=== PATIENT | female | born 1940 | race Caucasian/White ===

== ENCOUNTER 2019-12-06 15:23 | Outpatient (CLI) | payer MEDICARE, SELFPAY | END 2019-12-06 15:24 | disposition home or self-care (01) | LOC: CHSLAB 15:26 | PROVIDERS: PCP Family Medicine; Visit Provider Specialist | DX: L72.0 Epidermal cyst (principal) | CPT/HCPCS: 88305 ==

== ENCOUNTER 2020-07-19 08:55 | Outpatient (CLI) | payer MEDICARE, SELFPAY ==
[2020-07-19 09:24] LABS: Basophils Absolute Auto 0.1 K/mm3 (0.0-0.1); Basophils Percent Auto 1.2 % (0.2-1.2); Eosinophils Absolute Auto 0.2 K/mm3 (0-0.3); Hematocrit 45.9 % (37.0-47.0); Hemoglobin 15.5 g/dL (12.0-15.0); Immature Granulocyte Absolute 0.01 K/mm3 (0.00-0.031); Immature Granulocyte Percent A 0.2 % (0-0.5); Lymphocytes Absolute Auto 1.64 K/mm3 (0.9-3.2); Lymphocytes Percent Auto 38.5 % (18.3-44.2); Mean Corpuscular HGB Conc 33.8 g/dl (32-36); Mean Corpuscular Hemoglobin 30.8 pg (26-34); Mean Corpuscular Volume 91.1 fl (80-100); Mean Platelet Volume 10.4 fl (7.4-10.4); Monocytes Absolute Auto 0.3 K/mm3 (0.1-0.6); Monocytes Percent Auto 6.1 % (2.6-8.5); Neutrophils Absolute Auto 2.1 K/mm3 (1.3-6.7); Platelet Count Result 196 k/mm3 (150-375); Red Blood Count 5.04 M/mm3 (4.2-5.4); Red Cell Distribution Width 13.5 % (11.5-14.5); White Blood Count 4.3 K/mm3 (4.5-10.0)
[2020-07-19 09:35] LABS: Alanine Aminotransferase 23 U/L (4-35); Albumin Level 4.6 g/dL (3.5-5.1); Alkaline Phosphatase 107 U/L (38-126); Anion Gap 7 mmol/L (8-16); Aspartate Amino Transferase 42 U/L (14-36); Bilirubin,Total 0.9 mg/dL (0.2-1.3); Blood Urea Nitrogen 15 mg/dL (7-17); Carbon Dioxide 35 mmol/L (22-30); Chloride 103 mmol/L (98-107); Cholesterol 202 mg/dL (0-200); Estimated Glomerular Filt Rate 60; Glucose 107 mg/dL (65-105); HDL Direct 74 mg/dL; Potassium 4.1 mmol/L (3.4-5.0); Sodium 145 mmol/L (137-145); Triglycerides 80 mg/dL (<150)
[2020-07-19 09:46] LABS: LDL Cholesterol Direct 98 mg/dL
[2020-07-19 10:02] LABS: Add Urine Microscopic? NO; Appearance Urine Clear (Clear); Bilirubin Urine Negative (Negative); Blood Urine Negative (Negative); Color Urine Colorless (Yellow); Glucose Urine UA Negative (Negative); Ketones Urine Negative (Negative); Leukocyte Esterase Ur Negative LEU/UL (NEGATIVE); Nitrate Urine Negative (Negative); Protein Urine Negative (Negative); Specific Grav Ur 1.005 (1.001-1.035); Urobilinogen Urine Negative mg/dL (<2.0)
== END 2020-07-19 08:56 | disposition home or self-care (01) ==
PROVIDERS: PCP Family Medicine; Visit Provider Family Medicine
DX: E78.2 Mixed hyperlipidemia (principal); R53.83 Other fatigue; I10 Essential (primary) hypertension
CPT/HCPCS: 36415; 80053; 80061; 81003; 84443; 85025; 85027

== ENCOUNTER 2021-01-22 07:07 | Outpatient (CLI) | payer MEDICARE, SELFPAY ==
[2021-01-22 08:11] LABS: Alanine Aminotransferase 26 U/L (4-35); Albumin Level 4.5 g/dL (3.5-5.1); Alkaline Phosphatase 106 U/L (38-126); Anion Gap 9 mmol/L (8-16); Aspartate Amino Transferase 45 U/L (14-36); Bilirubin,Total 0.9 mg/dL (0.2-1.3); Blood Urea Nitrogen 19 mg/dL (7-17); Calcium 9.7 mg/dL (8.4-10.2); Carbon Dioxide 28 mmol/L (22-30); Chloride 106 mmol/L (98-107); Estimated Glomerular Filt Rate > 60; Glucose 103 mg/dL (65-105); Potassium 3.8 mmol/L (3.4-5.0); Sodium 143 mmol/L (137-145)
== END 2021-01-22 07:08 | disposition home or self-care (01) ==
LOC: ANHLAB 07:10
PROVIDERS: PCP Family Medicine; Visit Provider Family Medicine
DX: I10 Essential (primary) hypertension (principal)
CPT/HCPCS: 36415; 80053

== ENCOUNTER 2021-06-26 09:27 | Outpatient (CLI) | payer MEDICARE, SELFPAY ==
[2021-06-26 10:01] LABS: Hematocrit 44.6 % (37.0-47.0); Hemoglobin 14.7 g/dL (12.0-15.0); Mean Corpuscular Hemoglobin 31.1 pg (26-34); Mean Corpuscular Volume 94.5 fl (80-100); Mean Platelet Volume 10.3 fl (7.4-10.4); Platelet Count Result 175 k/mm3 (150-375); Red Blood Count 4.72 M/mm3 (4.2-5.4); Red Cell Distribution Width 13.5 % (11.5-14.5)
[2021-06-26 10:02] LABS: Alanine Aminotransferase 31 U/L (4-35); Albumin Level 4.6 g/dL (3.5-5.1); Alkaline Phosphatase 92 U/L (38-126); Anion Gap 6 mmol/L (8-16); Aspartate Amino Transferase 48 U/L (14-36); Bilirubin,Total 0.8 mg/dL (0.2-1.3); Blood Urea Nitrogen 22 mg/dL (7-17); Carbon Dioxide 30 mmol/L (22-30); Chloride 104 mmol/L (98-107); Cholesterol 200 mg/dL (0-200); Estimated Glomerular Filt Rate > 60; Glucose 111 mg/dL (65-110); HDL Direct 71 mg/dL; Sodium 140 mmol/L (137-145); Triglycerides 70 mg/dL (<150)
[2021-06-26 10:04] LABS: Add Urine Microscopic? YES; Appearance Urine Cloudy (Clear); Bacteria Urine 2+ /hpf; Bilirubin Urine Negative (Negative); Blood Urine Negative (Negative); Color Urine Yellow (Yellow); Glucose Urine UA Negative (Negative); Ketones Urine Negative (Negative); Leukocyte Esterase Ur Negative LEU/UL (NEGATIVE); Mucus Urine Rare /lpf; Nitrate Urine Negative (Negative); Protein Urine Negative (Negative); RBC Urine 0-2 /hpf (0-2); Specific Grav Ur 1.009 (1.001-1.035); Squamous Epithelial Cell Urine Occasional /hpf (Few); Urobilinogen Urine Negative mg/dL (<2.0)
[2021-06-26 10:13] LABS: LDL Cholesterol Direct 93 mg/dL
== END 2021-06-26 09:28 | disposition home or self-care (01) ==
LOC: ANHLAB 09:29
PROVIDERS: PCP Family Medicine; Visit Provider Family Medicine
DX: E78.5 Hyperlipidemia, unspecified (principal); I10 Essential (primary) hypertension; R53.83 Other fatigue
CPT/HCPCS: 36415; 80053; 80061; 81001; 84443; 85027

== ENCOUNTER 2021-06-28 12:35 | Outpatient (CLI) | payer MEDICARE, SELFPAY ==
[2021-06-28 13:15] LABS: Add Urine Microscopic? NO; Appearance Urine Clear (Clear); Bilirubin Urine Negative (Negative); Blood Urine Negative (Negative); Color Urine Straw (Yellow); Glucose Urine UA Negative (Negative); Ketones Urine Negative (Negative); Leukocyte Esterase Ur Negative LEU/UL (NEGATIVE); Nitrate Urine Negative (Negative); Protein Urine Negative (Negative); Specific Grav Ur 1.011 (1.001-1.035); Urobilinogen Urine Negative mg/dL (<2.0)
== END 2021-06-28 12:36 | disposition home or self-care (01) ==
PROVIDERS: PCP Family Medicine; Visit Provider Physician Assistant
DX: R30.0 Dysuria (principal)
CPT/HCPCS: 81003; 87086

== ENCOUNTER 2022-02-11 09:53 | Outpatient (CLI) | payer MEDICARE, SELFPAY ==
[2022-02-11 10:27] LABS: Alanine Aminotransferase 27 U/L (6-35); Albumin Level 4.5 g/dL (3.5-5.1); Alkaline Phosphatase 106 U/L (38-126); Anion Gap 6 mmol/L (8-16); Aspartate Amino Transferase 37 U/L (14-36); Bilirubin,Total 0.6 mg/dL (0.2-1.3); Blood Urea Nitrogen 21 mg/dL (7-17); Calcium 9.4 mg/dL (8.4-10.2); Carbon Dioxide 30 mmol/L (22-30); Chloride 106 mmol/L (98-107); Estimated Glomerular Filt Rate > 60; Glucose 112 mg/dL (65-110); Potassium 3.9 mmol/L (3.4-5.0); Sodium 142 mmol/L (137-145)
[2022-02-11 12:44] LABS: Hemoglobin A1C 5.3 % (<5.7)
== END 2022-02-11 09:54 | disposition home or self-care (01) ==
LOC: ANHLAB 09:56
PROVIDERS: PCP Family Medicine; Visit Provider Family Medicine
DX: R73.01 Impaired fasting glucose (principal); I10 Essential (primary) hypertension
CPT/HCPCS: 36415; 80053; 83036

== ENCOUNTER 2022-08-19 09:28 | Outpatient (CLI) | payer MEDICARE, SELFPAY ==
[2022-08-19 10:05] LABS: Hematocrit 45.6 % (37.0-47.0); Hemoglobin 15.1 g/dL (12.0-15.0); Mean Corpuscular HGB Conc 33.1 g/dl (32-36); Mean Corpuscular Hemoglobin 31.3 pg (26-34); Mean Corpuscular Volume 94.4 fl (80-100); Mean Platelet Volume 9.8 fl (7.4-10.4); Platelet Count Result 176 k/mm3 (150-375); Red Blood Count 4.83 M/mm3 (4.2-5.4); Red Cell Distribution Width 13.4 % (11.5-14.5); White Blood Count 3.9 K/mm3 (4.5-10.0)
[2022-08-19 10:16] LABS: Alanine Aminotransferase 34 U/L (6-35); Albumin Level 4.6 g/dL (3.5-5.1); Alkaline Phosphatase 102 U/L (38-126); Anion Gap 6 mmol/L (8-16); Aspartate Amino Transferase 43 U/L (14-36); Bilirubin,Total 0.8 mg/dL (0.2-1.3); Blood Urea Nitrogen 20 mg/dL (7-17); Calcium 9.4 mg/dL (8.4-10.2); Carbon Dioxide 31 mmol/L (22-30); Chloride 101 mmol/L (98-107); Cholesterol 214 mg/dL (0-200); Estimated Glomerular Filt Rate > 60; Glucose 103 mg/dL (65-110); HDL Direct 67 mg/dL; Potassium 3.6 mmol/L (3.4-5.0); Sodium 138 mmol/L (137-145); Triglycerides 61 mg/dL (<150)
[2022-08-19 10:18] LABS: Add Urine Microscopic? NO; Appearance Urine Clear (Clear); Bilirubin Urine Negative (Negative); Blood Urine Negative (Negative); Color Urine Light Yellow (Yellow); Glucose Urine UA Negative (Negative); Ketones Urine Negative (Negative); Leukocyte Esterase Ur Negative LEU/UL (NEGATIVE); Nitrate Urine Negative (Negative); Protein Urine Negative (Negative); Urobilinogen Urine 0.2 mg/dL (<2.0)
[2022-08-19 10:28] LABS: LDL Cholesterol Direct 91 mg/dL
[2022-08-19 10:38] LABS: Hemoglobin A1C 5.7 % (<5.7)
[2022-08-19 12:51] LABS: Vitamin D 25 Hydroxy 56.8 ng/mL
== END 2022-08-19 09:29 | disposition home or self-care (01) ==
PROVIDERS: PCP Family Medicine; Visit Provider Family Medicine
DX: E55.9 Vitamin D deficiency, unspecified (principal); E78.5 Hyperlipidemia, unspecified; I10 Essential (primary) hypertension; R53.83 Other fatigue; R73.01 Impaired fasting glucose
CPT/HCPCS: 36415; 80053; 80061; 81003; 82306; 83036; 84443; 85027

== ENCOUNTER 2023-03-09 09:44 | Outpatient (CLI) | payer MEDICARE, SELFPAY ==
[2023-03-09 11:22] LABS: Hemoglobin A1C 5.4 % (<5.7)
[2023-03-09 11:23] LABS: Alanine Aminotransferase 36 U/L (6-35); Albumin Level 4.4 g/dL (3.5-5.1); Alkaline Phosphatase 96 U/L (38-126); Anion Gap 0 mmol/L (8-16); Aspartate Amino Transferase 47 U/L (14-36); Bilirubin,Total 0.9 mg/dL (0.2-1.3); Blood Urea Nitrogen 23 mg/dL (7-17); Calcium 9.5 mg/dL (8.4-10.2); Carbon Dioxide 35 mmol/L (22-30); Chloride 102 mmol/L (98-107); Estimated Glomerular Filt Rate > 60; Glucose 97 mg/dL (65-110); Potassium 4.2 mmol/L (3.4-5.0); Sodium 137 mmol/L (137-145)
== END 2023-03-09 09:45 | disposition home or self-care (01) ==
PROVIDERS: PCP Family Medicine; Visit Provider Family Medicine
DX: R73.01 Impaired fasting glucose (principal); I10 Essential (primary) hypertension
CPT/HCPCS: 36415; 80053; 83036

== ENCOUNTER 2023-04-26 12:14 | Observation (INO) | payer MEDICARE, SELFPAY ==
[2023-04-26] VITALS (18 sets, daily range): BP systolic 141–187; BP diastolic 80–99; PULSE 62–93; RESP 12–29; TEMP 36.4–36.9; O2SAT 99–100; BMI 18.0
--- NOTE | ~2023-04-26 | XR_ITS ---
XR shoulder LT min 2V DATE: 04/26/2023 14:16 INDICATION: Fall today. Left shoulder pain TECHNIQUE: 4 views. COMPARISON: None FINDINGS: There is a comminuted fracture of the proximal humerus, including surgical neck and greater tuberosity fractures, with no significant displacement. Normal alignment at the acromioclavicular and glenohumeral joints. Osteopenia. IMPRESSION: Comminuted fracture of surgical neck and greater tuberosity Reviewed, dictated and finalized at location A.
--- NOTE | ~2023-04-26 | CT_ITS ---
EXAMINATION: CT brain wo con DATE: 04/26/2023 14:01 INDICATION: Fall. Struck left side of head. Syncope. Loss of consciousness. Neck pain. TECHNIQUE: Computed tomography (CT) of the head was performed without intravenous contrast. The mA wa s adjusted according to patient size. Iterative reconstruction technique was employed. Exam dose: 60 5.33 mGy-cm total exam DLP. COMPARISON: 05/12/2018 CT brain FINDINGS: High left parietal cephalohematoma is noted. No skull fracture is detected. No coup or contrecoup intracranial injury is detected. There is intracranial cerebral atherosclerosis including vertebral arteries, basilar artery and bilat eral carotid siphon internal carotid arteries. There is nonspecific diminished attenuation of the cer ebral white matter, likely due to chronic small vessel ischemic changes. No intracranial mass lesion or hemorrhage or cerebrovascular accident is detected. No midline shift o r mass effect or subdural or epidural hematoma is detected. The mastoid air cells and included paranasal sinuses are normally developed and aerated. IMPRESSION: High left parietal cephalohematoma; no skull fracture or acute intracranial finding Cerebral atherosclerosis and chronic small vessel ischemic changes of the cerebral white matter Reviewed, dictated and finalized at Location A. Reviewed, dictated and finalized at location A. IMPRESSION: High left parietal cephalohematoma; no skull fracture or acute int racranial finding Cerebral atherosclerosis and chronic small vessel ischemic changes of the cereb ral white matter
--- NOTE | ~2023-04-26 | XR_ITS ---
XR chest 1V DATE: 04/26/2023 14:16 INDICATION: Syncope TECHNIQUE: AP view COMPARISON: 05/12/2018 2 view chest FINDINGS: There is bilateral hyperinflation. No pulmonary infiltrate or consolidation, pulmonary vas cular congestion or pleural effusion or pneumothorax. Cardiomegaly. There is aortic tortuosity. There is fracture of the surgical neck and greater tuberosity of the proximal humerus. Osteopenia. IMPRESSION: Left humeral surgical neck and greater tuberosity fractures Bilateral hyperinflation; no active cardiopulmonary disease Reviewed, dictated and finalized at location A.
--- NOTE | ~2023-04-26 | US_ITS ---
EXAMINATION: US carotid duplex BI DATE: 04/27/2023 11:17 INDICATION: Syncope TECHNIQUE: Grayscale, color Doppler, and pulsed Doppler images of the cervical carotid arteries were obtained. The degree of vessel stenosis is placed in one of the following categories: normal, <50%, 5 0-69%, >=70% but less than near-occlusion, near-occlusion, or total occlusion. Note that percent sten osis relative to normal distal artery lumen diameter is indirectly measured from velocity measurement s as described by Clemente, et al. Radiology 2003; 229:340-346. COMPARISON: None. FINDINGS: RIGHT: The right common carotid artery (CCA) peak systolic velocity (PSV) is 95 cm/s. The right internal car otid artery (ICA) PSV is 72 cm/s. The right ICA end-diastolic velocity (EDV) is 18 cm/s. The right IC A/CCA PSV ratio is 0.8. Grayscale and color Doppler images yield an estimate of <50% diameter reducti on from plaque in the ICA. The external carotid artery (ECA) PSV is 90 cm/s. There is antegrade flow in the right vertebral artery. LEFT: The left CCA PSV is 99 cm/s. The left ICA PSV is 62 cm/s. The left ICA EDV is 20 cm/s. The left ICA/C CA PSV ratio is 0.6. Grayscale and color Doppler images yield an estimate of <50% diameter reduction from plaque in the ICA. The ECA PSV is 71 cm/s. There is antegrade flow in the left vertebral artery. IMPRESSION: 1. <50% stenosis in the right internal carotid artery. 2. <50% stenosis in the left internal carotid artery. Reviewed, dictated and finalized at location A.
--- NOTE | ~2023-04-26 | CT_ITS ---
EXAMINATION: CT cervical spine wo con DATE: 04/26/2023 14:02 INDICATION: Fall. Neck pain. TECHNIQUE: Computed tomography (CT) of the cervical spine was performed without intravenous contrast. Automated exposure control and iterative reconstruction technique were employed. Exam dose: 93.86 m Gy-cm total exam DLP. COMPARISON: None FINDINGS: C1 and C2 are normally aligned and the odontoid process is intact. There is severe degenerative disc disease at C2-3. There is anterior and posterior fusion at C3-C5. There is very severe degenerative disc disease at C5-6 and C6-7. There is 5 mm anterolisthesis with associated severe degenerative change at the apophyseal joints at C7-T1. IMPRESSION: No fracture is evident 4.3 mm anterolisthesis at C7-T1 with associated prominent degenerative change at the apophyseal joint s at this level Anterior and posterior fusion at C3-C5 Severe degenerative disc disease at C2-3 and particularly C5-6 and C6-7 Reviewed, dictated and finalized at Location A. Reviewed, dictated and finalized at location A. IMPRESSION: No fracture is evident 4.3 mm anterolisthesis at C7-T1 with associated prominent degenerative change a t the apophyseal joints at this level Anterior and posterior fusion at C3-C5 Severe degenerative disc disease at C2-3 and particularly C5-6 and C6-7
--- NOTE | ~2023-04-26 | XR_ITS ---
XR hip LT 2V w AP pelvis DATE: 04/26/2023 14:16 INDICATION: Fall today. Left hip pain. TECHNIQUE: AP pelvis. AP and lateral views of left hip. COMPARISON: 05/12/2018 pelvis FINDINGS: Levoscoliosis and multilevel degenerative disc disease of the lumbar spine. No pelvic fracture or bone destruction is detected. The sacroiliac joints and pubic symphysis are in tact. No fracture or dislocation, avascular necrosis or bone destruction of the left hip. IMPRESSION: No evidence of pelvic or left hip fracture Reviewed, dictated and finalized at location A.
--- NOTE | 2023-04-26 12:25 | ECG_ITS ---
Measurements Intervals [place] Rate: 68 P: 238 MO: 127 QRS: -58 QRSD: 104 T: 56 QT: 415 QTc: 442 Interpretive Statements ECTOPIC ATRIAL RHYTHM LEFT ANTERIOR FASCICULAR BLOCK [QRS AXIS <= -45, QR IN I, RS IN II] Nonspecific ST abnormality Abnormal ECG NO PREVIOUS ECG AVAILABLE FOR COMPARISON Electronically Signed On 04-27-2023 11:55:56 CDT by Roberto Gamino M.D.
[2023-04-26 12:46] LABS: Basophils Absolute Auto 0.1 K/mm3 (0.0-0.1); Basophils Percent Auto 0.9 % (0.2-1.2); Eosinophils Percent Auto 0.5 % (0-4.4); Hematocrit 47.2 % (37.0-47.0); Hemoglobin 15.6 g/dL (12.0-15.0); Immature Granulocyte Absolute 0.07 K/mm3 (0.00-0.031); Immature Granulocyte Percent A 1.3 % (0-0.5); Lymphocytes Absolute Auto 0.99 K/mm3 (0.9-3.2); Lymphocytes Percent Auto 17.8 % (18.3-44.2); Mean Corpuscular HGB Conc 33.1 g/dl (32-36); Mean Corpuscular Volume 93.8 fl (80-100); Mean Platelet Volume 10.4 fl (7.4-10.4); Monocytes Absolute Auto 0.3 K/mm3 (0.1-0.6); Monocytes Percent Auto 4.5 % (2.6-8.5); Neutrophils Absolute Auto 4.2 K/mm3 (1.3-6.7); Platelet Count Result 163 k/mm3 (150-375); Red Blood Count 5.03 M/mm3 (4.2-5.4); Red Cell Distribution Width 13.8 % (11.5-14.5); White Blood Count 5.6 K/mm3 (4.5-10.0)
[2023-04-26 12:57] LABS: Alanine Aminotransferase 29 U/L (6-35); Albumin Level 4.4 g/dL (3.5-5.1); Alkaline Phosphatase 88 U/L (38-126); Anion Gap 2 mmol/L (8-16); Aspartate Amino Transferase 42 U/L (14-36); Bilirubin,Total 0.7 mg/dL (0.2-1.3); Blood Urea Nitrogen 25 mg/dL (7-17); Calcium 9.6 mg/dL (8.4-10.2); Carbon Dioxide 30 mmol/L (22-30); Chloride 105 mmol/L (98-107); Estimated CRCL calculation 46 ml/min; Estimated Glomerular Filt Rate > 60; Glucose 114 mg/dL (65-110); Potassium 3.9 mmol/L (3.4-5.0); Sodium 137 mmol/L (137-145)
--- NOTE | 2023-04-26 13:11 | ED.SYNCOPE ---
HPI - Syncope General Chief Complaint: Syncope Stated Complaint: SYNCOPY History of Present Illness HPI narrative: Patient is an 82-year-old female with a history of hypertension presenting after syncopal episode. Patient states that she was doing some chores around the house when she suddenly passed out and fell on her left side. States that she does not remember feeling lightheaded prior to the event. No nausea, chest pain, shortness of breath. States that she was able to get up and she was having left shoulder and hip pain. States that she feels like she has a UTI due to urinary frequency. She denies headache, numbness or weakness, abdominal pain, vomiting, leg swelling. Reports a few episodes of diarrhea. Related Data Home Medications Medication Instructions Recorded Confirmed fluticasone propionate 50 1 spray intranasal DAILY PRN 08/10/19 04/26/23 mcg/actuation nasal Allergy Symptoms spray,suspension (Allergy Relief (fluticasone)) losartan 50 mg tablet 50 mg PO DAILY 08/10/19 04/26/23 nebivolol 20 mg tablet (Bystolic) 20 mg PO DAILY 08/10/19 04/26/23 cranberry 500 mg capsule 400 mg PO BID 03/07/20 04/26/23 docusate sodium 100 mg capsule 100 mg PO BID 03/07/20 04/26/23 (Stool Softener) multivitamin 1 tablet PO DAILY 03/07/20 04/26/23 psyllium husk 3.4 gram/5.4 gram 1 tbsp PO DAILY 03/07/20 04/26/23 oral powder (Metamucil) triamcinolone acetonide 0.1 % 1 applic topical DAILY PRN Allergy 07/30/20 04/26/23 topical cream Symptoms buspirone 10 mg tablet 10 mg PO DAILY 04/26/23 04/26/23 calcium citrate malate-vitamin D3 200 tablet PO DAILY 04/26/23 04/26/23 500 mg-200 unit tablet carboxymethylcellulose 0.5 1 drp EACH EYE QID PRN Dry Eyes 04/26/23 04/26/23 %-glycerin 0.9 % eye drops (Refresh Relieva) prednisolone acetate 1 % eye 1 drp RIGHT EYE TID 04/26/23 04/26/23 drops,suspension Allergies Allergy/AdvReac Type Severity Reaction Status Date / Time codeine Allergy Unknown Unknown Verified 03/16/23 10:17 levocetirizine Allergy Unknown Unknown Verified 03/16/23 10:17 levofloxacin Allergy Unknown Unknown Verified 03/16/23 10:17 miconazole Allergy Unknown Unknown Verified 03/16/23 10:17 nitrofurantoin Allergy Unknown Unknown Verified 03/16/23 10:17 Penicillins Allergy Unknown Unknown Verified 03/16/23 10:17 skin cleanser combination Allergy Unknown Unknown Verified 03/16/23 10:17 no.17 Sulfa (Sulfonamide Allergy Unknown Unknown Verified 03/16/23 10:17 Antibiotics) Review of Systems Review of Systems: All systems reviewed & are unremarkable except as noted in HPI and below PMFSH Past Medical History Medical History Anxiety Arthritis Cataracts, bilateral HTN (hypertension) Hypercholesterolemia Impaired fasting glucose Osteoporosis UTI (urinary tract infection) Surgical History Surgical History H/O: hysterectomy History of appendectomy Hx of cholecystectomy Hx of tonsillectomy Social History Social History Smoking status: Never smoker Second hand tobacco smoke exposure: No Alcohol intake: never Substance use: never Substance use type: does not use Lack of Transportation: No Lack of Food: Never True Current Housing: I Have Housing Concerned About Future Housing: No Difficulty Paying Gas/Electric Bills: No Difficulty Paying for Meds: No Currently Unemployed: No Education: Decline to Answer Difficulty w/ Childcare or Family Care: No Living arrangements: with family Occupation/Education: retired Gender identity (if verbalized by the patient): Female Spiritual care concerns: No Exam Narrative: GENERAL: Well-appearing, well-nourished, and in no acute distress. HEAD: Normocephalic, superficial abrasion left forehead and left cheek EYES: PERRLA and EOMI. ENT: Nares cl
[2023-04-26 13:30] LABS: INR 0.9; Prothrombin Time 12.9 Seconds (11.1-14.7)
[2023-04-26 13:31] LABS: Partial Thromboplastin Time 25.3 SECONDS (22.3-36.8)
[2023-04-26 13:33] LABS: Lipase 85 U/L (23-300); Magnesium 2.4 mg/dL (1.6-2.3)
[2023-04-26] MEDS: SODIUM CHLORIDE 0.9% IV 1,000 ML 999 ML IV CONT (13:40)
[2023-04-26 13:44] LABS: Troponin I < 0.012 ng/mL (0.000-0.034)
[2023-04-26 13:45] LABS: Appearance Urine Cloudy (Clear); Bacteria Urine None Seen /hpf; Bilirubin Urine Negative (Negative); Blood Urine Negative (Negative); Color Urine Yellow (Yellow); Glucose Urine UA Negative (Negative); Ketones Urine Trace mg/dL (Negative); Leukocyte Esterase Ur Negative LEU/UL (Negative); Nitrate Urine Negative (Negative); Non Pathogenic Casts 0-2; Protein Urine Negative (Negative); RBC Urine 0-2 /hpf (0-2); Specific Grav Ur 1.013 (1.001-1.035); Squamous Epithelial Cell Urine None seen /hpf (Few); Urobilinogen Urine 0.2 mg/dL (<2.0); WBC Urine 0-5 /hpf; pH Urine 8.5 (5.0-9.0)
[2023-04-26 13:50] LABS: Add Urine Microscopic? YES
[2023-04-26 13:52] LABS: Lactic Acid Reflex 2.1 mmol/L (0.7-2.0)
--- NOTE | 2023-04-26 15:52 | PM.IMHP ---
H&P: HPI History of Present Illness Date/Time: 04/26/23 15:52 Chief Complaint: This is an 82-year-old female patient who is typically completely independent and still drives who presents to the emergency department after a syncopal episode that was unprovoked. Narrative: Patient states that she had been in her bedroom getting her 's medications together when the next thing she knows she woke up lying on the floor with left arm pain and left hip pain. Patient reports that she has some tenderness to the left side of head as well. Patient states that before the incident she felt completely fine and she did not feel any symptoms before she apparently passed out. She denies any chest pain or shortness of breath. Patient denies any nausea or vomiting constipation diarrhea abdominal pain. Patient reports that her left arm hurts and her left hip did hurt but is already feeling better. Patient is aware that she has a fracture to her left shoulder and that the plan is to place this in a sling and have Orthopedics see her tomorrow. Orthopedics has been consulted by the emergency department. Review of Systems Review of Systems: All systems reviewed & are unremarkable except as noted in HPI and below PMFSH Past Medical History Medical History Anxiety Arthritis Cataracts, bilateral HTN (hypertension) Hypercholesterolemia Impaired fasting glucose Osteoporosis UTI (urinary tract infection) Surgical History Surgical History H/O: hysterectomy History of appendectomy Hx of cholecystectomy Hx of tonsillectomy Social History Social History Smoking status: Never smoker Second hand tobacco smoke exposure: No Alcohol intake: never Substance use: never Substance use type: does not use Living arrangements: with family Occupation/Education: retired Gender identity (if verbalized by the patient): Female Meds Home Medications and Allergies Home Medications Medication Instructions Recorded Confirmed Type fluticasone propionate 50 1 spray intranasal DAILY PRN 08/10/19 04/26/23 History mcg/actuation nasal Allergy Symptoms spray,suspension (Allergy Relief (fluticasone)) losartan 50 mg tablet 50 mg PO DAILY 08/10/19 04/26/23 History nebivolol 20 mg tablet (Bystolic) 20 mg PO DAILY 08/10/19 04/26/23 History cranberry 500 mg capsule 400 mg PO BID 03/07/20 04/26/23 History docusate sodium 100 mg capsule 100 mg PO BID 03/07/20 04/26/23 History (Stool Softener) multivitamin 1 tablet PO DAILY 03/07/20 04/26/23 History psyllium husk 3.4 gram/5.4 gram 1 tbsp PO DAILY 03/07/20 04/26/23 History oral powder (Metamucil) triamcinolone acetonide 0.1 % 1 applic topical DAILY PRN Allergy 07/30/20 04/26/23 History topical cream Symptoms alprazolam 0.25 mg tablet 0.25 mg PO DAILY #30 tabs 04/21/23 04/26/23 Rx estradiol 0.01% (0.1 mg/gram) 1 g vaginal 3XW #42.5 grams 04/22/23 04/26/23 Rx vaginal cream (Estrace) buspirone 10 mg tablet 10 mg PO DAILY 04/26/23 04/26/23 History calcium citrate malate-vitamin D3 200 tablet PO DAILY 04/26/23 04/26/23 History 500 mg-200 unit tablet carboxymethylcellulose 0.5 1 drp EACH EYE QID PRN Dry Eyes 04/26/23 04/26/23 History %-glycerin 0.9 % eye drops (Refresh Relieva) prednisolone acetate 1 % eye 1 drp RIGHT EYE TID 04/26/23 04/26/23 History drops,suspension Allergies Allergy/AdvReac Type Severity Reaction Status Date / Time codeine Allergy Unknown Unknown Verified 03/16/23 10:17 levocetirizine Allergy Unknown Unknown Verified 03/16/23 10:17 levofloxacin Allergy Unknown Unknown Verified 03/16/23 10:17 miconazole Allergy Unknown Unknown Verified 03/16/23 10:17 nitrofurantoin Allergy Unknown Unknown Verified 03/16/23 10:17 Penicillins Allergy Unknown Unknown Verified 03/16/23 10:17 skin cl
[2023-04-26 16:24] LABS: Troponin I < 0.012 ng/mL (0.000-0.034)
[2023-04-26 16:38] LABS: Reflex Lactic Acid Yes or No Add Lactic
--- NOTE | 2023-04-26 17:05 | ADMGEN ---
This patient, Sushma Berger, was admitted to 3 Med Surg Room 311-01 @ 1650. Patient/family oriented to hospital policies and general routines including ID bracelet, bed and alarms, visiting hours, pain management, procedures, bathroom and other care routines, personal items, smoking policy, room service/diet, and visiting hours. Information on how to activate the Rapid Response Team has been discussed. Patient/Family are encouraged to report perceived risks to care and to ask questions if they do not understand what they are told or what they should do.
[2023-04-26 17:47] LABS: Lactic Acid 1.3 mmol/L (0.7-2.0)
[2023-04-26] MEDS: MORPHINE SULFATE (*CRX) 2 MG/ML INJ IV PUSH ×2 (18:57→23:07)
[2023-04-26 19:55] LABS: Troponin I < 0.012 ng/mL (0.000-0.034)
[2023-04-26] MEDS: prednisoLONE ACETATE 1% OPHTH 5 ML 1 DROP RIGHT EYE (20:45)
[2023-04-27] VITALS (10 sets, daily range): BP systolic 103–140; BP diastolic 46–90; PULSE 54–86; RESP 16–20; TEMP 36.3–37.2; O2SAT 98; BMI 18.0
[2023-04-27] MEDS: MORPHINE SULFATE (*CRX) 2 MG/ML INJ IV PUSH ×3 (04:30→13:32)
[2023-04-27 06:38] LABS: Hematocrit 38.9 % (37.0-47.0); Hemoglobin 12.6 g/dL (12.0-15.0); Immature Platelet Fraction Pct 9.2 % (0.9-11.2); Mean Corpuscular HGB Conc 32.4 g/dl (32-36); Mean Corpuscular Hemoglobin 31.3 pg (26-34); Mean Corpuscular Volume 96.8 fl (80-100); Mean Platelet Volume 11.4 fl (7.4-10.4); Platelet Count Result 106 k/mm3 (150-375); Red Blood Count 4.02 M/mm3 (4.2-5.4); Red Cell Distribution Width 13.8 % (11.5-14.5); White Blood Count 5.9 K/mm3 (4.5-10.0)
[2023-04-27 06:45] LABS: Anion Gap 0 mmol/L (8-16); Blood Urea Nitrogen 16 mg/dL (7-17); Calcium 8.3 mg/dL (8.4-10.2); Carbon Dioxide 27 mmol/L (22-30); Chloride 106 mmol/L (98-107); Estimated CRCL calculation 46 ml/min; Estimated Glomerular Filt Rate > 60; Glucose 92 mg/dL (65-110); Potassium 3.9 mmol/L (3.4-5.0); Sodium 133 mmol/L (137-145)
--- NOTE | 2023-04-27 08:30 | PCOTNOTE ---
Pt. awaiting ortho consult for humeral fx., prior to being evaluated by therapy services. Following.
--- NOTE | 2023-04-27 09:18 | ECG_ITS ---
Measurements Intervals [place] Rate: 66 P: 15 PA: 170 QRS: -39 QRSD: 114 T: 16 QT: 425 QTc: 446 Interpretive Statements SINUS RHYTHM MARKED LEFT AXIS DEVIATION [QRS AXIS < -30] INCOMPLETE RIGHT BUNDLE BRANCH BLOCK [90+ ms QRS DURATION, TERMINAL R IN V1/V2, 40+ ms S IN I/aVL/V4/V5/V6] ABNORMAL ECG COMPARED TO ECG 04/26/2023 12:18:01 SINUS RHYTHM NOW PRESENT LEFT-AXIS DEVIATION NOW PRESENT INCOMPLETE RIGHT BUNDLE-BRANCH BLOCK NOW PRESENT Electronically Signed On 04-27-2023 12:04:15 CDT by Roberto Gamino M.D.
[2023-04-27] MEDS: prednisoLONE ACETATE 1% OPHTH 5 ML 1 DROP RIGHT EYE ×3 (09:27→17:36)
[2023-04-27] MEDS: ARTIFICIAL TEARS OPHTH SOLN 15 ML BOTTLE 1 DROP EACH EYE (09:27)
[2023-04-27] MEDS: NEBIVOLOL HCL 5 MG TABLET 20 MG PO (09:29)
[2023-04-27] MEDS: LOSARTAN POTASSIUM 50 MG TABLET PO (09:31)
[2023-04-27] MEDS: MULTIVITAMINS THERAPEUTIC TAB (*BKC) 1 TABLET PO (09:31)
[2023-04-27] MEDS: ALPRAZolam (*CRX) 0.25 MG TABLET PO (09:31)
[2023-04-27] MEDS: DOCUSATE SODIUM 100 MG CAPSULE PO ×2 (09:31→17:36)
[2023-04-27] MEDS: busPIRone HCL 10 MG TABLET PO (09:31)
--- NOTE | 2023-04-27 09:39 | PCPTNOTE ---
Ortho consult pending at this time. Awaiting recommendation/weight bearing status prior to mobilizing pt. Will follow.
--- NOTE | 2023-04-27 10:30 | PM.IMPN ---
Progress Note: A&P Assessment and Plan (1) Fracture, humerus closed: Qualifiers: Encounter type: initial encounter Fracture alignment: nondisplaced Humerus Location: greater tuberosity Laterality: left Qualified Code(s): S42.255A - Nondisplaced fracture of greater tuberosity of left humerus, initial encounter for closed fracture Code(s): S42.309A - Unspecified fracture of shaft of humerus, unspecified arm, initial encounter for closed fracture Status: Acute Assessment and Plan: Shoulder xray Not significantly displaced fracture left humerus at the surgical and greater trochanter. Continue sling Orthopedics consulted thank you for your help Pain medications as indicated Await further recommendations as indicated (2) Syncope and collapse: Code(s): R55 - Syncope and collapse Status: Acute Assessment and Plan: Presented to the ED after having a syncopal episode and fall at home Orthostatic BP Layin/81, Sitting 174/95, Standing 162/92 CT of the brain high left parietal cephalohematoma, no skull fracture or acute intracranial findings Carotid Doppler ordered EKG repeated ordered Fall precautions PT/OT (3) Essential hypertension: Code(s): I10 - Essential (primary) hypertension Status: Acute Assessment and Plan: Current BP is 140/78 Continue home losartan, nebivolol Trend BP Adjust therapy as indicated Time Spent With Patient Time: 48 minutes Time with patient: Greater than 35 minutes Subjective Date/time seen: 04/27/23 1030 Interval history: 04/27/23 103 Patient is doing well. Her only complaint is the pain in her left arm. She stated that she was unable to move her arm up. She also stated that she is not having any chest pain, shortness of breath, nausea, vomiting, diarrhea, constipation. 04/26/23? 15:52 Patient states that she had been in her bedroom getting her 's medications together when the next thing she knows she woke up lying on the floor with left arm pain and left hip pain.? Patient reports that she has some tenderness to the left side of head as well.? Patient states that before the incident she felt completely fine and she did not feel any symptoms before she apparently passed out.? She denies any chest pain or shortness of breath.? Patient denies any nausea or vomiting constipation diarrhea abdominal pain.? Patient reports that her left arm hurts and her left hip did hurt but is already feeling better.? Patient is aware that she has a fracture to her left shoulder and that the plan is to place this in a sling and have Orthopedics see her tomorrow.? Orthopedics has been consulted by the emergency department. Review of Systems Review of Systems: All systems reviewed & are unremarkable except as noted in HPI and below Exam Narrative: General: well-nourished, well-appearing 82-year-old female, sitting up in bed, comfortable, NARD Neuro: awake, alert and oriented x4, speech clear, no focal neuro deficits noted HEENMT: normocephalic, atraumatic, EOMI, sclerae anicteric, moist oral mucosa Respiratory: Clear to auscultation bilaterally without crackles, rhonchi or wheezes, nonlabored breathing Cardio: regular rate, regular rhythm with S1-S2 Abdomen: nondistended, normoactive bowel sounds, soft, nontender to palpation Extremities: no edema, erythema, or tenderness to palpation, DP pulses 2+ bilaterally, left arm in sling with limited range of motion Skin: no rashes or lesions, warm and dry Psych: appropriate mood and affect, judgment and insight intact Objective Data Vital Signs Vital Signs: Vital Signs - 24 hr 04/26/23 12:11 04/26/23 12:22 04/26/23 12:22 Temperature 98.0 F Pulse Rate 85 78 Respiratory Rate 19 Blood Pressure 160/96 H Pulse Oximetry 100 100 Oxygen Delivery Room Air Room Air 04/26/23 13:34 04/26/23 13:34 04/26/23 13:34 Temperat
--- NOTE | 2023-04-27 15:06 | PM.CNOR ---
Assessment and Plan Assessment and plan (1) Fracture of proximal end of left humerus: Qualifiers: Encounter type: initial encounter Fracture alignment: displaced Fracture type: closed <ESTER Thomas - Last Filed: 04/28/23 11:02> Code(s): S42.202A - Unspecified fracture of upper end of left humerus, initial encounter for closed fracture <ESTER Thomas - Last Filed: 04/28/23 11:02> Status: Acute <ESTER Thomas - Last Filed: 04/28/23 11:02> Assessment and Plan: Minimally displaced left comminuted 3 part proximal humerus fracture involving the greater tuberosity and the surgical neck. She is right hand dominant. This can be managed non-operatively. We discussed the risk of stiffness, weakness, and decreased range of motion once the shoulder is healed. She and her family show good understanding. Continue sling. May work simple range of motion for her wrist and elbow. Passive range of motion only as tolerable for the shoulder. She may start PT/OT as able. She would like home health physical therapy at discharge. That is reasonable. Will follow up in office in 2 weeks with xrays. <ESTER Thomas - Last Filed: 04/28/23 11:02> Assessment and Plan: Patient seen and examined. Discussed above care plan. Radiographic images reviewed personally. Agree with conservative care plan. <Gilmer Ramos MD - Last Filed: 04/27/23 17:12> History of Present Illness HPI Consult date: 04/28/23 <ESTER Thomas - Last Filed: 04/28/23 11:02> 04/27/23 <Gilmer Ramos MD - Last Filed: 04/27/23 17:12> Chief complaint: syncope <ESTER Thomas - Last Filed: 04/28/23 11:02> Narrative: Patient fell 04/26/23 in her bedroom. She had a syncopal episode. She had family right next to her when she fell. She states she did hit her head. She had pain on her left lower leg which had resolved, her left shoulder, and has skin tears on her right arm. She is right hand dominant. She notes she is still having 10/10 pain and the morphine is not controlling her pain. No numbness or tingling. <ESTER Thomas - Last Filed: 04/28/23 11:02> Review of Systems Review of Systems: All systems reviewed & are unremarkable except as noted in HPI and below <ESTER Thomas - Last Filed: 04/28/23 11:02> [facility] Past Medical History Medical History: Medical History Anxiety Arthritis Cataracts, bilateral HTN (hypertension) Hypercholesterolemia Impaired fasting glucose Osteoporosis UTI (urinary tract infection) <ESTER Thomas - Last Filed: 04/28/23 11:02> Surgical History Surgical History: Surgical History H/O: hysterectomy History of appendectomy Hx of cholecystectomy Hx of tonsillectomy <ESTER Thomas - Last Filed: 04/28/23 11:02> Social History Social History: Social History Smoking status: Never smoker Second hand tobacco smoke exposure: No Alcohol intake: never Substance use: never Substance use type: does not use Lack of Transportation: No Lack of Food: Never True Current Housing: I Have Housing Concerned About Future Housing: No Difficulty Paying Gas/Electric Bills: No Difficulty Paying for Meds: No Currently Unemployed: No Education: Decline to Answer Difficulty w/ Childcare or Family Care: No Living arrangements: with family Occupation/Education: retired Gender identity (if verbalized by the patient): Female Spiritual care concerns: No <ESTER Thomas - Last Filed: 04/28/23 11:02> Meds Home Medications and Allergies Home medications: Home Medications Medication Instructions Recorded Confirmed Type fluticasone propionate 50 1 spray
[2023-04-27] MEDS: oxyCODONE HCL (*CRX) 5 MG TAB IR PO (17:35)
--- NOTE | 2023-04-27 18:10 | PC.NURSE ---
Pt continues to report 10/10 pain. Pt was started on Oxycodone and is being monitored carefully for any reaction to medication. Pt refused dilaudid after speaking with daughter and . Pt was apprehensive about taking oxycodone but agreed after discussing with family. Pt requested to take with dinner. Medication given, pt tolerating well and showing no signs of adverse reactions. Will continue to monitor pt.
[2023-04-27] MEDS: ACETAMINOPHEN 325 MG TABLET 650 MG PO (21:27)
[2023-04-28] VITALS (10 sets, daily range): BP systolic 84–152; BP diastolic 52–66; PULSE 53–83; RESP 17–18; TEMP 36.6–36.8; O2SAT 95–100
[2023-04-28] MEDS: ACETAMINOPHEN 325 MG TABLET 650 MG PO (03:29)
[2023-04-28 06:32] LABS: Hematocrit 42.6 % (37.0-47.0); Hemoglobin 13.7 g/dL (12.0-15.0); Mean Corpuscular HGB Conc 32.2 g/dl (32-36); Mean Corpuscular Hemoglobin 31.1 pg (26-34); Mean Corpuscular Volume 96.6 fl (80-100); Mean Platelet Volume 11.1 fl (7.4-10.4); Platelet Count Result 144 k/mm3 (150-375); Red Blood Count 4.41 M/mm3 (4.2-5.4); Red Cell Distribution Width 13.9 % (11.5-14.5); White Blood Count 7.1 K/mm3 (4.5-10.0)
[2023-04-28 06:45] LABS: Anion Gap 7 mmol/L (8-16); Blood Urea Nitrogen 27 mg/dL (7-17); Calcium 8.9 mg/dL (8.4-10.2); Carbon Dioxide 28 mmol/L (22-30); Chloride 105 mmol/L (98-107); Estimated CRCL calculation 40 ml/min; Estimated Glomerular Filt Rate > 60; Glucose 96 mg/dL (65-110); Potassium 3.8 mmol/L (3.4-5.0); Sodium 140 mmol/L (137-145)
--- NOTE | 2023-04-28 09:15 | PM.DS ---
DS: Admitting Diagnosis Discharge Date 04/28/23914 Admitting Diagnosis fall, fracture of the proximal end of the left humerus DS: Discharge Diagnosis Discharge Diagnosis (1) Fracture, humerus closed: Code(s): S42.309A - Unspecified fracture of shaft of humerus, unspecified arm, initial encounter for closed fracture Status: Acute Assessment and Plan: Shoulder xray Not significantly displaced fracture left humerus at the surgical and greater trochanter. Continue sling Orthopedics consulted thank you for your help Pain medications as indicated Await further recommendations as indicated (2) Syncope and collapse: Code(s): R55 - Syncope and collapse Status: Acute Assessment and Plan: Presented to the ED after having a syncopal episode and fall at home Orthostatic BP Layin/81, Sitting 174/95, Standing 162/92 CT of the brain high left parietal cephalohematoma, no skull fracture or acute intracranial findings Carotid Doppler ordered EKG repeated ordered Fall precautions PT/OT (3) Essential hypertension: Code(s): I10 - Essential (primary) hypertension Status: Acute Assessment and Plan: Current BP is 140/78 Continue home losartan, nebivolol Trend BP Adjust therapy as indicated DS: Summary Hospital Course Hospital Course: patient is an 82 female with past medical history of anxiety, hypertension, arthritis, osteoporosis who presented to the ED with complaints of fall. Patient stated she was walking down the to help her when she fell to the ground. She denies any lightheadedness or dizziness. Head CT was negative for any acute findings. Doppler showed less than 50% stenosis bilaterally. EKG was stable. x-ray of the left shoulder showed commuted fracture of the proximal humerus mildly displaced. Orthopedics has been consulted. It was noted that the patient did not needs surgery at this time. Pain was managed with oxycodone. She denies any chest pain, shortness of breath, nausea, vomiting, diarrhea, constipation, weakness, or fatigue. She did work with PT/OT and did great. She is stable for discharge at this time. She will need to follow up with Orthopedics in 2 weeks. Spoke to her daughter about her current treatment plan. They are concerned about her cataract surgery which is scheduled for . Spoke to her about calling the surgeon to see what they recommend. Also talked to her about her pain medications. It was noted that the patient stated that she is really loopy with pain medicine. Will try tramadol. Daughter is really concerned about her pain. Patient does seem to be very mobile and able to do multitude of things on her own. At this time patient will be able to discharge today. Daughter is going to get the home ready for the patient's return. Home health has been set up. Patient is stable per labs and vital signs for discharge at this time Status at Discharge Functional status at discharge: independent ambulation Overall status at discharge: patient is progressing back to baseline Time Spent with Patient Time attestation: Total time spent providing and/or coordinating discharge services: 49 minutes Time spent: Greater than 30 minutes Specific discharge activities: Diagnostic testing, chart review, developing a treatment plan, education, care coordination documentation, physical exam, result review Exam Narrative: General: well-nourished, well-appearing 82-year-old female, sitting up in bed, comfortable, NARD Neuro: awake, alert and oriented x4, speech clear, no focal neuro deficits noted HEENMT: normocephalic, atraumatic, EOMI, sclerae anicteric, moist oral mucosa Respiratory: Clear to auscultation bilaterally without crackles, rhonchi or wheezes, nonlabored breathing Cardio: regular rate, regular rhythm with S1-S2 Abdomen: nondistended, normoactive bowel sounds, soft, nontender to pa
[2023-04-28] MEDS: busPIRone HCL 10 MG TABLET PO (09:26)
[2023-04-28] MEDS: traMADol HCL (*CRX) 50 MG TABLET PO (09:30)
[2023-04-28] MEDS: MULTIVITAMINS THERAPEUTIC TAB (*BKC) 1 TABLET PO (09:31)
[2023-04-28] MEDS: DOCUSATE SODIUM 100 MG CAPSULE PO ×2 (09:31→16:12)
[2023-04-28] MEDS: NEBIVOLOL HCL 5 MG TABLET 20 MG PO (09:31)
[2023-04-28] MEDS: LOSARTAN POTASSIUM 50 MG TABLET PO (09:33)
[2023-04-28] MEDS: PSYLLIUM POWDER PACKET PO (09:33)
--- NOTE | 2023-04-28 11:02 | PM.PNORT ---
Progress Note: A&P Assessment and Plan (1) Fracture of proximal end of left humerus: Qualifiers: Encounter type: subsequent encounter Fracture type: closed Fracture alignment: displaced Code(s): S42.202A - Unspecified fracture of upper end of left humerus, initial encounter for closed fracture Status: Acute Plan Minimally displaced left comminuted 3 part proximal humerus fracture involving the greater tuberosity and the surgical neck.? Pain controlled with Tylenol at rest. She did not tolerate Oxycodone. Progressing well. No changes. She is right hand dominant.? This can be managed non-operatively. We discussed the risk of stiffness, weakness, and decreased range of motion once the shoulder is healed. She and her family show good understanding. Continue sling. May work simple range of motion for her wrist and elbow. Passive range of motion only as tolerable for the shoulder. She may start PT/OT as able. She would like home health physical therapy at discharge. That is reasonable. Will follow up in office in 2 weeks with xrays.? Subjective Subjective Date/Time Seen: 04/28/23 11:02 Interval history: Patient resting comfortable in bed. Notes she did not tolerate the oxycodone. She had some dizziness and was off balance when walking. Pain is well controlled with Tylenol while at rest. She has significant pain with motion. Review of Systems Review of Systems: All systems reviewed & are unremarkable except as noted in HPI and below Exam Narrative: Thin elderly 82 y/o female. Alert and oriented. No obvious deformities. Wearing sling. Moderate ecchymosis and swelling at the left shoulder and down into the elbow. Skin tears covered with dressing on the right forearm. Distal light touch sensation intact. Pulses palpable. Able to move left fingers, wrist, and elbow. Objective Data Vital Signs Vital Signs: Vital Signs - 24 hr 04/27/23 14:00 04/27/23 16:00 04/27/23 12:03 Temperature 97.3 F L Pulse Rate 86 82 71 Respiratory Rate 20 Blood Pressure 109/46 L Pulse Oximetry 98 Oxygen Delivery 04/27/23 22:00 04/27/23 19:45 04/28/23 00:00 Temperature 99.0 F Pulse Rate 65 70 58 L Respiratory Rate 16 Blood Pressure 103/90 Pulse Oximetry 98 Oxygen Delivery 04/28/23 04:00 04/28/23 05:57 04/28/23 08:25 Temperature 98.2 F Pulse Rate 53 L 61 Respiratory Rate 18 Blood Pressure 120/63 Pulse Oximetry 100 Oxygen Delivery Room Air 04/28/23 09:31 Temperature Pulse Rate 67 Respiratory Rate Blood Pressure Pulse Oximetry Oxygen Delivery Intake/Output Intake/Output: Intake & Output 04/25/23 04/26/23 04/27/23 04/28/23 23:59 23:59 23:59 23:59 Intake Total 1240 750 200 Balance 1240 750 200 Meds/Results Medications: Active Medications Generic Name Dose Route Start Last Admin Trade Name Freq PRN Reason Stop Dose Admin Acetaminophen 650 mg 04/26/23 18:03 04/28/23 09:26 Acetaminophen 325 Mg Tablet PO 650 mg Q4H PRN Administration Mild Pain (1-3) or Fever Alprazolam 0.25 mg 04/27/23 09:00 04/27/23 09:31 Alprazolam (*Crx) 0.25 Mg Tablet PO 0.25 mg DAILY SPENCER Administration Artificial Tears 1 drop 04/26/23 19:15 04/27/23 09:27 Artificial Tears Ophth Soln 15 Ml Bottle EACH EYE 1 drop QID PRN Administration Dry Eyes Buspirone HCl 10 mg 04/27/23 09:00 04/28/23 09:26 Buspirone Hcl 10 Mg Tablet PO 10 mg DAILY SPENCER Administration Calcium Citrate 1 tablet 04/27/23 09:00 04/28/23 09:26 Calcium Citrate 315 Mg/Vitamin D 250 Units Tab PO 1 tablet DAILY SPENCER Administration Docusate Sodium 100 mg 04/27/23 09:00 04/28/23 09:31 Docusate Sodium 100 Mg Capsule PO 100 mg BID SPENCER Administration Fluticasone Propionate 1 spray 04/26/23 18:56 Fluticasone Propionate 0.05% Na Spr 16 Gm Btl (*Bkc) NASAL DAILY PRN Allergy Symptoms Losartan Potassium 50 mg 04/27/23 09:00 08
[2023-04-28] MEDS: prednisoLONE ACETATE 1% OPHTH 5 ML 1 DROP RIGHT EYE ×2 (11:52→16:10)
[2023-04-28] MEDS: ALPRAZolam (*CRX) 0.25 MG TABLET PO (11:52)
[2023-04-28] MEDS: SODIUM CHLORIDE 0.9% IV 1,000 ML 999 ML IV CONT (15:29)
== END 2023-04-28 17:50 | disposition home health service (06) ==
LOC: ANHED 12:56 → ANH3MEDSUR 04-27 15:07
PROVIDERS: Nurse Practitioner; Admitting Provider Student in an Organized Health Care Education/Training Program; Emergency Provider Emergency Medicine; PCP Family Medicine; Visit Provider Internal Medicine
DX: S42.212A Unspecified displaced fracture of surgical neck of left humerus, initial encounter for closed fracture (principal); S00.03XA Contusion of scalp, initial encounter; W18.30XA Fall on same level, unspecified, initial encounter; R55 Syncope and collapse; M25.552 Pain in left hip; M50.31 Other cervical disc degeneration, high cervical region; M50.322 Other cervical disc degeneration at C5-C6 level; M50.323 Other cervical disc degeneration at C6-C7 level; M43.12 Spondylolisthesis, cervical region; I10 Essential (primary) hypertension; I67.2 Cerebral atherosclerosis; R90.82 White matter disease, unspecified; F41.9 Anxiety disorder, unspecified; R35.0 Frequency of micturition; R94.31 Abnormal electrocardiogram [ECG] [EKG]; E78.5 Hyperlipidemia, unspecified; R19.7 Diarrhea, unspecified; H26.9 Unspecified cataract; M81.0 Age-related osteoporosis without current pathological fracture; Z79.52 Long term (current) use of systemic steroids; Z79.899 Other long term (current) drug therapy
CPT/HCPCS: 36415; 70450; 71045; 72125; 73030; 73502; 80048; 80053; 81001; 83605; 83690; 83735; 84484; 85025; 85027; 85055; 85610; 85730; 93005; 93880; 96361; 96374; 96376; 97161; 97166; 97530; 97535; 99285; A4565; A9270; G0378; J2270; J7030

== ENCOUNTER 2023-07-16 13:00 | Outpatient (RCR) | payer MEDICARE, SELFPAY ==
--- NOTE | 2023-06-16 10:32 | OTOPEVAL1 ---
Assessment and note entered by Donovan Cruz, WENDY/Minda, CHT Evaluation Information Assessment Status Evaluation Diagnosis Left proximal humerus fracture Onset 04/26/23 Subjective Information Patient is right handed. She is reporting low amounts of pain, no longer taking pain medication. Home health got her started on pendulum exercises, scapular retraction, and passive shoulder flexion and abduction with assistance from her daughter. She reports being limited with getting comfortable in bed (still sleeping in a recliner), lifting a soup can, washing her hair, and going up/down steps as she needs her left UE on the railing. Reported Pain Level Pain Score 0: Self Report Assessment OT Clinical Summary Patient referred to OT x7 weeks s/p left proximal humeral fracture sustained from a fall, treated conservatively in a sling. She presents today with a decline in ADL independence due to residual stiffness and weakness that limits 2-handed tasks and any sort of lifting with the left UE. Skilled OT indicated to maximize functional ROM and strength of the left UE to facilitate optimal ADL independence. Plan of Care Interventions Therapeutic Exercise,Manual Therapy,Neuro Re- education,Therapeutic Activities,Hot Pack/Cold Pack OT Services Indicated Yes Treatment Frequency and 1-2x/week for 4 weeks Duration These treatments will address the objective and functional deficits as defined above. The patient will be advanced safely and appropriately in order for the patient to progress towards his/her prior level of function. Additional exercises will be introduced and as well as a comprehensive home exercise program upon discharge, if needed, ?to ensure carryover of functional gains achieved in the clinic. This treatment plan has been reviewed and agreement upon by the patient.
--- NOTE | 2023-06-16 10:33 | OPREHPOC ---
Outpatient Therapy Plan of Care This is a Multidisciplinary Plan of Care that may contain components documented by all disciplines (PT, OT, and ST.) OT Problem 1 OT Problem #1 Knowledge Deficit OT Goal 1 Goal 1. Patient to be independent with instructed materials. Target Visit 8 OT Problem 2 OT Problem #2 Impaired Range of Motion OT Goal 1 Goal 1. To improve functional ROM for ADL tasks, patient to increase active ROM of the left shoulder: - flexion to 130 - abduction to 130 - ER to be able to touch C7 OT Problem 3 OT Problem #3 Impaired Strength OT Goal 1 Goal Hold strengthening until 10 weeks post injury (week of 07/05/23): 1. To improve functional shoulder strength for ADLs, patient to be able to complete shoulder strengthening with at least yellow t-band in the following directions: flexion, abduction, and ER, x20 reps.
--- NOTE | 2023-07-16 13:59 | OTOPDC ---
Assessment and note entered by WENDY Antonio/Minda, T Discharge Summary 07/16/23 Diagnosis Left proximal humerus fracture Onset 04/26/23 Subjective Information Patient is 11 weeks post left proximal humerus fracture. She has been working diligently on her HEP. Patient is making excellent progress. She is now sleeping in bed, lifting items that are 1-3 lbs, and washing her hair. Reported Pain Level Pain Score 0: Self Report Assessment OT Clinical Summary Patient has been participating in outpatient OT x4 weeks with the focus on increasing functional ROM and strength of the left shoulder. She has made excellent progress with therapy. Shoulder flexion improved to 130, extension to 60, and abduction to 105. ER/IR is symmetrical to the right side. She is currently independent with strengthening HEP and is incorporating the left arm into more ADL tasks. Discharging today with patient independent with HEP. Plan of Care OT Services Indicated No
== END 2023-07-16 15:01 | disposition home or self-care (01) ==
LOC: ANHOT 13:00
PROVIDERS: PCP Family Medicine; Visit Provider Orthopaedic Surgery
DX: S42.202D Unspecified fracture of upper end of left humerus, subsequent encounter for fracture with routine healing (principal)
CPT/HCPCS: 97110; 97140; 97165

== ENCOUNTER 2023-08-29 09:54 | Emergency (ER) | payer MEDICARE, SELFPAY ==
[2023-08-29 10:15] VITALS: BP 170/94; PULSE 93; RESP 18; TEMP 36.1; O2SAT 98
--- NOTE | 2023-08-29 10:49 | ED.FALL ---
HPI - Fall General Chief Complaint: Fall Stated Complaint: Fall/Dizziness Time Seen by Provider: 08/29/23 10:40 Source: patient, family (daughter), RN notes reviewed and old records reviewed Mode of arrival: ambulatory Limitations: no limitations History of Present Illness HPI Narrative: Patient presents today with daughter after a fall around 830 this morning. Patient got dizzy while sitting on the toilet this morning and fell, hitting her head. Denies loss of consciousness. States she is intermittently dizzy x2 weeks, especially with standing. Denies current headache, nausea vomiting, vision changes, neck pain. She also reports a abrasion to the right elbow. Related Data Home Medications Medication Instructions Recorded Confirmed fluticasone propionate 50 1 spray intranasal DAILY PRN 08/10/19 08/29/23 mcg/actuation nasal Allergy Symptoms spray,suspension (Allergy Relief (fluticasone)) losartan 50 mg tablet 50 mg PO DAILY 08/10/19 08/29/23 nebivolol 20 mg tablet (Bystolic) 20 mg PO DAILY 08/10/19 08/29/23 cranberry 500 mg capsule 400 mg PO BID 03/07/20 08/29/23 docusate sodium 100 mg capsule 100 mg PO BID 03/07/20 08/29/23 (Stool Softener) multivitamin 1 tablet PO DAILY 03/07/20 08/29/23 psyllium husk 3.4 gram/5.4 gram 1 tbsp PO DAILY 03/07/20 08/29/23 oral powder (Metamucil) calcium citrate malate-vitamin D3 200 tablet PO DAILY 04/26/23 08/29/23 500 mg-200 unit tablet carboxymethylcellulose 0.5 1 drp EACH EYE QID PRN Dry Eyes 04/26/23 08/29/23 %-glycerin 0.9 % eye drops (Refresh Relieva) Allergies Allergy/AdvReac Type Severity Reaction Status Date / Time codeine AdvReac Intermediate Dizziness Verified 08/29/23 10:35 epinephrine AdvReac Intermediate Dizziness Verified 08/29/23 10:35 levocetirizine AdvReac Intermediate Dizziness Verified 08/29/23 10:35 levofloxacin AdvReac Intermediate Dizziness Verified 08/29/23 10:35 lidocaine AdvReac Intermediate Dizziness Verified 08/29/23 10:35 miconazole AdvReac Intermediate Dizziness Verified 08/29/23 10:35 nitrofurantoin AdvReac Intermediate Dizziness Verified 08/29/23 10:35 Penicillins AdvReac Intermediate Dizziness Verified 08/29/23 10:35 skin cleanser combination AdvReac Intermediate Dizziness Verified 08/29/23 10:35 no.17 Sulfa (Sulfonamide AdvReac Intermediate Dizziness Verified 08/29/23 10:35 Antibiotics) halex AdvReac Intermediate Dizziness Uncoded 08/29/23 10:35 nalex AdvReac Intermediate Dizziness Uncoded 08/29/23 10:35 Xyzal AdvReac Intermediate Dizziness Uncoded 08/29/23 10:35 Review of Systems Review of Systems: CONSTITUTIONAL: Denies body aches, fever, chills, or sweats. EYES: Denies visual changes, redness, or discharge. ENT: Denies rhinorrhea, congestion, sore throat, or otalgia. CARDIOVASCULAR: Denies chest pain, palpitations, or edema. RESPIRATORY: Denies cough or dyspnea. GASTROINTESTINAL: Denies abdominal pain, nausea, vomiting, or diarrhea. SKIN: + right elbow abrasion MUSCULOSKELETAL: Denies back pain, joint pain, or myalgia. NEUROLOGIC: Denies headache, numbness, tingling, or weakness.+ head injury, dizziness PSYCH: Denies depression or anxiety. [facility] Past Medical History Medical History Anxiety Arthritis Cataracts, bilateral Fracture of proximal end of left humerus (~04/26/23) HTN (hypertension) Hypercholesterolemia Impaired fasting glucose Osteoporosis UTI (urinary tract infection) Surgical History Surgical History H/O: hysterectomy History of appendectomy Hx of cholecystectomy Hx of tonsillectomy Social History Social History Smoking status: Never smoker Second hand tobacco smoke exposure: No Alcohol intake: never Substance use: never Substance use type: does not use Lack of Transportation: No Lack of Food: Ne
== END 2023-08-29 11:06 | disposition short-term general hospital (02) ==
PROVIDERS: Emergency Provider Nurse Practitioner; PCP Family Medicine
DX: R42 Dizziness and giddiness (principal); W19.XXXA Unspecified fall, initial encounter; M19.90 Unspecified osteoarthritis, unspecified site; I10 Essential (primary) hypertension; E78.00 Pure hypercholesterolemia, unspecified; M81.0 Age-related osteoporosis without current pathological fracture; H26.9 Unspecified cataract; F41.9 Anxiety disorder, unspecified
CPT/HCPCS: 99212; G0463

== ENCOUNTER 2023-08-29 11:21 | Observation (INO) | payer MEDICARE, SELFPAY ==
[2023-08-29] VITALS (8 sets, daily range): BP systolic 123–189; BP diastolic 77–115; PULSE 63–87; RESP 16–20; TEMP 36.1–36.9; O2SAT 98–100; BMI 19.0
--- NOTE | ~2023-08-29 | CT_ITS ---
EXAMINATION: CT brain wo con DATE: 08/29/2023 15:17 INDICATION: fall . TECHNIQUE: Computed tomography (CT) of the head was performed without intravenous contrast. The mA wa s adjusted according to patient size. Iterative reconstruction technique was employed. The dose-lengt h product was 529.67 mGy-cm. COMPARISON: 04/26/2023. FINDINGS: No acute intracranial hemorrhage or extra-axial fluid collection. No hydrocephalus, mass, or herniation. No acute ischemic infarct. Unremarkable dural venous sinus attenuation. No acute osseous abnormality. Right parietal scalp contusion/hematoma. The aerated spaces are clear. Mild atrophy and chronic white matter change. Atherosclerotic intracranial calcification. Bilateral l ens replacements. IMPRESSION: No acute intracranial process. Reviewed, dictated and finalized at location K. OSURGERY PHYSICIAN
--- NOTE | ~2023-08-29 | XR_ITS ---
EXAM: XR elbow RT 2V DATE: 08/29/2023 15:23 HISTORY: fall WITH RIGHT ELBOW PAIN . COMPARISON: None available. FINDINGS: Normal mineralization. No definite fracture or dislocation, however there is mild prominen ce of the anterior fat pad which may indicate presence of a small joint effusion. No lytic or blastic lesion. Joint spaces are maintained. No erosion or periosteal change. Soft tissues within normal cai its. IMPRESSION: Possible small joint effusion which can accompany occult radial head fractures in a patie nt of this age. Reviewed, dictated and finalized at location K. ERCIAL REAL ESTATE ATTORNEY IMPRESSION: Possible small joint effusion which can accompany occult radial hea d fractures in a patient of this age.
--- NOTE | ~2023-08-29 | MR_ITS ---
EXAMINATION: MR brain/brain stem wo con DATE: 08/30/2023 11:07 INDICATION: Vertigo. TECHNIQUE: Magnetic resonance imaging (MRI) of the brain and brainstem was performed without intraven ous contrast. COMPARISON: Head CT 08/29/2023 FINDINGS: There are scattered areas of nonspecific increased T2-weighted signal intensity in the cere bral and cerebellar white matter, [place], and deep merritt nuclei. There is no intracranial hemorrhage, ac chris infarction, or abnormal intracranial mass lesion. The ventricles are normal in size. The paranasa l sinuses are clear. There are likely changes of ocular lens replacement surgeries. The mastoid air c ells are normal. IMPRESSION: 1. Extensive nonspecific cerebral and cerebellar white matter disease and disease of the [place] and jaye p merritt nuclei, which likely represents chronic small vessel ischemic disease. Reviewed, dictated and finalized at location A. SALVAGER IMPRESSION: 1. Extensive nonspecific cerebral and cerebellar white matter disease and disea se of the [place] and deep merritt nuclei, which likely represents chronic small vess el ischemic disease.
--- NOTE | ~2023-08-29 | XR_ITS ---
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 RESULT: Lines, tubes, and devices: None. Lungs and pleura: Senescent/emphysematous change. Granulomatous calcification. Cardiomediastinal silhouette: Stable. Other: No acute osseous or upper abdominal finding. IMPRESSION: No acute cardiopulmonary process. Reviewed, dictated and finalized at location K. RAL PLANNING COUNSELOR
--- NOTE | ~2023-08-29 | CT_ITS ---
EXAMINATION: CT cervical spine wo con DATE: 08/29/2023 15:17 INDICATION: fall TECHNIQUE: Computed tomography (CT) of the cervical spine was performed without intravenous contrast. Automated exposure control and iterative reconstruction technique were employed. The dose-length pro duct was 90.65 mGy-cm. COMPARISON: None. FINDINGS: Vertebral Body Alignment: Intact. Stable grade 2 anterolisthesis at C7-T1. Craniocervical and atlantoaxial alignment: Moderate degenerative change. Alignment intact. Osseous structures/fracture: No evidence of a lytic or blastic process in the visualized spine. No e vidence of acute fracture. Multilevel facet and vertebral body fusion. Cervical soft tissues: The paraspinal soft tissues planes are maintained. Degenerative changes: Multilevel severe degenerative disc disease and facet arthropathy. Severe right neural foraminal narrowing at C5-6. No severe central canal narrowing. IMPRESSION: No acute fracture or traumatic malalignment in the cervical spine. Reviewed, dictated and finalized at location K. DE SALES AGENT
--- NOTE | ~2023-08-29 | CT_ITS ---
EXAMINATION: CTA brain carotid DATE: 08/29/2023 17:38 INDICATION: vertigo TECHNIQUE: Computed tomographic angiography (CTA) of the head and neck was performed with 100 mL Omni paque-350 intravenous contrast. Automated exposure control and iterative reconstruction technique wer e employed. The dose-length product was 977.84 mGy-cm. Maximum intensity projection and volume rende red 3D-reconstructions were created by the technologist on a separate workstation. COMPARISON: CT brain, same date. FINDINGS: CTA HEAD: No large vessel occlusion, aneurysm, high flow vascular malformation, nidus or extravasation. Slightl y hypoplastic right P1 segment. Hyperenhancing dural based right frontal mass measuring 11 mm, mild s calloping of the adjacent inner table, likely meningioma. Symmetric parenchymal enhancement. Patent c erebral veins. CTA NECK: Aortic arch and proximal great vessels: Normal arch anatomy. Right common carotid, carotid bifurcation, and internal carotid artery: Minimal calcification at the bifurcation.There is 0% stenosis of the proximal right internal carotid artery relative to normal dis sharmaine artery lumen diameter (NASCET criteria). Left common carotid, carotid bifurcation, and internal carotid artery: Minimal calcification at the b ifurcation.There is 0% stenosis of the proximal left internal carotid artery relative to normal dista l artery lumen diameter (NASCET criteria). Vertebral arteries: No significant plaque or stenosis. Other findings: Enlarged mediastinal lymph nodes. Right upper lobe scar. Right upper lobe granuloma. Subcentimeter thyroid hypodensities that require no additional evaluation at this time. Degenerative changes in the cervical spine. IMPRESSION: No large vessel occlusion. No severe carotid or vertebral artery stenosis. Mediastinal lymphadenopathy. Incidental note of an 11 mm right frontal meningioma. Reviewed, dictated and finalized at location K. IC SPACE ATTENDANT
[2023-08-29 14:02] LABS: Appearance Urine Turbid (Clear); Bacteria Urine 1+ /hpf; Bilirubin Urine Negative (Negative); Blood Urine Negative (Negative); Color Urine Yellow (Yellow); Glucose Urine UA Negative (Negative); Ketones Urine 1+ mg/dL (Negative); Leukocyte Esterase Ur Negative LEU/UL (Negative); Nitrate Urine Negative (Negative); Non Pathogenic Casts 0-2; Protein Urine 1+ mg/dL (Negative); Specific Grav Ur 1.017 (1.001-1.035); Squamous Epithelial Cell Urine Occasional /hpf (Few); Urobilinogen Urine 0.2 mg/dL (<2.0); pH Urine 7.5 (5.0-9.0)
[2023-08-29 14:04] LABS: Add Urine Microscopic? YES
--- NOTE | 2023-08-29 14:42 | ECG_ITS ---
Measurements Intervals [place] Rate: 76 P: 65 MN: 186 QRS: -47 QRSD: 104 T: 58 QT: 425 QTc: 479 Interpretive Statements SINUS RHYTHM WITH OCCASIONAL SUPRAVENTRICULAR PREMATURE COMPLEXES POSSIBLE LEFT ATRIAL ENLARGEMENT [-0.1mV P WAVE IN V1/V2] INCOMPLETE RIGHT BUNDLE BRANCH BLOCK [90+ ms QRS DURATION, TERMINAL R IN V1/V2, 40+ ms S IN I/aVL/V4/V5/V6] LEFT ANTERIOR FASCICULAR BLOCK [QRS AXIS <= -45, QR IN I, RS IN II] COMPARED TO ECG 04/27/2023 10:03:05 NO SIGNFICANT CHANGES Electronically Signed On 08-30-2023 14:45:33 DRAW IN HAND by Cici Bal M.D.
--- NOTE | 2023-08-29 14:43 | ED.FALL ---
HPI - Fall General Chief Complaint: Fall <Chelsea Sarmiento PA-C - Last Filed: 08/29/23 19:57> Stated Complaint: dizziness, fell today, head injury <Chelsea Sarmiento PA-C - Last Filed: 08/29/23 19:57> Time Seen by Provider: 08/29/23 14:05 <Chelsea Sarmiento PA-C - Last Filed: 08/29/23 19:57> History of Present Illness HPI Narrative: 82-year-old female presents with her daughter at bedside for evaluation after a fall that occurred today. Patient states she has had intermittent dizziness for the past 2 weeks. Approximately 1 week ago, she felt dizzy spell occurred while she was on the toilet and fell. She does not know if she hit her head but denies loss of consciousness. She was not re-evaluated at that time. She states today, she felt fine was walking down the hallway, then began to feel dizzy and fell to the ground. She did hit her head and reports with a bump to the right parietal region. She did not lose consciousness. She went to urgent care and was sent to the ED for further evaluation. Patient describes the dizziness as the room spinning. She says it occurs spontaneously and at times goes away within a few minutes. She is unable to identify any aggravating or alleviating factors including quick movements of her head or going from a sitting to standing position. She denies vision changes, chest pain or shortness of breath, syncope, palpitations, headache, back pain, abdominal pain, nausea, vomiting or diarrhea, fever, Focal numbness or weakness. She does report sinus congestion and had neck pain after the fall which has since resolved. She denies extremity injury. She does endorse that she has had dysuria and urinary frequency for the past week and is concerned she has a UTI. to reports with a abrasion over her right elbow with mild pain but has full range of motion. Her tetanus is up-to-date. Bleeding controlled. Patient states she is not currently dizzy. <Chelsea Sarmiento PA-C - Last Filed: 08/29/23 19:57> Related Data Home Medications: Home Medications Medication Instructions Recorded Confirmed fluticasone propionate 50 1 spray intranasal DAILY PRN 08/10/19 08/29/23 mcg/actuation nasal Allergy Symptoms spray,suspension (Allergy Relief (fluticasone)) losartan 50 mg tablet 50 mg PO DAILY 08/10/19 08/29/23 nebivolol 20 mg tablet (Bystolic) 20 mg PO DAILY 08/10/19 08/29/23 cranberry 500 mg capsule 400 mg PO BID 03/07/20 08/29/23 docusate sodium 100 mg capsule 100 mg PO BID 03/07/20 08/29/23 (Stool Softener) multivitamin 1 tablet PO DAILY 03/07/20 08/29/23 psyllium husk 3.4 gram/5.4 gram 1 tbsp PO DAILY 03/07/20 08/29/23 oral powder (Metamucil) calcium citrate malate-vitamin D3 200 tablet PO DAILY 04/26/23 08/29/23 500 mg-200 unit tablet carboxymethylcellulose 0.5 1 drp EACH EYE QID PRN Dry Eyes 04/26/23 08/29/23 %-glycerin 0.9 % eye drops (Refresh Relieva) <Chelsea Sarmiento PA-C - Last Filed: 08/29/23 19:57> Allergies/Adverse Reactions: Allergies Allergy/AdvReac Type Severity Reaction Status Date / Time codeine AdvReac Intermediate Dizziness Verified 08/29/23 20:58 epinephrine AdvReac Intermediate Dizziness Verified 08/29/23 20:58 levocetirizine AdvReac Intermediate Dizziness Verified 08/29/23 20:58 levofloxacin AdvReac Intermediate Dizziness Verified 08/29/23 20:58 lidocaine AdvReac Intermediate Dizziness Verified 08/29/23 20:58 miconazole AdvReac Intermediate Dizziness Verified 08/29/23 20:58 nitrofurantoin AdvReac Intermediate Dizziness Verified 08/29/23 20:58 Penicillins AdvReac Intermediate Dizziness Verified 08/29/23 20:58 skin cleanser combination AdvReac Intermediate Dizziness Verified 08/29/23 20:58 no.17 Sulfa (Sulfonamide AdvReac Intermediate Dizziness Verified 08/29/23 20:58 Antibiotics) halex AdvReac Intermediate Dizziness Uncoded 08/29/23 10:35 nalex AdvReac Intermediate Dizziness Uncoded 08/29/23 10:35 <ESTER Osorio
[2023-08-29 15:40] LABS: Basophils Percent Auto 0.4 % (0.2-1.2); Eosinophils Percent Auto 0.3 % (0-4.4); Hematocrit 49.1 % (37.0-47.0); Hemoglobin 15.9 g/dL (12.0-15.0); Immature Granulocyte Absolute 0.02 K/mm3 (0.00-0.031); Immature Granulocyte Percent A 0.3 % (0-0.5); Lymphocytes Absolute Auto 0.71 K/mm3 (0.9-3.2); Lymphocytes Percent Auto 9.8 % (18.3-44.2); Mean Corpuscular HGB Conc 32.4 g/dl (32-36); Mean Corpuscular Hemoglobin 30.5 pg (26-34); Mean Corpuscular Volume 94.1 fl (80-100); Mean Platelet Volume 10.3 fl (7.4-10.4); Monocytes Absolute Auto 0.4 K/mm3 (0.1-0.6); Neutrophils Absolute Auto 6.1 K/mm3 (1.3-6.7); Neutrophils Percent Auto 84.2 % (45.5-73.1); Platelet Count Result 186 k/mm3 (150-375); Red Blood Count 5.22 M/mm3 (4.2-5.4); Red Cell Distribution Width 13.2 % (11.5-14.5); White Blood Count 7.3 K/mm3 (4.5-10.0)
[2023-08-29 15:48] LABS: Alanine Aminotransferase 19 U/L (6-35); Albumin Level 4.5 g/dL (3.5-5.1); Alkaline Phosphatase 111 U/L (38-126); Anion Gap 6 mmol/L (8-16); Aspartate Amino Transferase 32 U/L (14-36); Bilirubin,Total 0.6 mg/dL (0.2-1.3); Blood Urea Nitrogen 22 mg/dL (7-17); Calcium 9.6 mg/dL (8.4-10.2); Carbon Dioxide 29 mmol/L (22-30); Chloride 105 mmol/L (98-107); Estimated CRCL calculation 40 ml/min; Estimated Glomerular Filt Rate > 60; Glucose 116 mg/dL (65-110); Sodium 140 mmol/L (137-145)
[2023-08-29 15:57] LABS: NT Pro B Type Natriuretic Pept 766 pg/mL (19.9-100)
[2023-08-29] MEDS: MECLIZINE HCL 25 MG TABLET PO (16:05)
[2023-08-29] MEDS: SODIUM CHLORIDE 0.9% IV 1,000 ML 999 ML IV CONT (16:05)
[2023-08-29 16:14] LABS: Influenza A QL RT-PCR Negative (Negative); Influenza B QL RT-PCR Negative (Negative); RSV RNA, RT-PCR Negative (Negative); SARS-CoV-2 RNA PCR Negative (Negative)
[2023-08-29] MEDS: ACETAMINOPHEN 500 MG TABLET 1000 MG PO (17:48)
[2023-08-29 17:57] LABS: Troponin I < 0.012 ng/mL (0.000-0.034)
[2023-08-29] MEDS: ASPIRIN 81 MG CHEWABLE TABLET 324 MG PO (18:31)
--- NOTE | 2023-08-29 19:23 | PC.NURSE ---
Assumed care of pt from KRISTINE Mccarty at this time.
--- NOTE | 2023-08-29 20:35 | ADMGEN ---
This patient, Sushma Berger, was admitted to Medical Room 340-01. Patient/family oriented to hospital policies and general routines including ID bracelet, bed and alarms, visiting hours, pain management, procedures, bathroom and other care routines, personal items, smoking policy, room service/diet, and visiting hours. Information on how to activate the Rapid Response Team has been discussed. Patient/Family are encouraged to report perceived risks to care and to ask questions if they do not understand what they are told or what they should do.
--- NOTE | 2023-08-29 22:08 | PM.IMHP ---
H&P: HPI History of Present Illness Date/Time: 08/29/23 21:00 Chief Complaint: Fall, dizzy. Narrative: This is an 82-year-old female with hypertension and anxiety who presented to the emergency department via private vehicle from home for evaluation with complains of intermittent dizziness and falls. The patient provides the following history. Over the last 2 weeks she has had intermittent episodes of dizziness which occur without pattern. She further qualifies the dizziness as a spinning sensation, as though the room is moving. It can occur at any time, while lying down, seated, or while ambulating. These episodes are brief and resolve without intervention within a few minutes time. She has had 2 falls which she attributes to these episodes. Last week she felt dizzy while on the toilet and fell forward without injury or loss of consciousness. Today she was simply walking down the [place] when the dizziness set in, she lost her balance, and fell down onto the floor striking the right side of her head and right elbow. There was no loss of consciousness. She did sustain an abrasion over the right elbow. She has been attributing the dizziness to possible sinus congestion and she tried to take some Sudafed without benefit. She denies visual changes, tinnitus, aural fullness, decreased hearing, facial droop, difficulty speaking and swallowing, focal weakness, paresthesias, chest pain, palpitations, and sensations of racing heart. In the ED: She was afebrile on arrival. Blood pressures have been persistently in the 170s to 180s systolic. Looking back through her EMR, her blood pressure tends to run quite high however she reports it is only ever that high when she is at the doctor's office and states it is usually in the 130s to 140s systolic when she checks it at home. She is in a normal sinus rhythm and her EKG shows occasional ectopy, incomplete right bundle-branch block, and left anterior fascicular block without acute ST segment changes. CTA of the head and neck showed no large vessel occlusion, no severe carotid or vertebral artery stenosis, and an incidental 11 mm right frontal meningioma. She is being admitted in this setting for further evaluation. Review of Systems Review of Systems: Twelve systems were reviewed. She endorses urinary frequency, urgency, and some hesitancy. Denies dysuria. No fever, chills, or sweats. No cold or flu symptoms. Denies lower extremity edema. No calf pain or tenderness. Except as documented, all other systems were reviewed and are negative. [facility] Past Medical History Medical History (Updated 08/29/23 @ 23:02 by Sandy Bhat PA-C) Anxiety Arthritis Fracture of proximal end of left humerus (04/26/23) Hypercholesterolemia Hypertension Impaired fasting glucose Osteoporosis Surgical History Surgical History (Updated 08/29/23 @ 22:48 by Sandy Bhat PA-C) History of appendectomy History of bilateral cataract extraction History of cholecystectomy History of hysterectomy History of tonsillectomy Family History Family History Father Leukemia Mother CHF (congestive heart failure) Social History Social History Social History: Surrogate medical decision maker: Liu (spouse) or Tracy (daughter) Celine. Code status: Full code. Smoking status: Never smoker Second hand tobacco smoke exposure: No Alcohol intake: never Substance use: never Substance use type: does not use Do You Feel Safe in your Home?: Yes Lack of Transportation: No Lack of Food: Never True Current Housing: I Have Housing Concerned About Future Housing: No Difficulty Paying Gas/Electric Bills: No Difficulty Paying for Meds: No Currently Unemployed: No Education: Bachelor's Degree Difficulty w/ Childcare or Family Care: No Living arrangements: with family Additional living arrang
[2023-08-30] VITALS (12 sets, daily range): BP systolic 120–172; BP diastolic 76–92; PULSE 51–92; RESP 18–20; TEMP 36.1–36.9; O2SAT 97–99
[2023-08-30 05:54] LABS: Hematocrit 45.6 % (37.0-47.0); Hemoglobin 14.7 g/dL (12.0-15.0); Mean Corpuscular HGB Conc 32.2 g/dl (32-36); Mean Corpuscular Hemoglobin 30.8 pg (26-34); Mean Corpuscular Volume 95.4 fl (80-100); Mean Platelet Volume 10.7 fl (7.4-10.4); Platelet Count Result 178 k/mm3 (150-375); Red Blood Count 4.78 M/mm3 (4.2-5.4); Red Cell Distribution Width 13.2 % (11.5-14.5); White Blood Count 5.5 K/mm3 (4.5-10.0)
[2023-08-30 06:18] LABS: Anion Gap 7 mmol/L (8-16); Blood Urea Nitrogen 19 mg/dL (7-17); Carbon Dioxide 26 mmol/L (22-30); Chloride 108 mmol/L (98-107); Cholesterol 191 mg/dL (0-200); Estimated CRCL calculation 44 ml/min; Estimated Glomerular Filt Rate > 60; Glucose 86 mg/dL (65-110); HDL Direct 62 mg/dL; Magnesium 2.4 mg/dL (1.6-2.3); Potassium 3.5 mmol/L (3.4-5.0); Sodium 141 mmol/L (137-145); Triglycerides 69 mg/dL (<150)
[2023-08-30 06:28] LABS: LDL Cholesterol Direct 89 mg/dL
[2023-08-30] MEDS: LOSARTAN POTASSIUM 50 MG TABLET PO (08:29)
[2023-08-30] MEDS: NEBIVOLOL HCL 5 MG TABLET 20 MG PO (08:29)
[2023-08-30] MEDS: DOCUSATE SODIUM 100 MG CAPSULE PO ×2 (08:29→17:07)
[2023-08-30] MEDS: busPIRone HCL 10 MG TABLET PO (08:29)
[2023-08-30] MEDS: MULTIVITAMINS THERAPEUTIC TAB (*BKC) 1 TABLET PO (08:29)
--- NOTE | 2023-08-30 08:48 | PM.IMPN ---
Progress Note: A&P Assessment and Plan (1) Vertigo: Code(s): R42 - Dizziness and giddiness Status: Acute Assessment and Plan: 08/29/23: Patient reports intermittent episodes of vertigo the last 2 weeks as detailed in HPI. Consider related to bilateral cerumen impaction, BPPV (unlikely given frequency), CVA versus other. Meclizine 25 mg given in the ED was without benefit. Brain MRI ordered to rule out CVA. 08/30/23: Denies at this time MRI showing age-related changes only no acute intracranial process PT and OT ordered Will get echo to rule out any cardiac process Orthostatic blood pressures normal Head and neck CTA was negative for occlusion or stenosis Urine culture is pending however UA was in significant Patient denies any blurred vision or double vision, headache. EOMs intact, coordination intact. Patient denies any seizure like activity. (2) Fall: Qualifiers: Encounter type: initial encounter Qualified Code(s): W19.XXXA - Unspecified fall, initial encounter Code(s): W19.XXXA - Unspecified fall, initial encounter Status: Inactive Assessment and Plan: 08/29/23: Patient has had 2 falls in the last 2 weeks related to the above. PT/OT has been consulted. Initiate fall precautions; patient ambulate with assistance only. 08/30/23: Continue PT and OT Continue fall precaution (3) Meningioma: Code(s): D32.9 - Benign neoplasm of meninges, unspecified Status: Acute Assessment and Plan: 08/29/23: Incidental 11 mm right frontal meningioma noted on brain CT. 08/30/23: Of note, likely benign (4) Hypertension: Code(s): I10 - Essential (primary) hypertension Status: Acute Assessment and Plan: 08/29/23: Blood pressures have been running consistently in the 170s to 190s systolic. Patient states she has white coat hypertension and blood pressures at home are in the 130s to 140s. Continue losartan 50 mg daily and nebivolol 20 mg daily. May need adjustments in medications depending on how she trends. 08/30/23: Blood pressures ranging 125/76 to 172/92 Home medications restarted Will adjust medication as necessary (5) Bilateral impacted cerumen: Code(s): H61.23 - Impacted cerumen, bilateral Status: Acute Assessment and Plan: 08/29/23: Debrox solution orders for both ears to loosen lack so they may be cleaned out in a couple of days. 08/30/23: Continue with Debrox solution for now Consider ENT evaluation if too impacted (6) Abnormal urinalysis: Code(s): R82.90 - Unspecified abnormal findings in urine Status: Acute Assessment and Plan: 08/29/23: Patient endorses urgency, hesitancy, and frequency. Bladder feels a bit enlarged; check pre and postvoid residual. Hold antibiotics for now pending urine culture as she is afebrile with normal WBC count. 08/30/23: UA showing 1+ protein, 1+ ketones, 1+ bacteria, urine RBC's 3-5, urine WBC's 6-10. Urine cultures pending Continue to hold antibiotics for now (7) Anxiety: Code(s): F41.9 - Anxiety disorder, unspecified Status: Acute Assessment and Plan: 08/29/23: Continue alprazolam and buspirone. 08/30/23: Continue with current treatment plan Time Spent With Patient Time with patient: 25 - 35 minutes Subjective Date/time seen: 08/30/23 08:48 Interval history: This is an 82 year old female who presented to the hospital on 08/29/23 with complaints of intermittent dizziness and falls. She reports sinus congestion and tried Sudafed without helping. Work up in the hospital included a head CT which was negative for any acute intracranial process CT of cervical spine was negative for any acute fracture. CXR was negative for any acute cardiopulmonary process. Right elbow x-ray showing small joint effusion. Head and neck CTA was negative for large vessel occlusion or stenosis, incidental finding o
[2023-08-30] MEDS: CARBAMIDE PEROXIDE 6.5% OT SOLN 15 ML BTL 5 DROP EACH EAR ×2 (14:03→18:51)
[2023-08-31] VITALS (12 sets, daily range): BP systolic 150–179; BP diastolic 85–98; PULSE 50–99; RESP 18–20; TEMP 36.3–36.8; O2SAT 97–99
--- NOTE | 2023-08-31 | ECHO_ITS ---
Patient Info Name: Sushma Berger Age: 82 years : 1940 Gender: Female Ht: 64 in Wt: 106 lbs BSA: 1.47 m2 HR: 50 bpm BP: 155 / 89 mmHg Heart Rhythm: Sinus Rhythm Technical Quality: Good Exam Date: 08/31/2023 10:28 AM Exam Location: Echo Lab Patient Status: Outpatient Admit Date: 08/29/2023 Staff Ordering Physician: Randa Mccrary APRN Marker Hand: Tifafnie Kilpatrick RDCS Attending Provider: Linda Alaniz DO Referring Physician: Demetra BERRY; Exam Type: CA echo doppler color flow Study Info Indications - dizziness Complete two-dimensional, color flow and Doppler transthoracic echocardiogram is performed. Summary 1. Complete two-dimensional, color flow and Doppler transthoracic echocardiogram is performed. 2. Left ventricular chamber dimension is normal. 3. Left ventricular systolic function is normal, estimated at >70%. 4. There is moderately increased left ventricular wall thickness. 5. The left ventricular diastolic function is grade I diastolic dysfunction. 6. Right ventricular systolic function is normal. 7. There is mild aortic valve regurgitation. 8. There is mild tricuspid valve regurgitation. 9. There is mild pulmonic regurgitation. Left Ventricle Left ventricular chamber dimension is normal. Left ventricular systolic function is normal, estimated at >70%. There is moderately increased left ventricular wall thickness. Left ventricular septal wall motion is abnormal with septal motion related to bundle branch block. The left ventricular diastolic function is grade I diastolic dysfunction. Right Ventricle Right ventricular chamber dimension is normal. Right ventricular systolic function is normal. Left Atria Left atrial chamber dimension is normal. Right Atria Right atrial chamber dimension is normal. Atrial Septum Intact interatrial septum visualized by color flow imaging. Aortic Valve The aortic valve is probable trileaflet. There is no aortic valve stenosis. There is mild aortic valve regurgitation. There is moderate aortic valve calcification. Pulmonic Valve The pulmonic valve is not well visualized. There is mild pulmonic regurgitation. Mitral Valve The mitral valve has thickened leaflets. There is trace mitral valve regurgitation. The mitral valve annulus is mildly calcified. Tricuspid Valve There is mild tricuspid valve regurgitation. Pericardium/Pleural There is no pericardial effusion. Inferior Vena Cava Normal inferior vena cava with >50% collapse upon inspiration consistent with normal right atrial pressure, 3 mmHg. Aorta The aortic root size at the sinus of Valsalva is normal. Left Ventricular Outflow Tract Name Value Normal LVOT 2D LVOT Diameter 1.8 cm LVOT Doppler LVOT Peak Gradient 5 mmHg LVOT Mean Gradient 2 mmHg LVOT VTI 23 cm LVOT VTI/AV VTI Ratio 0.9 LVOT Stroke Volume 60 ml LVOT CO 2.9 l/min LVOT CI 2.0 l/min/m2 Pulmonic Valve Na
[2023-08-31] MEDS: NEBIVOLOL HCL 5 MG TABLET 20 MG PO (08:21)
[2023-08-31] MEDS: busPIRone HCL 10 MG TABLET PO (08:21)
[2023-08-31] MEDS: ALPRAZolam (*CRX) 0.25 MG TABLET PO (08:21)
[2023-08-31] MEDS: LOSARTAN POTASSIUM 50 MG TABLET PO (08:21)
[2023-08-31] MEDS: DOCUSATE SODIUM 100 MG CAPSULE PO (08:22)
[2023-08-31] MEDS: MULTIVITAMINS THERAPEUTIC TAB (*BKC) 1 TABLET PO (08:22)
[2023-08-31 09:11] LABS: Basophils Absolute Auto 0.1 K/mm3 (0.0-0.1); Basophils Percent Auto 0.8 % (0.2-1.2); Eosinophils Absolute Auto 0.2 K/mm3 (0-0.3); Eosinophils Percent Auto 2.4 % (0-4.4); Hematocrit 47.3 % (37.0-47.0); Immature Granulocyte Absolute 0.01 K/mm3 (0.00-0.031); Immature Granulocyte Percent A 0.2 % (0-0.5); Lymphocytes Absolute Auto 1.34 K/mm3 (0.9-3.2); Lymphocytes Percent Auto 21.6 % (18.3-44.2); Mean Corpuscular HGB Conc 33.8 g/dl (32-36); Mean Corpuscular Hemoglobin 31.5 pg (26-34); Mean Corpuscular Volume 93.1 fl (80-100); Mean Platelet Volume 9.9 fl (7.4-10.4); Monocytes Absolute Auto 0.4 K/mm3 (0.1-0.6); Monocytes Percent Auto 5.8 % (2.6-8.5); Neutrophils Absolute Auto 4.3 K/mm3 (1.3-6.7); Neutrophils Percent Auto 69.2 % (45.5-73.1); Platelet Count Result 170 k/mm3 (150-375); Red Blood Count 5.08 M/mm3 (4.2-5.4); Red Cell Distribution Width 13.2 % (11.5-14.5); White Blood Count 6.2 K/mm3 (4.5-10.0)
[2023-08-31 09:23] LABS: Alanine Aminotransferase 18 U/L (6-35); Albumin Level 4.3 g/dL (3.5-5.1); Alkaline Phosphatase 109 U/L (38-126); Anion Gap 10 mmol/L (8-16); Aspartate Amino Transferase 30 U/L (14-36); Bilirubin,Total 0.7 mg/dL (0.2-1.3); Blood Urea Nitrogen 20 mg/dL (7-17); Calcium 9.2 mg/dL (8.4-10.2); Carbon Dioxide 25 mmol/L (22-30); Chloride 107 mmol/L (98-107); Estimated CRCL calculation 40 ml/min; Estimated Glomerular Filt Rate > 60; Glucose 106 mg/dL (65-110); Potassium 3.6 mmol/L (3.4-5.0); Sodium 142 mmol/L (137-145)
[2023-08-31] MEDS: CARBAMIDE PEROXIDE 6.5% OT SOLN 15 ML BTL 5 DROP EACH EAR (13:45)
--- NOTE | 2023-08-31 16:32 | P.PNIM_ITS ---
Progress Note: A&P Assessment and Plan (1) Vertigo: Code(s): R42 - Dizziness and giddiness Status: Acute Assessment and Plan: 08/29/23: Patient reports intermittent episodes of vertigo the last 2 weeks as detailed in HPI. Consider related to bilateral cerumen impaction, BPPV (unlikely given frequency), CVA versus other. Meclizine 25 mg given in the ED was without benefit. Brain MRI ordered to rule out CVA. 08/30/23: * Denies at this time * MRI showing age-related changes only no acute intracranial process * PT and OT ordered * Will get echo to rule out any cardiac process * Orthostatic blood pressures normal * Head and neck CTA was negative for occlusion or stenosis * Urine culture is pending however UA was in significant * Patient denies any blurred vision or double vision, headache. EOMs intact, coordination intact. Patient denies any seizure like activity. 08/31/23: * Echo showing normal LV and RV systolic function with EF greater than 70%, grade 1 diastolic dysfunction * Dizziness is likely to cerumen impaction, Vertigo. Will need to follow up with ENT * Brain MRI only showing age related changes. (2) Fall: Qualifiers: Encounter type: initial encounter Qualified Code(s): W19.XXXA - Unspecified fall, initial encounter Code(s): W19.XXXA - Unspecified fall, initial encounter Status: Inactive Assessment and Plan: 08/29/23: Patient has had 2 falls in the last 2 weeks related to the above. PT/OT has been consulted. Initiate fall precautions; patient ambulate with assistance only. 08/30/23: * Continue PT and OT * Continue fall precaution 08/31/23: * no change to current treatment plan (3) Meningioma: Code(s): D32.9 - Benign neoplasm of meninges, unspecified Status: Acute Assessment and Plan: 08/29/23: Incidental 11 mm right frontal meningioma noted on brain CT. 08/30/23: * Of note, likely benign (4) Hypertension: Code(s): I10 - Essential (primary) hypertension Status: Acute Assessment and Plan: 08/29/23: Blood pressures have been running consistently in the 170s to 190s systolic. Patient states she has white coat hypertension and blood pressures at home are in the 130s to 140s. Continue losartan 50 mg daily and nebivolol 20 mg daily. May need adjustments in medications depending on how she trends. 08/30/23: * Blood pressures ranging 125/76 to 172/92 * Home medications restarted * Will adjust medication as necessary 08/31/23: * B/P ranging 167/96-176/87 * Continue with home meds, will add hydralazine for better blood pressure control. (5) Bilateral impacted cerumen: Code(s): H61.23 - Impacted cerumen, bilateral Status: Acute Assessment and Plan: 08/29/23: Debrox solution orders for both ears to loosen lack so they may be cleaned out in a couple of days. 08/30/23: * Continue with Debrox solution for now * Consider ENT evaluation if too impacted 08/31/23: * No change to current treatment plan * (6) Abnormal urinalysis: Code(s): R82.90 - Unspecified abnormal findings in urine Status: Acute Assessment and Plan: 08/29/23: Patient endorses urgency, hesitancy, and frequency. Bladder feels a bit enlarged; check pre and postvoid residual. Hold antibiotics for now pending urine culture as she is afebrile with normal WBC count. 08/30/23: * UA showing 1+ protein, 1+ ketones, 1+ bacteria, urine RBC's 3-5, urine WB
--- NOTE | 2023-08-31 16:32 | PM.IMPN ---
Progress Note: A&P Assessment and Plan (1) Vertigo: Code(s): R42 - Dizziness and giddiness Status: Acute Assessment and Plan: 08/29/23: Patient reports intermittent episodes of vertigo the last 2 weeks as detailed in HPI. Consider related to bilateral cerumen impaction, BPPV (unlikely given frequency), CVA versus other. Meclizine 25 mg given in the ED was without benefit. Brain MRI ordered to rule out CVA. 08/30/23: Denies at this time MRI showing age-related changes only no acute intracranial process PT and OT ordered Will get echo to rule out any cardiac process Orthostatic blood pressures normal Head and neck CTA was negative for occlusion or stenosis Urine culture is pending however UA was in significant Patient denies any blurred vision or double vision, headache. EOMs intact, coordination intact. Patient denies any seizure like activity. 08/31/23: Echo showing normal LV and RV systolic function with EF greater than 70%, grade 1 diastolic dysfunction Dizziness is likely to cerumen impaction, Vertigo. Will need to follow up with ENT Brain MRI only showing age related changes. (2) Fall: Qualifiers: Encounter type: initial encounter Qualified Code(s): W19.XXXA - Unspecified fall, initial encounter Code(s): W19.XXXA - Unspecified fall, initial encounter Status: Inactive Assessment and Plan: 08/29/23: Patient has had 2 falls in the last 2 weeks related to the above. PT/OT has been consulted. Initiate fall precautions; patient ambulate with assistance only. 08/30/23: Continue PT and OT Continue fall precaution 08/31/23: no change to current treatment plan (3) Meningioma: Code(s): D32.9 - Benign neoplasm of meninges, unspecified Status: Acute Assessment and Plan: 08/29/23: Incidental 11 mm right frontal meningioma noted on brain CT. 08/30/23: Of note, likely benign (4) Hypertension: Code(s): I10 - Essential (primary) hypertension Status: Acute Assessment and Plan: 08/29/23: Blood pressures have been running consistently in the 170s to 190s systolic. Patient states she has white coat hypertension and blood pressures at home are in the 130s to 140s. Continue losartan 50 mg daily and nebivolol 20 mg daily. May need adjustments in medications depending on how she trends. 08/30/23: Blood pressures ranging 125/76 to 172/92 Home medications restarted Will adjust medication as necessary 08/31/23: B/P ranging 167/96-176/87 Continue with home meds, will add hydralazine for better blood pressure control. (5) Bilateral impacted cerumen: Code(s): H61.23 - Impacted cerumen, bilateral Status: Acute Assessment and Plan: 08/29/23: Debrox solution orders for both ears to loosen lack so they may be cleaned out in a couple of days. 08/30/23: Continue with Debrox solution for now Consider ENT evaluation if too impacted 08/31/23: No change to current treatment plan (6) Abnormal urinalysis: Code(s): R82.90 - Unspecified abnormal findings in urine Status: Acute Assessment and Plan: 08/29/23: Patient endorses urgency, hesitancy, and frequency. Bladder feels a bit enlarged; check pre and postvoid residual. Hold antibiotics for now pending urine culture as she is afebrile with normal WBC count. 08/30/23: UA showing 1+ protein, 1+ ketones, 1+ bacteria, urine RBC's 3-5, urine WBC's 6-10. Urine cultures pending Continue to hold antibiotics for now 08/31/23: Urine culture showing only mixed genital mariano, otherwise negative culture on final read, no antibiotics warrented. (7) Anxiety: Code(s): F41.9 - Anxiety disorder, unspecified Status: Acute Assessment and Plan: 08/29/23: Continue alprazolam and buspirone. 08/30/23: Continue with current treatment plan Time Spent With Patient Time with patient: Greater than 35 minutes Sub
--- NOTE | 2023-08-31 18:06 | PM.DS ---
DS: Admitting Diagnosis Discharge Date 08/31/23 Admitting Diagnosis Vertigo fall dizziness bilateral impacted cerumen abnormal urinalysis hypertension anxiety meningioma DS: Discharge Diagnosis Discharge Diagnosis (1) Vertigo: Code(s): R42 - Dizziness and giddiness Status: Acute (2) Fall: Qualifiers: Encounter type: initial encounter Qualified Code(s): W19.XXXA - Unspecified fall, initial encounter Code(s): W19.XXXA - Unspecified fall, initial encounter Status: Inactive (3) Meningioma: Code(s): D32.9 - Benign neoplasm of meninges, unspecified Status: Acute (4) Hypertension: Code(s): I10 - Essential (primary) hypertension Status: Acute (5) Bilateral impacted cerumen: Code(s): H61.23 - Impacted cerumen, bilateral Status: Acute (6) Abnormal urinalysis: Code(s): R82.90 - Unspecified abnormal findings in urine Status: Acute (7) Anxiety: Code(s): F41.9 - Anxiety disorder, unspecified Status: Acute DS: Summary Hospital Course Reason for hospitalization: Fall Vertigo Impacted cerumen abnormal urinalysis Hospital Course: This is an 82 year old female who presented to the hospital on 08/29/23 with complaints of intermittent dizziness and falls. She reports sinus congestion and tried Sudafed without helping. Work up in the hospital included a head CT which was negative for any acute intracranial process CT of cervical spine was negative for any acute fracture. CXR was negative for any acute cardiopulmonary process. Right elbow x-ray showing small joint effusion. Head and neck CTA was negative for large vessel occlusion or stenosis, incidental finding of 11 mm right frontal meningioma and mediastinal lymphadenopathy. EKG shown NSR with RBBB with rate of 76. MRI was negative for any acute abnormality, shown age related changes. Echo was performed and shown normal LV systolic function with an EF of >70%, normal RV systolic function, grade 1 diastolic dysfunction. Urine culture was negative. On examination today patient is alert and oriented x3, lying in the bed. She denies any lightheadedness or dizziness today. I did look in her ears today with an otoscope and seen that she had hard wax build up in both ears. Labs today were unremarkable. She is stable for discharge. I discussed that she will need to see an ENT on an outpatient basis for wax removal. She will be continued on Debrox and a prescription was called in. I gave her Dr. Sharp's information for follow up. She will also need to follow up with PCP in 1 week. Final diagnosis: Vertigo, Fall, impacted cerumen bilateral ears. Status at Discharge Cognitive/behavioral status at discharge: Alert and oriented x3 Functional status at discharge: independent ambulation Overall status at discharge: patient is progressing back to baseline Time Spent with Patient Time attestation: Total time spent providing and/or coordinating discharge services: Time spent: Greater than 30 minutes Exam Narrative: General: In no acute distress, well nourished Head: atraumatic, no encephalopathy Eyes: EOMI, PERRLA, sclera clear ENT: moist mucous membranes, nasal passages clear, bilateral ears full of hard wax, cannot see tympanic membrane. Neck: supple, no JVD, no adenopathy, trachea midline Cardiac: Normal S1 and S2. No murmur, gallops or friction rubs, peripheral pulses intact. Respiratory: Lungs clear to auscultation, no adventitious lung sounds Gastrointestinal: soft, non-distended, non-tender, normoactive bowel sounds. : voiding without difficulty. Extremities: moves all extremities well, no edema, good ROM, strength 5/5 Skin: clean, dry, intact. No wounds or lesions. Neuro: Alert and oriented x4, cranial nerves intact, no neuro deficits. Denies any lightheadedness, dizziness Psych: normal mood, normal affect, interactive DS: Data Data Completed and Pending Completed studies during
== END 2023-08-31 18:25 | disposition home or self-care (01) ==
LOC: ANHED 19:08 → ANH3MED 20:11
PROVIDERS: Emergency Medicine; Nurse Practitioner Acute Care; Physician Assistant; Admitting Provider Student in an Organized Health Care Education/Training Program; Emergency Provider Physician Assistant; PCP Family Medicine; Visit Provider Student in an Organized Health Care Education/Training Program
DX: R42 Dizziness and giddiness (principal); S50.311A Abrasion of right elbow, initial encounter; W18.30XA Fall on same level, unspecified, initial encounter; D32.9 Benign neoplasm of meninges, unspecified; I45.2 Bifascicular block; I89.0 Lymphedema, not elsewhere classified; I10 Essential (primary) hypertension; H61.23 Impacted cerumen, bilateral; R82.90 Unspecified abnormal findings in urine; F41.9 Anxiety disorder, unspecified; Z20.822 Contact with and (suspected) exposure to COVID-19; I08.3 Combined rheumatic disorders of mitral, aortic and tricuspid valves; E78.00 Pure hypercholesterolemia, unspecified; R73.01 Impaired fasting glucose; M81.0 Age-related osteoporosis without current pathological fracture; Z79.899 Other long term (current) drug therapy
CPT/HCPCS: 36415; 70450; 70496; 70498; 70551; 71045; 72125; 73070; 80048; 80053; 80061; 81001; 83735; 83880; 84484; 85025; 85027; 87086; 87088; 87637; 93005; 93306; 96360; 96361; 97161; 97165; 99285; A9270; G0378; J7030; Q9967

== ENCOUNTER 2024-01-29 09:36 | Outpatient (CLI) | payer MEDICARE, SELFPAY ==
[2024-01-29 10:32] LABS: Hematocrit 46.5 % (37.0-47.0); Hemoglobin 15.4 g/dL (12.0-15.0); Mean Corpuscular HGB Conc 33.1 g/dl (32-36); Mean Corpuscular Hemoglobin 30.9 pg (26-34); Mean Corpuscular Volume 93.4 fl (80-100); Mean Platelet Volume 10.2 fl (7.4-10.4); Platelet Count Result 162 k/mm3 (150-375); Red Blood Count 4.98 M/mm3 (4.2-5.4); Red Cell Distribution Width 14.4 % (11.5-14.5); White Blood Count 4.1 K/mm3 (4.5-10.0)
[2024-01-29 10:58] LABS: Alanine Aminotransferase 22 U/L (6-35); Albumin Level 4.5 g/dL (3.5-5.1); Alkaline Phosphatase 99 U/L (38-126); Anion Gap 6 mmol/L (4-12); Aspartate Amino Transferase 37 U/L (14-36); Blood Urea Nitrogen 22 mg/dL (7-17); Calcium 9.6 mg/dL (8.4-10.2); Carbon Dioxide 30 mmol/L (22-30); Chloride 105 mmol/L (98-107); Estimated Glomerular Filt Rate > 60; Glucose 103 mg/dL (65-110); Potassium 3.9 mmol/L (3.4-5.0); Sodium 141 mmol/L (137-145)
[2024-01-29 11:15] LABS: Hemoglobin A1C 5.4 % (<5.7)
== END 2024-01-29 09:37 | disposition home or self-care (01) ==
PROVIDERS: PCP Family Medicine; Visit Provider Family Medicine
DX: R73.01 Impaired fasting glucose (principal); I10 Essential (primary) hypertension
CPT/HCPCS: 36415; 80053; 83036; 84443; 85027

== ENCOUNTER 2024-05-02 10:49 | Inpatient (IN) | payer MEDICARE, SELFPAY ==
[2024-05-02] VITALS (19 sets, daily range): BP systolic 103–133; BP diastolic 54–75; PULSE 62–81; RESP 13–20; TEMP 36.6–37.2; O2SAT 96–99; BMI 18.8
--- NOTE | ~2024-05-02 | XR_ITS ---
Clinical Indication: Syncope AP and lateral views of the chest Comparison: 08/29/2023 Findings: The lungs are clear, without evidence of focal consolidation or pleural effusion. Cardiome diastinal silhouette is within normal limits. Bones and soft tissues are unremarkable. Impression: Normal chest. [place]ed[place] [facility] [place]ression: Normal chest.
--- NOTE | ~2024-05-02 | CT_ITS ---
. CT head without contrast Indication: Status post fall COMPARISON: 08/29/2023 Technique: Serial scans were obtained through the brain without the administration of contrast. Dose reduction technique was used on this scan by utilizing automated exposure control and iterative recon struction technique. The dose-length product (DLP) was 605.33 mGy-cm. Findings: There is no evidence of intracranial hemorrhage, mass lesion, or acute infarct. The ventri cles and subarachnoid spaces are dilated, consistent with mild atrophy. Low attenuation regions are seen within the periventricular white matter bilaterally, likely representing changes from chronic mi crovascular ischemic disease. There is no evidence of edema, mass effect or midline shift. The visu alized paranasal sinuses and mastoid air cells are clear. Impression: No intracranial hemorrhage, mass, or acute infarct. Atrophy and chronic white matter changes, as above. Reviewed, dictated and finalized at [facility]. Impression: No intracranial hemorrhage, mass, or acute infarct. Atrophy and chronic white matter changes, as above.
--- NOTE | ~2024-05-02 | US_ITS ---
EXAMINATION:US venous doppler LE BI INDICATION:Elevated d-dimer TECHNIQUE: Multiple grayscale, color flow and Doppler images of the right and left lower extremity de ep venous systems were obtained and reviewed. COMPARISON:No prior studies for comparison. FINDINGS: The common femoral, superficial femoral and popliteal veins demonstrate normal respiratory variation, augmentation and compressibility. Color flow is also seen within the posterior tibial, pe roneal, greater saphenous and profunda veins. IMPRESSION: 1: No lower extremity deep venous thrombosis. Reviewed, dictated and finalized at location B.
--- NOTE | ~2024-05-02 | CT_ITS ---
Clinical Indication: Syncope, elevated d-dimer CT Scan of the Chest with Contrast: Technique: Contiguous sections were acquired throughout the chest after intravenous administration of 100 cc of Omnipaque 350. Dose reduction technique was used on this scan by utilizing automated expos ure control and iterative reconstruction technique. The dose-length product (DLP) was 265.89 mGy-cm. Findings: There is no evidence of any significant mediastinal, hilar or axillary lymphadenopathy. There is no f illing defect in the pulmonary arterial tree to suggest pulmonary embolus. There is no evidence of ao rtic dissection or aneurysm. There is no evidence of pleural or pericardial effusion. Calcified right upper lobe granulomas are present. There is linear scarring or atelectasis at the inf erior right middle lobe and inferior left lower lobe. Images through the upper abdomen reveal no abnormalities. Impression: No evidence of pulmonary embolus, aortic dissection, or aortic aneurysm. Bibasilar pulmonary scarring or atelectasis, as above. Reviewed, dictated and finalized at [facility]. Impression: No evidence of pulmonary embolus, aortic dissection, or aortic aneurysm. Bibasilar pulmonary scarring or atelectasis, as above.
--- NOTE | ~2024-05-02 | US_ITS ---
EXAMINATION: US abdomen limited DATE: 05/03/2024 15:14 INDICATION: Abnormal liver function tests. TECHNIQUE: Multiple grayscale and Doppler ultrasound images of the abdomen were obtained. COMPARISON: Ultrasound 05/12/2018, chest CT 05/02/2024 FINDINGS: The visualized portions of the head, body, and tail of the pancreas are normal. Abdominal a hilary is normal in caliber. The liver is normal without focal lesion. There is normal flow in main por sharmaine vein. The gallbladder is absent. The common duct is normal and measures 6 mm. IMPRESSION: 1. Normal right upper quadrant ultrasound status post cholecystectomy. Reviewed, dictated and finalized at location A.
--- NOTE | ~2024-05-02 | XR_ITS ---
EXAMINATION: XR elbow RT 2V DATE: 05/03/2024 15:14 INDICATION: Right elbow pain post fall TECHNIQUE: Anteroposterior and lateral views of the right elbow were obtained. COMPARISON: None. FINDINGS: Alignment is normal. No fracture. Mild osteoarthritis. No elbow joint effusion. Soft tissues are unre markable. IMPRESSION: 1. Mild osteoarthritis at the right elbow. No elbow joint effusion or acute osseous abnormality. Reviewed, dictated and finalized at location A. IMPRESSION: 1. Mild osteoarthritis at the right elbow. No elbow joint effusion or acute oss eous abnormality.
--- NOTE | 2024-05-02 10:55 | ECG_ITS ---
Test Date: 2024-05-02 10:58:47 Measurements Intervals [place] Rate: 74 P: 235 WV: 111 QRS: -48 QRSD: 98 T: 23 QT: 425 QTc: 474 Interpretive Statements ECTOPIC ATRIAL RHYTHM WITH SHORT WV INTERVAL INCOMPLETE RIGHT BUNDLE BRANCH BLOCK LEFT ANTERIOR FASCICULAR BLOCK BASELINE ARTIFACT- I, III, AVL, V5 ABNORMAL ECG No previous ECG available for comparison Electronically Signed On 05-02-2024 17:29:52 CDT by Hussain Redman D.O.
[2024-05-02 11:16] LABS: Basophils Absolute Auto 0.1 K/mm3 (0.0-0.1); Basophils Percent Auto 0.5 % (0.2-1.2); Eosinophils Absolute Auto 2.8 K/mm3 (0-0.3); Eosinophils Percent Auto 15.1 % (0-4.4); Hematocrit 43.6 % (37.0-47.0); Hemoglobin 14.6 g/dL (12.0-15.0); Immature Granulocyte Absolute 0.18 K/mm3 (0.00-0.031); Lymphocytes Absolute Auto 0.28 K/mm3 (0.9-3.2); Lymphocytes Percent Auto 1.5 % (18.3-44.2); Mean Corpuscular HGB Conc 33.5 g/dl (32-36); Mean Corpuscular Hemoglobin 31.5 pg (26-34); Mean Corpuscular Volume 94.2 fl (80-100); Mean Platelet Volume 11.2 fl (7.4-10.4); Monocytes Absolute Auto 0.6 K/mm3 (0.1-0.6); Monocytes Percent Auto 3.3 % (2.6-8.5); Neutrophils Absolute Auto 14.6 K/mm3 (1.3-6.7); Neutrophils Percent Auto 78.6 % (45.5-73.1); Platelet Count Result 110 k/mm3 (150-375); Red Blood Count 4.63 M/mm3 (4.2-5.4); Red Cell Distribution Width 14.5 % (11.5-14.5); White Blood Count 18.6 K/mm3 (4.5-10.0)
[2024-05-02 11:24] LABS: Alanine Aminotransferase 255 U/L (6-35); Alkaline Phosphatase 90 U/L (38-126); Anion Gap 10 mmol/L (4-12); Aspartate Amino Transferase 442 U/L (14-36); Blood Urea Nitrogen 25 mg/dL (7-17); Calcium 9.1 mg/dL (8.4-10.2); Carbon Dioxide 28 mmol/L (22-30); Chloride 99 mmol/L (98-107); Estimated CRCL calculation 38 ml/min; Estimated Glomerular Filt Rate > 60; Glucose 111 mg/dL (65-110); Potassium 4.6 mmol/L (3.4-5.0); Sodium 137 mmol/L (137-145)
--- NOTE | 2024-05-02 12:46 | ED.DIZZY ---
HPI - Dizziness General Chief Complaint: Syncope <Bhavesh Lieberman PA-C - Last Filed: 05/02/24 18:37> Stated Complaint: malaise, syncope <Bhavesh Lieberman PA-C - Last Filed: 05/02/24 18:37> Time Seen by Provider: 05/02/24 12:21 <Bhavesh Lieberman PA-C - Last Filed: 05/02/24 18:37> Source: patient <FRANKI Kumar Last Filed: 05/02/24 18:37> Mode of arrival: ambulatory <FRANKI Kumar Last Filed: 05/02/24 18:37> Limitations: no limitations <Bhavesh Lieberman PA-C - Last Filed: 05/02/24 18:37> History of Present Illness HPI Narrative: this is a 83-year-old female with PMH of HTN, BPPV who presents to the ED Via EMS for chief complaint of syncopal episode today. she is here bedside with her and with daughter. Daughter states that she heard a thud and found patient lying on the kitchen floor with a bruise to the back of the head. Patient states that she is not sure. There was no prodromal symptoms prior to syncope. Patient states that yesterday and earlier today she had intense shaking that she could not get to stop. She complains of malaise and not feeling well. She does note that she started to increase losartan by 25 mg couple of weeks ago but no other medication changes. Denies fevers, cough, abdominal pain chest pain, palpitations, leg swelling, diarrhea symptoms. Denies numbness, weakness, speech change, vision change. <Bhavesh Lieberman PA-C - Last Filed: 05/02/24 18:37> Related Data Home Medications: Home Medications Medication Instructions Recorded Confirmed fluticasone propionate 50 1 spray intranasal DAILY PRN 08/10/19 05/02/24 mcg/actuation nasal Allergy Symptoms spray,suspension (Allergy Relief (fluticasone)) nebivolol 20 mg tablet (Bystolic) 20 mg PO HS 08/10/19 05/02/24 cranberry 500 mg capsule 400 mg PO BID 03/07/20 05/02/24 multivitamin 1 tablet PO DAILY 03/07/20 05/02/24 calcium citrate malate-vitamin D3 200 tablet PO DAILY 04/26/23 05/02/24 500 mg-200 unit tablet Bifidobacterium infantis 4 mg 4 mg PO DAILY 05/02/24 05/02/24 capsule (Align) estradiol 0.01% (0.1 mg/gram) 1 g vaginal 4XW 05/02/24 05/02/24 vaginal cream (Estrace) losartan 25 mg tablet 25 mg PO HS 05/02/24 05/02/24 <Bhavesh Lieberman PA-C - Last Filed: 05/02/24 18:37> Allergies/Adverse Reactions: Allergies Allergy/AdvReac Type Severity Reaction Status Date / Time codeine AdvReac Intermediate Dizziness Verified 05/02/24 20:29 epinephrine AdvReac Intermediate Dizziness Verified 05/02/24 20:29 levocetirizine AdvReac Intermediate Dizziness Verified 05/02/24 20:29 levofloxacin AdvReac Intermediate Dizziness Verified 05/02/24 20:29 lidocaine AdvReac Intermediate Dizziness Verified 05/02/24 20:29 miconazole AdvReac Intermediate Dizziness Verified 05/02/24 20:29 nitrofurantoin AdvReac Intermediate Dizziness Verified 05/02/24 20:29 Penicillins AdvReac Intermediate Dizziness Verified 05/02/24 20:29 skin cleanser combination AdvReac Intermediate Dizziness Verified 05/02/24 20:29 no.17 Sulfa (Sulfonamide AdvReac Intermediate Dizziness Verified 05/02/24 20:29 Antibiotics) halex AdvReac Intermediate Dizziness Uncoded 05/02/24 20:29 nalex AdvReac Intermediate Dizziness Uncoded 05/02/24 20:29 <Bhavesh Leiberman PA-C - Last Filed: 05/02/24 18:37> Review of Systems Review of Systems: All systems as dictated in HPI <FRANKI Kumar Last Filed: 05/02/24 18:37> [facility] Past Medical History Medical History: Medical History Anxiety Arthritis Fracture of proximal end of left humerus (04/26/23) Hypercholesterolemia Hypertension Impaired fasting glucose Osteoporosis <FRANKI Kumar Last Filed: 05/02/24 18:37> Surgical History Surgical History: Surgical History History of appendectomy History of bilateral cataract extraction Hi
[2024-05-02 12:52] LABS: Appearance Urine Sl Cloudy (Clear); Color Urine Yellow (Yellow); Glucose Urine UA Negative (Negative); Protein Urine 2+ mg/dL (Negative); Specific Grav Ur 1.015 (1.001-1.035); pH Urine 6.5 (5.0-9.0)
[2024-05-02 12:53] LABS: Add Urine Microscopic? YES; Bilirubin Urine 1+ (Negative); Blood Urine 1+ (Negative); Ketones Urine Negative (Negative); Leukocyte Esterase Ur Negative LEU/UL (Negative); Nitrate Urine Negative (Negative); Urobilinogen Urine 0.2 mg/dL (<2.0)
[2024-05-02 13:16] LABS: Magnesium 1.9 mg/dL (1.6-2.3); Phosphorus 4.7 mg/dL (2.5-4.5)
[2024-05-02 13:25] LABS: NT Pro B Type Natriuretic Pept 11300 pg/mL (19.9-100); Troponin I 0.043 ng/mL (0.000-0.034)
[2024-05-02 13:31] LABS: D Dimer > 20.00 ug/mL (<0.48)
[2024-05-02 13:35] LABS: Bacteria Urine 2+ /hpf; Need Manual Microscopic Reviewed; Squamous Epithelial Cell Urine Moderate /hpf (Few)
[2024-05-02 14:03] LABS: INR 1.2
[2024-05-02 14:04] LABS: Partial Thromboplastin Time 29.9 Seconds (22.3-36.8)
[2024-05-02 14:53] LABS: Influenza A QL RT-PCR Negative (Negative); Influenza B QL RT-PCR Negative (Negative); RSV RNA, RT-PCR Negative (Negative); SARS-CoV-2 RNA PCR Negative (Negative)
[2024-05-02 15:31] LABS: Lactic Acid Reflex 1.7 mmol/L (0.7-2.0)
--- NOTE | 2024-05-02 15:37 | PC.NURSE ---
Soup ordered for pt
[2024-05-02 16:05] LABS: CRP 16.4 mg/dL (<1.0)
[2024-05-02 16:06] LABS: Procalcitonin 42.5 ng/mL
--- NOTE | 2024-05-02 16:36 | PC.NURSE ---
SAQIB Lieberman PA-C VORB to continue NS IVF. 700mL bolus continued.
--- NOTE | 2024-05-02 17:45 | PM.IMHP ---
H&P: HPI History of Present Illness Date/Time: 05/02/24 17:45 Chief Complaint: Syncope. Narrative: This is an 83-year-old female with hypertension and anxiety who presented to the emergency department via EMS from home for evaluation after syncopal episode. The patient provides the following history. She did not feel well yesterday when she got up with generalized weakness and malaise. In fact she spent majority of the day in bed or resting which is very unusual for her. She had no appetite and a bit of nausea as well. Sometime in the evening she had an episode where she had significant chills and what sounds like rigors. She did not take anything for his symptoms and was able to sleep okay overnight. When she got up this morning she tells me ?I just could not get it together? and she told me that she was feeling very anxious and shaky. She remembers walking over to get her medications and the next thing she remembers is waking up on the kitchen floor. Daughter apparently heard a thud and found the patient unresponsive on the floor. She has a small tender bump on the back of her head but denies other injuries. She does not remember feeling lightheaded or dizzy prior to the episode (it is not unusual for her to have vertigo but states this was not the case today) and she was not having chest pain, pleuritic pain, or shortness of breath. There were no reports of seizure-like activity, tongue bite, or incontinence. She also denies documented fever, headache, neck ache, sinus congestion, sore throat, cough, vomiting, diarrhea, abdominal pain, low back pain, dysuria, hematuria, joint swelling, myalgias, and open wounds. No known sick contacts. Of note the patient recently had her losartan dose increased from 50 mg to 75 mg as her systolic blood pressures were nearing 200. She has been has been monitoring her blood pressures at home and has noticed improvement; she denies that her blood pressures have been running low. In the ED: On arrival to the emergency department her blood pressure was 110/75, pulse 74, respiratory rate 13, SpO2 of 99% on room air, temperature 98.4?. For WBC count of 18.6, hemoglobin 14.6, D-dimer greater than 20, BUN 25, creatinine 0.80, lactic acid 1.7, total bilirubin 1.0, AST 442, ALT 225, alk phosphatase 90, CRP 16.4, procalcitonin 42.5, proBNP 48397, troponin 0.043. She was negative for influenza, RSV, and COVID. Urinalysis was positive for 2+ protein, 1+ blood, 1+ bilirubin, 3 to 5 RBC, 6 to 10 WBC, 2+ bacteria, and moderate squamous cells. Head CT showed no acute findings. Chest x-ray was normal. CT of the chest showed no evidence of pulmonary embolus, aortic dissection, or aortic aneurysm. Bibasilar pulmonary scarring or atelectasis also noted. No interventions were given in the ED. She is being admitted in this setting for further workup and close monitoring. Review of Systems Review of Systems: 12 systems were reviewed and are negative except for as per HPI. [facility] Past Medical History Medical History Anxiety Arthritis Fracture of proximal end of left humerus (04/26/23) Hypercholesterolemia Hypertension Impaired fasting glucose Osteoporosis Surgical History Surgical History History of appendectomy History of bilateral cataract extraction History of cholecystectomy History of hysterectomy History of tonsillectomy Status post cataract extraction Family History Family History Father Leukemia Mother CHF (congestive heart failure) Other Thyroid disorder Social History Social History Social History: Surrogate medical decision maker: Liu (spouse) or Tracy (daughter) Berger. Code status: Full code. Smoking status: Never smoker Second hand tobacco smoke exposure: No Alcohol in
--- NOTE | 2024-05-02 20:10 | ADMGEN ---
This patient, Sushma Berger, was admitted to IMU Room 231-01. Patient/family oriented to hospital policies and general routines including ID bracelet, bed and alarms, visiting hours, pain management, procedures, bathroom and other care routines, personal items, smoking policy, room service/diet, and visiting hours. Information on how to activate the Rapid Response Team has been discussed. Patient/Family are encouraged to report perceived risks to care and to ask questions if they do not understand what they are told or what they should do.
[2024-05-03] VITALS (15 sets, daily range): BP systolic 97–156; BP diastolic 48–79; PULSE 49–78; RESP 16–18; TEMP 36.1–36.5; O2SAT 90–100
[2024-05-03] MEDS: ACETAMINOPHEN 325 MG TABLET 650 MG PO ×2 (03:56→14:04)
--- NOTE | 2024-05-03 06:00 | ECHO_ITS ---
Patient Info Name: Sushma Berger Age: 83 years : 1940 Gender: Female Ht: 64 in Wt: 110 lbs BSA: 1.49 m2 HR: 68 bpm BP: 97 / 48 mmHg Heart Rhythm: Sinus Rhythm Technical Quality: Good Exam Date: 05/03/2024 9:34 AM Exam Location: Echo Lab Patient Status: Inpatient Admit Date: 05/02/2024 Staff Ordering Physician: Bhavesh Lieberman PA-C [employer]: Tiffanie Kilpatrick RDCS Attending Provider: Paulina Villarreal MD Referring Physician: Mio KRUEGER; Exam Type: CA echo doppler color flow Study Info Indications - syncope, elevated bnp Complete two-dimensional, color flow and Doppler transthoracic echocardiogram is performed. Summary 1. Left ventricular chamber dimension is normal. 2. Left ventricular systolic function is normal, estimated at 60-65%. 3. The left ventricular diastolic function is grade I diastolic dysfunction. 4. Right ventricular systolic function is normal. 5. Left atrial chamber dimension is moderately enlarged. 6. Right atrial chamber dimension is moderately enlarged. 7. There is mild aortic valve regurgitation. 8. There is mild tricuspid valve regurgitation. 9. There is mild pulmonic regurgitation. Left Ventricle Left ventricular chamber dimension is normal. Left ventricular systolic function is normal, estimated at 60-65%. There is no increased left ventricular wall thickness. Left ventricular septal wall motion is abnormal with septal motion related to bundle branch block. The left ventricular diastolic function is grade I diastolic dysfunction. Right Ventricle Right ventricular chamber dimension is normal. Right ventricular systolic function is normal. Left Atria Left atrial chamber dimension is moderately enlarged. Right Atria Right atrial chamber dimension is moderately enlarged. Atrial Septum Intact interatrial septum visualized by color flow imaging. Aortic Valve The aortic valve is trileaflet. There is no aortic valve stenosis. There is mild aortic valve regurgitation. There is moderate aortic valve calcification. Pulmonic Valve The pulmonic valve is not well visualized. There is mild pulmonic regurgitation. Mitral Valve There is trace mitral valve regurgitation. The mitral valve annulus is moderately calcified. Tricuspid Valve There is mild tricuspid valve regurgitation. Pericardium/Pleural There is no pericardial effusion. Inferior Vena Cava Normal inferior vena cava with >50% collapse upon inspiration consistent with normal right atrial pressure, 3 mmHg. Aorta The aortic root size at the sinus of Valsalva is normal. Left Ventricular Outflow Tract Name Value Normal LVOT 2D LVOT Diameter 2.0 cm LVOT Doppler LVOT Peak Gradient 6 mmHg LVOT Mean Gradient 3 mmHg LVOT VTI 30 cm LVOT VTI/AV VTI Ratio 1.0 LVOT Stroke Volume 96 ml LVOT CO 5.1 l/min LVOT CI 3.4 l/min/m2 Pulmonic Valve Name Value Normal
[2024-05-03 06:20] LABS: Basophils Percent Auto 0.4 % (0.2-1.2); Eosinophils Percent Auto 0.1 % (0-4.4); Hematocrit 36.9 % (37.0-47.0); Hemoglobin 12.3 g/dL (12.0-15.0); Immature Granulocyte Absolute 0.03 K/mm3 (0.00-0.031); Immature Granulocyte Percent A 0.3 % (0-0.5); Immature Platelet Fraction Pct 5.5 % (0.9-11.2); Lymphocytes Absolute Auto 0.51 K/mm3 (0.9-3.2); Lymphocytes Percent Auto 4.6 % (18.3-44.2); Mean Corpuscular HGB Conc 33.3 g/dl (32-36); Mean Corpuscular Hemoglobin 31.2 pg (26-34); Mean Corpuscular Volume 93.7 fl (80-100); Mean Platelet Volume 11.7 fl (7.4-10.4); Monocytes Absolute Auto 0.5 K/mm3 (0.1-0.6); Monocytes Percent Auto 4.7 % (2.6-8.5); Neutrophils Percent Auto 89.9 % (45.5-73.1); Platelet Count Result 84 k/mm3 (150-375); Red Blood Count 3.94 M/mm3 (4.2-5.4); Red Cell Distribution Width 14.6 % (11.5-14.5); White Blood Count 11.1 K/mm3 (4.5-10.0)
[2024-05-03 06:28] LABS: Lactic Acid Reflex 0.9 mmol/L (0.7-2.0)
[2024-05-03 06:36] LABS: Alanine Aminotransferase 168 U/L (6-35); Anion Gap 7 mmol/L (4-12); Aspartate Amino Transferase 195 U/L (14-36); Bilirubin,Total 0.5 mg/dL (0.2-1.3); Blood Urea Nitrogen 27 mg/dL (7-17); Calcium 8.6 mg/dL (8.4-10.2); Carbon Dioxide 26 mmol/L (22-30); Chloride 104 mmol/L (98-107); Creatine Kinase 306 U/L (30-135); Estimated CRCL calculation 37 ml/min; Estimated Glomerular Filt Rate > 60; Glucose 82 mg/dL (65-110); Magnesium 2.2 mg/dL (1.6-2.3); Potassium 3.7 mmol/L (3.4-5.0); Sodium 137 mmol/L (137-145)
[2024-05-03 06:37] LABS: Albumin Level 3.1 g/dL (3.5-5.1); Alkaline Phosphatase 97 U/L (38-126)
[2024-05-03 06:42] LABS: CRP 18.8 mg/dL (<1.0)
[2024-05-03 07:04] LABS: Procalcitonin 36.6 ng/mL
[2024-05-03 07:39] LABS: Hepatitis B Surface Antigen Negative (Negative)
[2024-05-03 07:44] LABS: HAV RESULT Negative (Negative); Hepatitis B Core IgM Result Negative (Negative)
[2024-05-03 07:56] LABS: Hepatitis C Virus Antibody Negative (Negative)
[2024-05-03] MEDS: ALPRAZolam (*CRX) 0.125 MG TABLET PO (08:25)
[2024-05-03] MEDS: busPIRone HCL 10 MG TABLET PO (08:25)
[2024-05-03] MEDS: CALCIUM/VITAMIN D 500 MG/5 MCG (200 I.U.) TABLET PO (08:25)
[2024-05-03] MEDS: MULTIVITAMINS THERAPEUTIC TAB (*BKC) 1 TABLET PO (08:25)
--- NOTE | 2024-05-03 11:51 | PC.NURSE ---
This patient, Sushma Berger, was transferred to [facility] on 05/03/24 at 1149. Personal belongings sent with patient. Report given to Cassi. Appropriate documentation sent with patient.
--- NOTE | 2024-05-03 12:52 | PC.NURSE ---
Patient received to Room 240 on 05/03 at 1200. Patient resting comfortably and oriented to new room. Shown call light and given instructions to call for help.
--- NOTE | 2024-05-03 16:01 | PM.IMPN ---
Progress Note: A&P Assessment and Plan (1) Syncope: Code(s): R55 - Syncope and collapse Status: Acute Assessment and Plan: - Unclear etiology; medications vs infection vs cardiac vs neuro. - CT head negative for acute. - CXR negative. - EKG with no ischemic changes. - CTA chest negative for PE. - UA with 2+ bacteria, 6-10 WBC's otherwise fairly unremarkable for infection. - ECHO showing LVEF 60-65% with Grade I diastolic dysfunction. - Maintains sinus stone on telemetry (low-mid 50's). - Stock Analyst consulted per family request. - Continue tele monitoring. (2) Elevated troponin: Code(s): R79.89 - Other specified abnormal findings of blood chemistry Status: Acute Assessment and Plan: - Mildly elevated and trended down. - No chest pain or SOB. - Possibly reactive. - ECHO unremarkable. - Continue to trend troponin. (3) Elevated LFTs: Code(s): R79.89 - Other specified abnormal findings of blood chemistry Status: Acute Assessment and Plan: - Unclear etiology and trending down. - US Abdomen RUQ negative. - Monitor trend. (4) Bacteriuria: Code(s): R82.71 - Bacteriuria Status: Acute Assessment and Plan: - Denies urinary symptoms. - Unclear if true UTI. - Abx started on ER. - Continue abx for now. (5) Hypertension: Code(s): I10 - Essential (primary) hypertension Status: Acute Assessment and Plan: - Well controlled. - Continue current treatment. (6) Anxiety: Code(s): F41.9 - Anxiety disorder, unspecified Status: Acute Assessment and Plan: - Continue Buspirone and Xanax PRN Time Spent With Patient Time with patient: 25 - 35 minutes Subjective Date/time seen: 05/03/24 11:05 Interval history: Patient was brought in to the ER following a syncope episode at home. Patient was apparently standing on her kitchen when her daughter heard a thud, only to come find her mom mom laying on the floor on her back. Patient does not recall what happened, can only remember standing on her kitchen. Denies any dizziness at home, but states her BP medication was recently changed and her pulse has been running in the 50's as well. Currently patient on bedrest with no symptoms or any acute distress. Review of Systems Review of Systems: All systems reviewed & are unremarkable except as noted in HPI and below Exam Narrative: General: Well-developed elderly female in no acute distress. HEENT: Atraumatic, PERRL, EOMI. Sclera anicteric. Oropharynx is clear. Neck: Supple. Respiratory: Respirations are nonlabored and lungs are clear bilaterally. Cardiovascular: Regular rate and rhythm with S1-S2. Gastrointestinal: Abdomen is soft, nontender, and nondistended with positive bowel sounds. Skin: Warm and dry. Small abrasion on the right elbow. No rashes or lesions. Extremities: No cyanosis, clubbing, or edema. Radial and pedal pulses 2+. Neurological: Alert and oriented. Cranial nerves II-XII are grossly intact. Psychiatric: Pleasant and cooperative with appropriate mood and affect. Objective Data Vital Signs Vital Signs: Vital Signs - 24 hr 05/02/24 16:26 05/02/24 18:19 05/02/24 19:56 Temperature 98.9 F 97.9 F Pulse Rate 70 65 67 Respiratory Rate 20 16 20 Blood Pressure 109/56 L 109/56 L 119/61 Pulse Oximetry 98 97 Oxygen Delivery 05/02/24 20:10 05/02/24 20:30 05/02/24 20:30 Temperature 98.4 F Pulse Rate 71 68 68 Respiratory Rate 18 18 Blood Pressure 121/64 Pulse Oximetry 96 96 Oxygen Delivery Room Air 05/02/24 22:00 05/03/24 00:17 05/03/24 00:00 Temperature 97.7 F Pulse Rate 62 78 62 Respiratory Rate 18 Blood Pressure 135/72 Pulse Oximetry 98 Oxygen Delivery 05/03/24 00:00 05/03/24 02:00 05/03/24 04:00 Temperature Pulse Rate 62 68 68 Respiratory Rate 18 Blood Pressure Pulse Oximetry 98 Oxygen Delivery Room Air 05/03/24 04:00 05/03/24 05:
[2024-05-04] VITALS (11 sets, daily range): BP systolic 119–176; BP diastolic 49–98; PULSE 54–93; RESP 16–19; TEMP 36.5–37.1; O2SAT 96–99
[2024-05-04 06:32] LABS: Troponin I < 0.012 ng/mL (0.000-0.034)
--- NOTE | 2024-05-04 07:50 | PM.IMPN ---
Progress Note: A&P Assessment and Plan (1) Syncope: Code(s): R55 - Syncope and collapse Status: Acute Assessment and Plan: Now bacteremic so would be at risk for arrhthmia in the setting of infection. CT head no acute findings. 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 - CTA chest negative for PE. - UA with 2+ bacteria, 6-10 WBC's otherwise fairly unremarkable for infection. - ECHO showing LVEF 60-65% with Grade I diastolic dysfunction, LV septal wall motion abnormality attributed to BBB - Maintains sinus stone on telemetry (low-mid 50's). --Treatment of bacteremia as noted (2) Elevated troponin: Code(s): R79.89 - Other specified abnormal findings of blood chemistry Status: Acute Assessment and Plan: - Mildly elevated and trended down. - No chest pain or SOB. - Possibly reactive. - ECHO unremarkable. - Continue to trend troponin. (3) Elevated LFTs: Code(s): R79.89 - Other specified abnormal findings of blood chemistry Status: Acute Assessment and Plan: - Unclear etiology and trending down. - US Abdomen RUQ negative. - Monitor trend. (4) Bacteriuria: Code(s): R82.71 - Bacteriuria Status: Acute Assessment and Plan: --Reported dysuria early this morning - Culture not done from first UA, repeat UA/micro and culture, but has been on ceftiaxone - Ceftriaxone started 05/03--Continue for possible bacteremia - Continue abx for now. (5) Hypertension: Code(s): I10 - Essential (primary) hypertension Status: Acute Assessment and Plan: - Well controlled. - Continue current treatment. (6) Anxiety: Code(s): F41.9 - Anxiety disorder, unspecified Status: Acute Assessment and Plan: - Continue Buspirone and Xanax PRN (7) Bacteremia: Code(s): R78.81 - Bacteremia Status: Acute Assessment and Plan: Blood culture /05/02 with GNB, follow culture. Unclear source. UA only 6-10 WBC's on admission. Was 2+ bacteria but also large epithelial cells. LFT's were elevated and trending down. Overall very mild GI symptoms but may be a GI source. --Ceftriaxone 1G started empirically 05/03, increased to 2G 05/04 since blood cultures positive --Repeat UA with culture given report of dysuria this morning --Repeat blood cultures 05/04, continue daily until negative Time Spent With Patient Time: 58 minutes Subjective Date/time seen: 05/04/24 07:50 Interval history: Reports dysuria this morning but just voided an no symptoms this time. No dizziness. LFT's improving. Blood cultures 1/2 positive, GNB's. Culture pending. No abdominal pain or nausea. Had a decreased appetite and some transient abdominal pain last weekend but otherwise no GI symptoms, no diarrhea. Review of Systems Review of Systems: 12 systems were reviewed and are negative except for as per HPI. All systems reviewed & are unremarkable except as noted in HPI and below Exam Narrative: General: Well-developed elderly female in no acute distress. HEENT: Atraumatic, PERRL, EOMI. Sclera anicteric. Oropharynx is clear. Neck: Supple. Respiratory: Respirations are nonlabored and lungs are clear bilaterally. Cardiovascular: Regular rate and rhythm with S1-S2. Gastrointestinal: Abdomen is soft, nontender, and nondistended with positive bowel sounds. Skin: Warm and dry. Small abrasion on the right elbow. No rashes or lesions. Extremities: No cyanosis, clubbing, or edema. Radial and pedal pulses 2+. Neurological: Alert and oriented. Cranial nerves II-XII are grossly intact. Psychiatric: Pleasant and cooperative with appropriate mood and affect. Objective Data Vital Signs Vital Signs: Vital Signs - 24 hr 05/03/24 08:00 05/03/24 08:00 05/03/24 08:00 Temperature 97.3 F L Pulse Rate 63 72 Respiratory Rate 18
[2024-05-04] MEDS: busPIRone HCL 10 MG TABLET PO (08:15)
[2024-05-04] MEDS: MULTIVITAMINS THERAPEUTIC TAB (*BKC) 1 TABLET PO (08:16)
[2024-05-04] MEDS: ALPRAZolam (*CRX) 0.125 MG TABLET PO (08:16)
[2024-05-04] MEDS: CALCIUM/VITAMIN D 500 MG/5 MCG (200 I.U.) TABLET PO (08:16)
[2024-05-04] MEDS: ACETAMINOPHEN 325 MG TABLET 650 MG PO ×2 (08:16→23:47)
[2024-05-04 08:50] LABS: Basophils Percent Auto 0.6 % (0.2-1.2); Eosinophils Absolute Auto 0.2 K/mm3 (0-0.3); Eosinophils Percent Auto 2.1 % (0-4.4); Hematocrit 38.9 % (37.0-47.0); Hemoglobin 13.4 g/dL (12.0-15.0); Immature Granulocyte Absolute 0.05 K/mm3 (0.00-0.031); Immature Granulocyte Percent A 0.7 % (0-0.5); Immature Platelet Fraction Pct 4.9 % (0.9-11.2); Lymphocytes Absolute Auto 0.77 K/mm3 (0.9-3.2); Lymphocytes Percent Auto 10.6 % (18.3-44.2); Mean Corpuscular HGB Conc 34.4 g/dl (32-36); Mean Corpuscular Hemoglobin 31.9 pg (26-34); Mean Corpuscular Volume 92.6 fl (80-100); Mean Platelet Volume 11.6 fl (7.4-10.4); Monocytes Absolute Auto 0.5 K/mm3 (0.1-0.6); Monocytes Percent Auto 7.2 % (2.6-8.5); Neutrophils Absolute Auto 5.7 K/mm3 (1.3-6.7); Neutrophils Percent Auto 78.8 % (45.5-73.1); Platelet Count Result 103 k/mm3 (150-375); Red Cell Distribution Width 14.2 % (11.5-14.5); White Blood Count 7.3 K/mm3 (4.5-10.0)
[2024-05-04 08:58] LABS: Alanine Aminotransferase 129 U/L (6-35); Albumin Level 3.5 g/dL (3.5-5.1); Alkaline Phosphatase 138 U/L (38-126); Anion Gap 9 mmol/L (4-12); Aspartate Amino Transferase 108 U/L (14-36); Bilirubin,Total 0.5 mg/dL (0.2-1.3); Blood Urea Nitrogen 18 mg/dL (7-17); Calcium 8.7 mg/dL (8.4-10.2); Carbon Dioxide 27 mmol/L (22-30); Chloride 103 mmol/L (98-107); Estimated CRCL calculation 42 ml/min; Estimated Glomerular Filt Rate > 60; Glucose 96 mg/dL (65-110); Phosphorus 2.8 mg/dL (2.5-4.5); Potassium 3.4 mmol/L (3.4-5.0); Sodium 139 mmol/L (137-145)
--- NOTE | 2024-05-04 09:59 | PM.CNCAR ---
Assessment and Plan Assessment and plan (1) Syncope: Code(s): R55 - Syncope and collapse Status: Acute Assessment and Plan: EKG showed ectopic atrial rhythm, incomplete right bundle branch block. Echocardiogram this admission shows LVEF 60-65%, grade 1 diastolic dysfunction, moderate biatrial enlargement, mild AR, mild TR, mild MS. Telemetry thus far shows sinus rhythm, occasional PVCs, no other significant arrhythmias. Recommend to check orthostatic vital signs. Recommend 30 day event monitor at the time of discharge. Order for event monitor placed. No additional cardiac workup recommended at this time. (2) Elevated troponin: Code(s): R79.89 - Other specified abnormal findings of blood chemistry Status: Acute Assessment and Plan: Flat, not an acute coronary syndrome. (3) Bacteriuria: Code(s): R82.71 - Bacteriuria Status: Acute Assessment and Plan: Being treated for a possible UTI. Management as per primary team. (4) Hypertension: Code(s): I10 - Essential (primary) hypertension Status: Acute Assessment and Plan: Continue home antihypertensive regimen. Plan Recommendations and plan discussed with Hospitalist. Romina for discharge from a cardiac standpoint. Will arrange for follow up in our office. History of Present Illness History of Present Illness Consult date/time: 05/04/24 09:59 Requesting physician: Guido Meng NP Consult reason: Other (Syncope ) Reason For Visit: syncope, elevated troponin Narrative: We are consulted for syncope. This is an 83 year old female with hypertension who presented to [facility] after a syncopal episode. Patient reports that she was not feeling well since Thursday. [place] tired, her arms were tingling. On Thursday, she was standing up in the kitchen and had a syncopal episode. Lost consciousness for a few minutes. Initial troponin on admission was 0.043, 0.040, with third level being negative. EKG showed ectopic atrial rhythm, incomplete right bundle branch block. Echocardiogram this admission shows LVEF 60-65%, grade 1 diastolic dysfunction, moderate biatrial enlargement, mild AR, mild TR, mild MS. Telemetry thus far shows sinus rhythm, occasional PVCs, no other significant arrhythmias. Review of Systems Review of Systems: All systems reviewed & are unremarkable except as noted in HPI and below (HPI) [facility] Past Medical History Medical History Anxiety Arthritis Fracture of proximal end of left humerus (04/26/23) Hypercholesterolemia Hypertension Impaired fasting glucose Osteoporosis Surgical History Surgical History History of appendectomy History of bilateral cataract extraction History of cholecystectomy History of hysterectomy History of tonsillectomy Status post cataract extraction Family History Family History Father Leukemia Mother CHF (congestive heart failure) Other Thyroid disorder Social History Social History Social History: Surrogate medical decision maker: Liu (spouse) or Tracy (daughter) Celine. Code status: Full code. Smoking status: Never smoker Second hand tobacco smoke exposure: No Alcohol intake: never Substance use: never Substance use type: does not use Do You Feel Safe in your Home?: Yes Lack of Transportation: No Lack of Food: Never True Current Housing: I Have Housing Concerned About Future Housing: No Difficulty Paying Gas/Electric Bills: No Difficulty Paying for Meds: No Currently Unemployed: No Education: Bachelor's Degree Difficulty w/ Childcare or Family Care: No Living arrangements: with family Additional living arrangements comments: Lives with in [place]. Occupation/Education: retired Additional occupatio
[2024-05-04 11:46] LABS: Add Urine Microscopic? NO; Appearance Urine Clear (Clear); Bilirubin Urine Negative (Negative); Blood Urine Negative (Negative); Color Urine Yellow (Yellow); Glucose Urine UA Negative (Negative); Ketones Urine Negative (Negative); Leukocyte Esterase Ur Negative LEU/UL (Negative); Nitrate Urine Negative (Negative); Protein Urine Negative (Negative); Specific Grav Ur 1.005 (1.001-1.035); Urobilinogen Urine 0.2 mg/dL (<2.0); pH Urine 7.5 (5.0-9.0)
[2024-05-04] MEDS: cefTRIAXone 2 GM/NS 100 ML 2 GM/100 ML BAG IVPB (14:58)
[2024-05-05] VITALS (9 sets, daily range): BP systolic 141–183; BP diastolic 68–94; PULSE 54–75; RESP 14–18; TEMP 35.9–36.9; O2SAT 97–100
--- NOTE | 2024-05-05 07:47 | PC.NURSE ---
Spoke with Zonia about AM blood pressure of 183/91 at 0745. Provider aware and looking into restarting blood pressure medications
--- NOTE | 2024-05-05 07:57 | PM.IMPN ---
Progress Note: A&P Assessment and Plan (1) Syncope: Code(s): R55 - Syncope and collapse Status: Acute Assessment and Plan: Now bacteremic so would be at risk for arrhthmia in the setting of infection. CT head no acute findings. 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 - CTA chest negative for PE. - UA with 2+ bacteria, 6-10 WBC's otherwise fairly unremarkable for infection. - ECHO showing LVEF 60-65% with Grade I diastolic dysfunction, LV septal wall motion abnormality attributed to BBB - Maintains sinus stone on telemetry (low-mid 50's). --Treatment of bacteremia as noted -card consulted- -check orthostatics - 30 days holter monitor and outpt f/u with card. - holding beta blockers for now (2) Elevated troponin: Code(s): R79.89 - Other specified abnormal findings of blood chemistry Status: Acute Assessment and Plan: - Mildly elevated and trended down. - No chest pain or SOB. - Possibly reactive. - ECHO unremarkable. - Continue to trend troponin. (3) Elevated LFTs: Code(s): R79.89 - Other specified abnormal findings of blood chemistry Status: Acute Assessment and Plan: - Unclear etiology and trending down. - US Abdomen RUQ negative. - Monitor trend. (4) Bacteriuria: Code(s): R82.71 - Bacteriuria Status: Acute Assessment and Plan: --Reported dysuria early this morning - Culture not done from first UA, repeat UA/micro and culture, but has been on ceftiaxone - Ceftriaxone started 05/03--Continue for possible bacteremia - Continue IV abx for now - if repeat BC negative tomorrow- 05/05, switch IV to po antibiotics and - anticipate discharge if stable and no acute issues. (5) Hypertension: Code(s): I10 - Essential (primary) hypertension Status: Acute Assessment and Plan: -her home BP meds were held and it had been elevated. - will restart losartan 50 mg and hold beta marlys for now (6) Anxiety: Code(s): F41.9 - Anxiety disorder, unspecified Status: Acute Assessment and Plan: - Continue Buspirone and Xanax PRN (7) Bacteremia: Code(s): R78.81 - Bacteremia Status: Acute Assessment and Plan: Blood culture 09/01 05/02 with GNB, follow culture. Unclear source. UA only 6-10 WBC's on admission. Was 2+ bacteria but also large epithelial cells. LFT's were elevated and trending down. Overall very mild GI symptoms but may be a GI source. --Ceftriaxone 1G started empirically 05/03, increased to 2G 05/04 since blood cultures positive --Repeat UA with culture given report of dysuria this morning --Repeat blood cultures 05/04, continue daily until negative Time Spent With Patient Time with patient: Greater than 35 minutes Subjective Date/time seen: 05/05/24 07:57 Interval history: Admitted on 05/02 for syncope. On arrival to the emergency department her blood pressure was 110/75, pulse 74, respiratory rate 13, SpO2 of 99% on room air, temperature 98.4?. For WBC count of 18.6, hemoglobin 14.6, D-dimer greater than 20, BUN 25, creatinine 0.80, lactic acid 1.7, total bilirubin 1.0, AST 442, ALT 225, alk phosphatase 90, CRP 16.4, procalcitonin 42.5, proBNP 55277, troponin 0.043. She was negative for influenza, RSV, and COVID. Urinalysis was positive for 2+ protein, 1+ blood, 1+ bilirubin, 3 to 5 RBC, 6 to 10 WBC, 2+ bacteria, and moderate squamous cells. Head CT showed no acute findings. Chest x-ray was normal. CT of the chest showed no evidence of pulmonary embolus, aortic dissection, or aortic aneurysm. Bibasilar pulmonary scarring or atelectasis also noted. No interventions were given in the ED. She is being admitted in this setting for further workup and close monitoring . Cardiology saw her on 05/04- outpt Holter and f/u arranged. 05/05 assuming care- No abdominal pain or nausea. Had a decreased
[2024-05-05] MEDS: MULTIVITAMINS THERAPEUTIC TAB (*BKC) 1 TABLET PO (08:52)
[2024-05-05] MEDS: ALPRAZolam (*CRX) 0.125 MG TABLET PO (08:52)
[2024-05-05] MEDS: CALCIUM/VITAMIN D 500 MG/5 MCG (200 I.U.) TABLET PO (08:52)
[2024-05-05] MEDS: LOSARTAN POTASSIUM 50 MG TABLET PO (08:52)
[2024-05-05] MEDS: busPIRone HCL 10 MG TABLET PO (08:52)
[2024-05-05] MEDS: cefTRIAXone 2 GM/NS 100 ML 2 GM/100 ML BAG IVPB (08:53)
[2024-05-05] MEDS: CEFEPIME 2 GM/NS 50 ML 2 GM/50 ML BAG IVPB (15:00)
[2024-05-05] MEDS: DOCUSATE SODIUM 100 MG CAPSULE PO (19:00)
[2024-05-06] VITALS (18 sets, daily range): BP systolic 128–185; BP diastolic 71–114; PULSE 53–98; RESP 12–20; TEMP 36.1–36.9; O2SAT 97–99
[2024-05-06] MEDS: CEFEPIME 2 GM/NS 50 ML 2 GM/50 ML BAG IVPB ×2 (02:37→15:27)
[2024-05-06] MEDS: LOSARTAN POTASSIUM 50 MG TABLET PO (07:09)
[2024-05-06 08:36] LABS: Basophils Absolute Auto 0.1 K/mm3 (0.0-0.1); Basophils Percent Auto 0.9 % (0.2-1.2); Eosinophils Absolute Auto 0.1 K/mm3 (0-0.3); Eosinophils Percent Auto 1.4 % (0-4.4); Hematocrit 41.2 % (37.0-47.0); Hemoglobin 14.5 g/dL (12.0-15.0); Immature Granulocyte Absolute 0.15 K/mm3 (0.00-0.031); Immature Granulocyte Percent A 2.3 % (0-0.5); Lymphocytes Absolute Auto 1.28 K/mm3 (0.9-3.2); Lymphocytes Percent Auto 19.6 % (18.3-44.2); Mean Corpuscular HGB Conc 35.2 g/dl (32-36); Mean Corpuscular Hemoglobin 31.5 pg (26-34); Mean Corpuscular Volume 89.4 fl (80-100); Mean Platelet Volume 10.6 fl (7.4-10.4); Monocytes Absolute Auto 0.4 K/mm3 (0.1-0.6); Monocytes Percent Auto 6.7 % (2.6-8.5); Neutrophils Absolute Auto 4.5 K/mm3 (1.3-6.7); Neutrophils Percent Auto 69.1 % (45.5-73.1); Platelet Count Result 147 k/mm3 (150-375); Red Blood Count 4.61 M/mm3 (4.2-5.4); Red Cell Distribution Width 14.1 % (11.5-14.5); White Blood Count 6.5 K/mm3 (4.5-10.0)
[2024-05-06 08:57] LABS: Alanine Aminotransferase 92 U/L (6-35); Alkaline Phosphatase 214 U/L (38-126); Anion Gap 12 mmol/L (4-12); Aspartate Amino Transferase 62 U/L (14-36); Bilirubin,Total 0.7 mg/dL (0.2-1.3); Blood Urea Nitrogen 12 mg/dL (7-17); Calcium 9.3 mg/dL (8.4-10.2); Carbon Dioxide 26 mmol/L (22-30); Chloride 102 mmol/L (98-107); Estimated CRCL calculation 45 ml/min; Estimated Glomerular Filt Rate > 60; Glucose 116 mg/dL (65-110); Potassium 3.5 mmol/L (3.4-5.0); Sodium 140 mmol/L (137-145)
[2024-05-06] MEDS: ALPRAZolam (*CRX) 0.125 MG TABLET PO (09:08)
[2024-05-06] MEDS: busPIRone HCL 10 MG TABLET PO (09:08)
[2024-05-06] MEDS: MULTIVITAMINS THERAPEUTIC TAB (*BKC) 1 TABLET PO (09:08)
[2024-05-06] MEDS: CALCIUM/VITAMIN D 500 MG/5 MCG (200 I.U.) TABLET PO (09:09)
[2024-05-06] MEDS: LOSARTAN POTASSIUM 25 MG TABLET PO (09:34)
[2024-05-06] MEDS: hydrALAZINE HCL 20 MG/ML VIAL 10 MG IV PUSH ×2 (09:35→16:22)
--- NOTE | 2024-05-06 11:24 | PM.IMPN ---
Progress Note: A&P Assessment and Plan (1) Syncope: Code(s): R55 - Syncope and collapse Status: Acute Assessment and Plan: Now bacteremic so would be at risk for arrhthmia in the setting of infection. CT head no acute findings. 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 - CTA chest negative for PE. - UA with 2+ bacteria, 6-10 WBC's otherwise fairly unremarkable for infection. - ECHO showing LVEF 60-65% with Grade I diastolic dysfunction, LV septal wall motion abnormality attributed to BBB - Maintains sinus stone on telemetry (low-mid 50's). --Treatment of bacteremia as noted -card consulted- -check orthostatics - 30 days holter monitor and outpt f/u with card. - holding beta blockers for now 05/06/24: Stable NSR on the reviewed telemetry. Holter monitor at discharge Continue to hold Beta Blockers. (2) Elevated troponin: Code(s): R79.89 - Other specified abnormal findings of blood chemistry Status: Acute Assessment and Plan: - Mildly elevated and trended down. - No chest pain or SOB. - Possibly reactive. - ECHO unremarkable. - Continue to trend troponin. 05/06/24: Resolved. Trop has trended down to normal. (3) Elevated LFTs: Code(s): R79.89 - Other specified abnormal findings of blood chemistry Status: Acute Assessment and Plan: - Unclear etiology and trending down. - US Abdomen RUQ negative. - Monitor trend. 05/06/24: Continued transaminitis present, but trending downward Continue to monitor trend. Etiology unclear. Noted and reviewed normal RUQ US. (4) Bacteriuria: Code(s): R82.71 - Bacteriuria Status: Acute Assessment and Plan: --Reported dysuria early this morning - Culture not done from first UA, repeat UA/micro and culture, but has been on ceftiaxone - Ceftriaxone started 05/03--Continue for possible bacteremia - Continue IV abx for now - if repeat BC negative tomorrow- 05/05, switch IV to po antibiotics and - anticipate discharge if stable and no acute issues. 05/06/24: Blood cultures are still pending. Possible discharge on 05/07/24 if repeat are negative. Currently on Cefepime, (Was changed 05/05/24 from Rocephin) Continue to monitor labs and VS. Final urine culture is negative for growth. (5) Hypertension: Code(s): I10 - Essential (primary) hypertension Status: Acute Assessment and Plan: -her home BP meds were held and it had been elevated. - will restart losartan 50 mg and hold beta marlys for now 05/06/24: Pts BP has been running high on review today. I ordered her morning dose to be given early and she received PRN hydralazine given her degree of elevation. PM dose of Losartan was not re-ordered, so it is reordered at this time. Pt should be taking Losartan 50 mg in AM and 25 mg in PM. Continue to hold her Beta marlys for now. Continue to monitor VS. (6) Anxiety: Code(s): F41.9 - Anxiety disorder, unspecified Status: Acute Assessment and Plan: - Continue Buspirone and Xanax PRN 05/06/24: Pt does appear anxious overall. Continue home medications. (7) Bacteremia: Code(s): R78.81 - Bacteremia Status: Acute Assessment and Plan: Blood culture 09/01 05/02 with GNB, follow culture. Unclear source. UA only 6-10 WBC's on admission. Was 2+ bacteria but also large epithelial cells. LFT's were elevated and trending down. Overall very mild GI symptoms but may be a GI source. --Ceftriaxone 1G started empirically 05/03, increased to 2G 05/04 since blood cultures positive --Repeat UA with culture given report of dysuria this morning --Repeat blood cultures 05/04, continue daily until negative 05/06/24: Blood cultures are still pending, but preliminarily negative. Abx were changed to Cefepime yesterday. Continue pending culture report and change to po if
[2024-05-06] MEDS: LIDOCAINE HCL 1% PF INJ 5 ML VIAL INFILTRATE (15:05)
[2024-05-06] MEDS: polyethylene glycoL 3350 17 GM POWD.PACK PO (15:26)
[2024-05-06] MEDS: NEBIVOLOL HCL 5 MG TABLET 20 MG PO (20:30)
[2024-05-06] MEDS: SALINE LOCK FLUSH 10 ML IV PUSH (21:14)
[2024-05-07] VITALS (14 sets, daily range): BP systolic 121–178; BP diastolic 61–98; PULSE 59–89; RESP 16–20; TEMP 36.1–36.9; O2SAT 96–100
[2024-05-07] MEDS: CEFEPIME 2 GM/NS 50 ML 2 GM/50 ML BAG IVPB ×2 (03:06→16:00)
[2024-05-07] MEDS: SALINE LOCK FLUSH 10 ML IV PUSH ×3 (05:52→20:58)
[2024-05-07 06:02] LABS: Basophils Absolute Auto 0.1 K/mm3 (0.0-0.1); Basophils Percent Auto 0.7 % (0.2-1.2); Eosinophils Absolute Auto 0.2 K/mm3 (0-0.3); Eosinophils Percent Auto 2.6 % (0-4.4); Hematocrit 39.3 % (37.0-47.0); Hemoglobin 13.7 g/dL (12.0-15.0); Immature Granulocyte Absolute 0.08 K/mm3 (0.00-0.031); Immature Granulocyte Percent A 1.1 % (0-0.5); Lymphocytes Absolute Auto 2.13 K/mm3 (0.9-3.2); Lymphocytes Percent Auto 29.4 % (18.3-44.2); Mean Corpuscular HGB Conc 34.9 g/dl (32-36); Mean Corpuscular Hemoglobin 31.3 pg (26-34); Mean Corpuscular Volume 89.7 fl (80-100); Mean Platelet Volume 10.2 fl (7.4-10.4); Monocytes Absolute Auto 0.6 K/mm3 (0.1-0.6); Monocytes Percent Auto 7.9 % (2.6-8.5); Neutrophils Absolute Auto 4.2 K/mm3 (1.3-6.7); Neutrophils Percent Auto 58.3 % (45.5-73.1); Platelet Count Result 178 k/mm3 (150-375); Red Blood Count 4.38 M/mm3 (4.2-5.4); Red Cell Distribution Width 14.2 % (11.5-14.5); White Blood Count 7.3 K/mm3 (4.5-10.0)
[2024-05-07 06:15] LABS: Alanine Aminotransferase 74 U/L (6-35); Albumin Level 3.7 g/dL (3.5-5.1); Alkaline Phosphatase 192 U/L (38-126); Anion Gap 8 mmol/L (4-12); Aspartate Amino Transferase 59 U/L (14-36); Bilirubin,Total 0.5 mg/dL (0.2-1.3); Blood Urea Nitrogen 16 mg/dL (7-17); Calcium 9.1 mg/dL (8.4-10.2); Carbon Dioxide 26 mmol/L (22-30); Chloride 104 mmol/L (98-107); Estimated CRCL calculation 39 ml/min; Estimated Glomerular Filt Rate > 60; Glucose 101 mg/dL (65-110); Potassium 3.6 mmol/L (3.4-5.0); Sodium 138 mmol/L (137-145)
--- NOTE | 2024-05-07 07:24 | PM.IMPN ---
Progress Note: A&P Assessment and Plan (1) Syncope: Code(s): R55 - Syncope and collapse Status: Acute Assessment and Plan: Now bacteremic so would be at risk for arrhthmia in the setting of infection. CT head no acute findings. 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 - CTA chest negative for PE. - UA with 2+ bacteria, 6-10 WBC's otherwise fairly unremarkable for infection. - ECHO showing LVEF 60-65% with Grade I diastolic dysfunction, LV septal wall motion abnormality attributed to BBB - Maintains sinus stone on telemetry (low-mid 50's). --Treatment of bacteremia as noted -card consulted- -check orthostatics - 30 days holter monitor and outpt f/u with card. - holding beta blockers for now 05/06/24: Stable NSR on the reviewed telemetry. Holter monitor at discharge Continue to hold Beta Blockers. [id number] (2) Elevated troponin: Code(s): R79.89 - Other specified abnormal findings of blood chemistry Status: Acute Assessment and Plan: - Mildly elevated and trended down. - No chest pain or SOB. - Possibly reactive. - ECHO unremarkable. - Continue to trend troponin. 05/06/24: Resolved. Trop has trended down to normal. (3) Elevated LFTs: Code(s): R79.89 - Other specified abnormal findings of blood chemistry Status: Acute Assessment and Plan: - Unclear etiology and trending down. - US Abdomen RUQ negative. - Monitor trend. 05/06/24: Continued transaminitis present, but trending downward Continue to monitor trend. Etiology unclear. Noted and reviewed normal RUQ US. (4) Bacteriuria: Code(s): R82.71 - Bacteriuria Status: Acute Assessment and Plan: --Reported dysuria early this morning - Culture not done from first UA, repeat UA/micro and culture, but has been on ceftiaxone - Ceftriaxone started 05/03--Continue for possible bacteremia - Continue IV abx for now - if repeat BC negative tomorrow- 05/05, switch IV to po antibiotics and - anticipate discharge if stable and no acute issues. 05/06/24: Blood cultures are still pending. Possible discharge on 05/07/24 if repeat are negative. Currently on Cefepime, (Was changed 05/05/24 from Rocephin) Continue to monitor labs and VS. Final urine culture is negative for growth. 05/07- Pt will need to have IV abx at discharge- Cefepime 2G Q12 hrs for 10 days upon discharge-total of 20 doses. Care Coordination was made aware and PICC line is ordered. (5) Hypertension: Code(s): I10 - Essential (primary) hypertension Status: Acute Assessment and Plan: -her home BP meds were held and it had been elevated. - will restart losartan 50 mg and hold beta marlys for now 05/06/24: Pts BP has been running high on review today. I ordered her morning dose to be given early and she received PRN hydralazine given her degree of elevation. PM dose of Losartan was not re-ordered, so it is reordered at this time. Pt should be taking Losartan 50 mg in AM and 25 mg in PM. Continue to hold her Beta marlys for now. Continue to monitor VS. 05/07 remains elevated- losartan 25 mg was added yesterday- will monitor for now- might need to take 50 mg bid to ensure betetr control (6) Anxiety: Code(s): F41.9 - Anxiety disorder, unspecified Status: Acute Assessment and Plan: - Continue Buspirone and Xanax PRN 05/06/24: Pt does appear anxious overall. Continue home medications. (7) Bacteremia: Code(s): R78.81 - Bacteremia Status: Acute Assessment and Plan: Blood culture 09/01 05/02 with GNB, follow culture. Unclear source. UA only 6-10 WBC's on admission. Was 2+ bacteria but also large epithelial cells. LFT's were elevated and trending down. Overall very mild GI symptoms but may be a GI source. --Ceftriaxone 1G started empirically 05/03, increased to 2G
[2024-05-07 07:58] LABS: Anisocytosis 1+; Platelet Estimate Adequate (Adequate); Poikilocytosis 1+; Schistocytes None Seen
[2024-05-07 07:59] LABS: Atypical Lymphocytes Present; Smudge Cells PRESENT
[2024-05-07] MEDS: busPIRone HCL 10 MG TABLET PO (08:30)
[2024-05-07] MEDS: ALPRAZolam (*CRX) 0.125 MG TABLET PO (08:31)
[2024-05-07] MEDS: CALCIUM/VITAMIN D 500 MG/5 MCG (200 I.U.) TABLET PO (08:31)
[2024-05-07] MEDS: polyethylene glycoL 3350 17 GM POWD.PACK PO (08:31)
[2024-05-07] MEDS: LOSARTAN POTASSIUM 25 MG TABLET 75 MG PO (08:31)
[2024-05-07] MEDS: DOCUSATE SODIUM 100 MG CAPSULE PO (08:31)
[2024-05-07] MEDS: MULTIVITAMINS THERAPEUTIC TAB (*BKC) 1 TABLET PO (08:31)
[2024-05-07] MEDS: BISACODYL 10 MG SUPPOSITORY RECTAL (19:05)
[2024-05-07] MEDS: NEBIVOLOL HCL 5 MG TABLET 20 MG PO (20:57)
[2024-05-08] VITALS (15 sets, daily range): BP systolic 102–188; BP diastolic 69–97; PULSE 57–85; RESP 12–20; TEMP 36.3–37.1; O2SAT 98–100
[2024-05-08] MEDS: CEFEPIME 2 GM/NS 50 ML 2 GM/50 ML BAG IVPB ×2 (03:34→20:25)
[2024-05-08] MEDS: SALINE LOCK FLUSH 10 ML IV PUSH ×3 (06:25→20:26)
--- NOTE | 2024-05-08 07:58 | PM.IMPN ---
Progress Note: A&P Assessment and Plan (1) Syncope: Code(s): R55 - Syncope and collapse Status: Acute Assessment and Plan: Now bacteremic so would be at risk for arrhthmia in the setting of infection. CT head no acute findings. 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 - CTA chest negative for PE. - UA with 2+ bacteria, 6-10 WBC's otherwise fairly unremarkable for infection. - ECHO showing LVEF 60-65% with Grade I diastolic dysfunction, LV septal wall motion abnormality attributed to BBB - Maintains sinus stone on telemetry (low-mid 50's). --Treatment of bacteremia as noted -card consulted- -check orthostatics - 30 days holter monitor and outpt f/u with card. - holding beta blockers for now 05/06/24: Stable NSR on the reviewed telemetry. Holter monitor at discharge Continue to hold Beta Blockers. [id number] 05/08- beta marlys was restarted - she get a little dizzy with position changes but no syncope - check orthostatics (2) Elevated troponin: Code(s): R79.89 - Other specified abnormal findings of blood chemistry Status: Acute Assessment and Plan: - Mildly elevated and trended down. - No chest pain or SOB. - Possibly reactive. - ECHO unremarkable. - Continue to trend troponin. 05/06/24: Resolved. Trop has trended down to normal. (3) Elevated LFTs: Code(s): R79.89 - Other specified abnormal findings of blood chemistry Status: Acute Assessment and Plan: - Unclear etiology and trending down. - US Abdomen RUQ negative. - Monitor trend. Continued transaminitis present, but trending downward Continue to monitor trend. Etiology unclear. Noted and reviewed normal RUQ US. (4) Bacteriuria: Code(s): R82.71 - Bacteriuria Status: Acute Assessment and Plan: --Reported dysuria early this morning - Culture not done from first UA, repeat UA/micro and culture, but has been on ceftiaxone - Ceftriaxone started 05/03--Continue for possible bacteremia - Continue IV abx for now - if repeat BC negative tomorrow- 05/05, switch IV to po antibiotics and - anticipate discharge if stable and no acute issues. 9/6/24: Blood cultures are still pending. Possible discharge on 05/07/24 if repeat are negative. Currently on Cefepime, (Was changed 05/05/24 from Rocephin) Continue to monitor labs and VS. Final urine culture is negative for growth. 05/07- Pt will need to have IV abx at discharge- Cefepime 2G Q12 hrs for 10 days upon discharge-total of 20 doses. Care Coordination was made aware and PICC line is ordered. 05/08 BC 05/04 repeat negative. Care coordination working to set up home IV infusion for cefepime. (5) Hypertension: Code(s): I10 - Essential (primary) hypertension Status: Acute Assessment and Plan: -her home BP meds were held and it had been elevated. - will restart losartan 50 mg and hold beta marlys for now 05/06/24: Pts BP has been running high on review today. I ordered her morning dose to be given early and she received PRN hydralazine given her degree of elevation. PM dose of Losartan was not re-ordered, so it is reordered at this time. Pt should be taking Losartan 50 mg in AM and 25 mg in PM. Continue to hold her Beta marlys for now. Continue to monitor VS. 05/07 remains elevated- losartan 25 mg was added yesterday- will monitor for now- might need to take 50 mg bid to ensure betetr control 05/08 160's/90's on 74 mg of losartan and nebivolol 20 mg at hs (6) Anxiety: Code(s): F41.9 - Anxiety disorder, unspecified Status: Acute Assessment and Plan: - Continue Buspirone and Xanax PRN Pt does appear anxious overall. Continue home medications. (7) Bacteremia: Code(s): R78.81 - Bacteremia Status: Acute Assessment and Plan: Blood culture 09/01 05/02 with GNB, fol
[2024-05-08] MEDS: ALPRAZolam (*CRX) 0.125 MG TABLET PO (10:06)
[2024-05-08] MEDS: CALCIUM/VITAMIN D 500 MG/5 MCG (200 I.U.) TABLET PO (10:06)
[2024-05-08] MEDS: LOSARTAN POTASSIUM 25 MG TABLET 75 MG PO (10:06)
[2024-05-08] MEDS: busPIRone HCL 10 MG TABLET PO (10:06)
[2024-05-08] MEDS: MULTIVITAMINS THERAPEUTIC TAB (*BKC) 1 TABLET PO (10:06)
[2024-05-08] MEDS: polyethylene glycoL 3350 17 GM POWD.PACK PO (14:20)
[2024-05-08] MEDS: DOCUSATE SODIUM 100 MG CAPSULE PO (14:21)
[2024-05-08] MEDS: NEBIVOLOL HCL 5 MG TABLET 20 MG PO (20:26)
[2024-05-09] VITALS (10 sets, daily range): BP systolic 118–192; BP diastolic 77–105; PULSE 53–87; RESP 12–20; TEMP 36.1–36.7; O2SAT 98–100
[2024-05-09] MEDS: SALINE LOCK FLUSH 10 ML IV PUSH ×2 (05:36→13:30)
[2024-05-09] MEDS: FLUTICASONE PROPIONATE 0.05% NA SPR 16 GM BTL (*BKC) 1 SPRAY NASAL (09:23)
[2024-05-09] MEDS: ALPRAZolam (*CRX) 0.125 MG TABLET PO (09:23)
[2024-05-09] MEDS: LOSARTAN POTASSIUM 25 MG TABLET 75 MG PO (09:23)
[2024-05-09] MEDS: MULTIVITAMINS THERAPEUTIC TAB (*BKC) 1 TABLET PO (09:23)
[2024-05-09] MEDS: CALCIUM/VITAMIN D 500 MG/5 MCG (200 I.U.) TABLET PO (09:23)
[2024-05-09] MEDS: busPIRone HCL 10 MG TABLET PO (09:24)
[2024-05-09] MEDS: CEFEPIME 2 GM/NS 50 ML 2 GM/50 ML BAG IVPB (09:24)
--- NOTE | 2024-05-09 11:27 | PM.DS ---
DS: Admitting Diagnosis Discharge Date 05/09/2024 0800 Admitting Diagnosis Syncope DS: Discharge Diagnosis Discharge Diagnosis (1) Syncope: Code(s): R55 - Syncope and collapse Status: Acute Assessment and Plan: Now bacteremic so would be at risk for arrhthmia in the setting of infection. CT head no acute findings. 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 - CTA chest negative for PE. - UA with 2+ bacteria, 6-10 WBC's otherwise fairly unremarkable for infection. - ECHO showing LVEF 60-65% with Grade I diastolic dysfunction, LV septal wall motion abnormality attributed to BBB - Maintains sinus stone on telemetry (low-mid 50's). --Treatment of bacteremia as noted -card consulted- -check orthostatics - 30 days holter monitor and outpt f/u with card. - holding beta blockers for now 05/06/24: Stable NSR on the reviewed telemetry. Holter monitor at discharge Continue to hold Beta Blockers. 05/074-[id number] 05/08- beta marlys was restarted - she get a little dizzy with position changes but no syncope - check orthostatics (2) Elevated troponin: Code(s): R79.89 - Other specified abnormal findings of blood chemistry Status: Acute Assessment and Plan: - Mildly elevated and trended down. - No chest pain or SOB. - Possibly reactive. - ECHO unremarkable. - Continue to trend troponin. 05/06/24: Resolved. Trop has trended down to normal. (3) Elevated LFTs: Code(s): R79.89 - Other specified abnormal findings of blood chemistry Status: Acute Assessment and Plan: - Unclear etiology and trending down. - US Abdomen RUQ negative. - Monitor trend. Continued transaminitis present, but trending downward Continue to monitor trend. Etiology unclear. Noted and reviewed normal RUQ US. (4) Bacteriuria: Code(s): R82.71 - Bacteriuria Status: Acute Assessment and Plan: --Reported dysuria early this morning - Culture not done from first UA, repeat UA/micro and culture, but has been on ceftiaxone - Ceftriaxone started 05/03--Continue for possible bacteremia - Continue IV abx for now - if repeat BC negative tomorrow- 05/05, switch IV to po antibiotics and - anticipate discharge if stable and no acute issues. 05/06/24: Blood cultures are still pending. Possible discharge on 05/07/24 if repeat are negative. Currently on Cefepime, (Was changed 05/05/24 from Rocephin) Continue to monitor labs and VS. Final urine culture is negative for growth. 05/07- Pt will need to have IV abx at discharge- Cefepime 2G Q12 hrs for 10 days upon discharge-total of 20 doses. Care Coordination was made aware and PICC line is ordered. 05/08 BC 05/04 repeat negative. Care coordination working to set up home IV infusion for cefepime. (5) Hypertension: Code(s): I10 - Essential (primary) hypertension Status: Acute Assessment and Plan: -her home BP meds were held and it had been elevated. - will restart losartan 50 mg and hold beta marlys for now 05/06/24: Pts BP has been running high on review today. I ordered her morning dose to be given early and she received PRN hydralazine given her degree of elevation. PM dose of Losartan was not re-ordered, so it is reordered at this time. Pt should be taking Losartan 50 mg in AM and 25 mg in PM. Continue to hold her Beta marlys for now. Continue to monitor VS. 05/07 remains elevated- losartan 25 mg was added yesterday- will monitor for now- might need to take 50 mg bid to ensure betetr control 05/08 160's/90's on 74 mg of losartan and nebivolol 20 mg at hs (6) Anxiety: Code(s): F41.9 - Anxiety disorder, unspecified Status: Acute Assessment and Plan: - Continue Buspirone and Xanax PRN Pt does appear anxious overall. Continue home medications. (7) Bacteremia: Code(s): R78.81 - Ba
== END 2024-05-09 14:35 | disposition home health service (06) | DRG 872 ==
LOC: ANHED 12:50 → ANHIMU 16:23 → ANH2MED 05-03 11:52
PROVIDERS: Nurse Practitioner Acute Care; Nurse Practitioner Adult Health; Physician Assistant; Student in an Organized Health Care Education/Training Program; Admitting Provider Hospitalist; Emergency Provider Physician Assistant; PCP Family Medicine; Visit Provider Nurse Practitioner
DX: R78.81 Bacteremia (principal); R55 Syncope and collapse; R82.71 Bacteriuria; R79.89 Other specified abnormal findings of blood chemistry; B96.5 Pseudomonas (aeruginosa) (mallei) (pseudomallei) as the cause of diseases classified elsewhere; I10 Essential (primary) hypertension; E78.00 Pure hypercholesterolemia, unspecified; M81.0 Age-related osteoporosis without current pathological fracture; H81.10 Benign paroxysmal vertigo, unspecified ear; F41.9 Anxiety disorder, unspecified; Z20.822 Contact with and (suspected) exposure to COVID-19
CPT/HCPCS: 36415; 36569; 70450; 71046; 71275; 73070; 76705; 80053; 80074; 81001; 81003; 82550; 83605; 83735; 83880; 84100; 84145; 84443; 84484; 85025; 85055; 85380; 85610; 85730; 86140; 87040; 87077; 87086; 87088; 87186; 87637; 93005; 93306; 93970; 96365; 97161; 99285; A9270; G0378; J0360; J0692; J0696; Q9967

== ENCOUNTER 2024-05-12 11:28 | Outpatient (RCR) | payer MEDICARE, SELFPAY ==
[2024-05-12 12:26] LABS: Basophils Percent Auto 0.7 % (0.2-1.2); Eosinophils Absolute Auto 0.1 K/mm3 (0-0.3); Eosinophils Percent Auto 1.5 % (0-4.4); Hematocrit 39.5 % (37.0-47.0); Hemoglobin 13.4 g/dL (12.0-15.0); Immature Granulocyte Absolute 0.02 K/mm3 (0.00-0.031); Immature Granulocyte Percent A 0.3 % (0-0.5); Lymphocytes Absolute Auto 0.99 K/mm3 (0.9-3.2); Lymphocytes Percent Auto 16.1 % (18.3-44.2); Mean Corpuscular HGB Conc 33.9 g/dl (32-36); Mean Corpuscular Hemoglobin 31.5 pg (26-34); Mean Corpuscular Volume 92.9 fl (80-100); Mean Platelet Volume 10.4 fl (7.4-10.4); Monocytes Absolute Auto 0.4 K/mm3 (0.1-0.6); Monocytes Percent Auto 5.7 % (2.6-8.5); Neutrophils Absolute Auto 4.7 K/mm3 (1.3-6.7); Neutrophils Percent Auto 75.7 % (45.5-73.1); Platelet Count Result 334 k/mm3 (150-375); Red Blood Count 4.25 M/mm3 (4.2-5.4); Red Cell Distribution Width 14.4 % (11.5-14.5); White Blood Count 6.1 K/mm3 (4.5-10.0)
[2024-05-12 12:42] LABS: Anion Gap 11 mmol/L (4-12); Blood Urea Nitrogen 20 mg/dL (7-17); Calcium 9.4 mg/dL (8.4-10.2); Carbon Dioxide 25 mmol/L (22-30); Chloride 102 mmol/L (98-107); Estimated Glomerular Filt Rate > 60; Glucose 99 mg/dL (65-110); Potassium 3.9 mmol/L (3.4-5.0); Sodium 138 mmol/L (137-145)
[2024-05-12 13:02] LABS: CRP < 0.5 mg/dL (<1.0)
== END 2024-05-12 11:29 | disposition home or self-care (01) ==
LOC: HOME HLTH 11:28
PROVIDERS: PCP Family Medicine; Visit Provider Family Medicine
DX: N39.0 Urinary tract infection, site not specified (principal); R82.71 Bacteriuria
CPT/HCPCS: 80048; 85025; 86140

== ENCOUNTER 2024-05-13 08:53 | Emergency (ER) | payer MEDICARE, SELFPAY ==
--- NOTE | 2024-05-13 09:19 | ED.GENADULT ---
HPI - General Adult General Chief complaint: Unspecified Stated complaint: has a blood clot in midline Time Seen by Provider: 05/13/24 09:01 Source: patient, family and old records reviewed Mode of arrival: ambulatory Limitations: no limitations History of Present Illness HPI narrative: Patient is an 83 y/o female who presents to the ED with c/o clogged midline catheter. Patient was recently admitted here from 05/02-05/09 s/p syncopal episode. Was found to be bacteremic with pseudomonas. Had a midline catheter placed in her right upper extremity on Thursday. Has been receiving cefepime infusions at home with the help of her daughter. Daughter reports she had trouble flushing or infusing any medications throughout the midline since last night. It reportedly worked appropriately yesterday morning. Was unable to receive her abx dose last night. Home health attempted to flush but was unable to, as well. Was referred to the ED for further evaluation. Patient denies any pain or swelling in her R arm. Denies fevers. Related Data Home Medications Medication Instructions Recorded Confirmed fluticasone propionate 50 1 spray intranasal DAILY PRN 08/10/19 05/02/24 mcg/actuation nasal Allergy Symptoms spray,suspension (Allergy Relief (fluticasone)) nebivolol 20 mg tablet (Bystolic) 20 mg PO HS 08/10/19 05/02/24 cranberry 500 mg capsule 400 mg PO BID 03/07/20 05/02/24 multivitamin 1 tablet PO DAILY 03/07/20 05/02/24 calcium citrate malate-vitamin D3 200 tablet PO DAILY 04/26/23 05/02/24 500 mg-200 unit tablet Bifidobacterium infantis 4 mg 4 mg PO DAILY 05/02/24 05/02/24 capsule (Align) estradiol 0.01% (0.1 mg/gram) 1 g vaginal 4XW 05/02/24 05/02/24 vaginal cream (Estrace) losartan 25 mg tablet 25 mg PO HS 05/02/24 05/02/24 Allergies Allergy/AdvReac Type Severity Reaction Status Date / Time codeine Allergy Unknown Unknown,Diz Unverified 05/13/24 08:54 ziness levocetirizine Allergy Unknown Unknown,Diz Unverified 05/13/24 08:54 ziness levofloxacin Allergy Unknown Unknown,Diz Unverified 05/13/24 08:54 ziness miconazole Allergy Unknown Unknown,Diz Unverified 05/13/24 08:54 ziness nitrofurantoin Allergy Unknown Unknown,Diz Unverified 05/13/24 08:54 ziness Penicillins Allergy Unknown Unknown,Diz Unverified 05/13/24 08:54 ziness Sulfa (Sulfonamide Allergy Unknown Unknown,Diz Unverified 05/13/24 08:54 Antibiotics) ziness Xyzal Allergy Unknown Unverified 05/09/24 11:52 epinephrine AdvReac Intermediate Dizziness Verified 05/13/24 08:54 lidocaine AdvReac Intermediate Dizziness Verified 05/13/24 08:54 skin cleanser combination AdvReac Intermediate Dizziness Verified 05/13/24 08:54 no.17 skin cleanser combination Allergy Unknown Unknown,Diz Uncoded 05/13/24 08:54 no.17 ziness halex AdvReac Intermediate Dizziness Uncoded 05/13/24 08:54 nalex AdvReac Intermediate Dizziness Uncoded 05/13/24 08:54 Review of Systems Review of Systems: All systems reviewed & are unremarkable except as noted in HPI. All systems reviewed & are unremarkable except as noted in HPI and below PMFSH Past Medical History Medical History Anxiety Arthritis Fracture of proximal end of left humerus (04/26/23) Hypercholesterolemia Hypertension Impaired fasting glucose Osteoporosis Surgical History Surgical History History of appendectomy History of bilateral cataract extraction History of cholecystectomy History of hysterectomy History of tonsillectomy Status post cataract extraction Family History Family History Father Leukemia Mother CHF (congestive heart failure) Other Thyroid disorder Social History Social History Social History: Surrogate medical decision ma
[2024-05-13 09:30] VITALS: BP 151/89; PULSE 79; RESP 18; TEMP 36.6; O2SAT 100
[2024-05-13] MEDS: CEFEPIME 2 GM/NS 50 ML 2 GM/50 ML BAG IVPB (10:03)
[2024-05-13 10:18] VITALS: BP 120/68; PULSE 82; RESP 18; TEMP 36.6; O2SAT 97
--- NOTE | 2024-05-13 10:38 | PC.NURSE ---
Assessed patients midline that was not flushing. I flushed the line with meeting resistance initially. I was able to flush past the resistance and at that point the midline flushed very easily. Dressing changed as well. Patients morning antibiotic was given and administered without difficulty.
== END 2024-05-13 10:29 | disposition home or self-care (01) ==
PROVIDERS: Emergency Provider Physician Assistant; PCP Family Medicine
DX: T82.594A Other mechanical complication of infusion catheter, initial encounter (principal); R78.81 Bacteremia; B96.5 Pseudomonas (aeruginosa) (mallei) (pseudomallei) as the cause of diseases classified elsewhere; I10 Essential (primary) hypertension; E78.00 Pure hypercholesterolemia, unspecified; M19.90 Unspecified osteoarthritis, unspecified site; M81.0 Age-related osteoporosis without current pathological fracture; Z98.42 Cataract extraction status, left eye; Z98.41 Cataract extraction status, right eye; Z90.49 Acquired absence of other specified parts of digestive tract; Z90.710 Acquired absence of both cervix and uterus; Y84.8 Other medical procedures as the cause of abnormal reaction of the patient, or of later complication, without mention of misadventure at the time of the procedure
CPT/HCPCS: 96374; 99284; J0692

== ENCOUNTER 2024-05-25 14:09 | Outpatient (CLI) | payer MEDICARE, SELFPAY ==
[2024-05-25 14:36] LABS: Basophils Percent Auto 0.4 % (0.2-1.2); Eosinophils Absolute Auto 0.1 K/mm3 (0-0.3); Eosinophils Percent Auto 0.9 % (0-4.4); Hematocrit 41.5 % (37.0-47.0); Hemoglobin 13.7 g/dL (12.0-15.0); Immature Granulocyte Absolute 0.02 K/mm3 (0.00-0.031); Immature Granulocyte Percent A 0.3 % (0-0.5); Lymphocytes Absolute Auto 1.32 K/mm3 (0.9-3.2); Lymphocytes Percent Auto 17.2 % (18.3-44.2); Mean Corpuscular Hemoglobin 31.1 pg (26-34); Mean Corpuscular Volume 94.1 fl (80-100); Mean Platelet Volume 9.8 fl (7.4-10.4); Monocytes Absolute Auto 0.4 K/mm3 (0.1-0.6); Neutrophils Absolute Auto 5.8 K/mm3 (1.3-6.7); Neutrophils Percent Auto 76.2 % (45.5-73.1); Platelet Count Result 231 k/mm3 (150-375); Red Blood Count 4.41 M/mm3 (4.2-5.4); Red Cell Distribution Width 14.7 % (11.5-14.5); White Blood Count 7.7 K/mm3 (4.5-10.0)
[2024-05-25 14:41] LABS: Alanine Aminotransferase 24 U/L (6-35); Albumin Level 4.3 g/dL (3.5-5.1); Alkaline Phosphatase 147 U/L (38-126); Anion Gap 7 mmol/L (4-12); Aspartate Amino Transferase 36 U/L (14-36); Bilirubin,Total 0.5 mg/dL (0.2-1.3); Blood Urea Nitrogen 21 mg/dL (7-17); Calcium 9.3 mg/dL (8.4-10.2); Carbon Dioxide 31 mmol/L (22-30); Chloride 101 mmol/L (98-107); Estimated Glomerular Filt Rate > 60; Glucose 94 mg/dL (65-110); Sodium 139 mmol/L (137-145)
== END 2024-05-25 14:10 | disposition home or self-care (01) ==
PROVIDERS: PCP Family Medicine; Visit Provider Physician Assistant
DX: R19.7 Diarrhea, unspecified (principal); R79.89 Other specified abnormal findings of blood chemistry
CPT/HCPCS: 36415; 80053; 85025

== ENCOUNTER 2024-05-30 08:31 | Outpatient (NON) | payer MEDICARE, SELFPAY | END 2024-05-30 08:32 | disposition home or self-care (01) | PROVIDERS: PCP Family Medicine; Visit Provider Physician Assistant | DX: R19.7 Diarrhea, unspecified (principal) | CPT/HCPCS: 87045; 87427; 87449 ==

== ENCOUNTER 2024-08-23 10:50 | Outpatient (CLI) | payer MEDICARE, SELFPAY ==
--- NOTE | ~2024-08-23 | MM_ITS ---
EXAMINATION: MM screening [facility] BI w [facility] HISTORY: Screening TECHNIQUE: Craniocaudal and mediolateral oblique 3-D tomosynthesis images were obtained and synthetic 2-D images were generated. CAD analysis was submitted and interpreted. COMPARISON: 08/21/2023 and 08/15/2022 BREAST PARENCHYMAL COMPOSITION: There are scattered areas of fibroglandular density. FINDINGS: Punctate calcification within the left areola, stable and benign in appearance. Otherwise stable parenchymal pattern without suspicious microcalcifications, architectural distortion , discrete masses or significant asymmetry. IMPRESSION: 1. No mammographic evidence of malignancy. 2. Recommend routine screening mammography in one year. BI-RADS Category 2: Benign finding(s). Reviewed, dictated and finalized at location A. IDER RELATIONS CONSULTANT
== END 2024-08-23 10:51 | disposition home or self-care (01) ==
PROVIDERS: PCP Family Medicine; Visit Provider Physician Assistant
DX: Z12.31 Encounter for screening mammogram for malignant neoplasm of breast (principal)
CPT/HCPCS: 77063; 77067

== ENCOUNTER 2024-09-08 09:57 | Outpatient (CLI) | payer MEDICARE, SELFPAY ==
[2024-09-08 10:44] LABS: Basophils Absolute Auto 0.1 K/mm3 (0.0-0.1); Basophils Percent Auto 0.9 % (0.2-1.2); Eosinophils Absolute Auto 0.2 K/mm3 (0-0.3); Hemoglobin 14.6 g/dL (12.0-15.0); Immature Granulocyte Absolute 0.01 K/mm3 (0.00-0.031); Immature Granulocyte Percent A 0.2 % (0-0.5); Lymphocytes Absolute Auto 1.67 K/mm3 (0.9-3.2); Lymphocytes Percent Auto 31.3 % (18.3-44.2); Mean Corpuscular HGB Conc 33.2 g/dl (32-36); Mean Corpuscular Hemoglobin 30.2 pg (26-34); Mean Corpuscular Volume 90.9 fl (80-100); Monocytes Absolute Auto 0.3 K/mm3 (0.1-0.6); Monocytes Percent Auto 6.2 % (2.6-8.5); Neutrophils Absolute Auto 3.1 K/mm3 (1.3-6.7); Neutrophils Percent Auto 58.4 % (45.5-73.1); Platelet Count Result 201 k/mm3 (150-375); Red Blood Count 4.84 M/mm3 (4.2-5.4); Red Cell Distribution Width 13.6 % (11.5-14.5); White Blood Count 5.3 K/mm3 (4.5-10.0)
[2024-09-08 11:19] LABS: Vitamin D 25 Hydroxy 56.4 ng/mL
[2024-09-08 14:03] LABS: Alanine Aminotransferase 19 U/L (6-35); Albumin Level 4.1 g/dL (3.5-5.1); Alkaline Phosphatase 124 U/L (38-126); Anion Gap 9 mmol/L (4-12); Aspartate Amino Transferase 36 U/L (14-36); Bilirubin,Total 0.9 mg/dL (0.2-1.3); Blood Urea Nitrogen 19 mg/dL (7-17); Calcium 9.3 mg/dL (8.4-10.2); Carbon Dioxide 27 mmol/L (22-30); Chloride 104 mmol/L (98-107); Estimated Glomerular Filt Rate > 60; Glucose 104 mg/dL (65-110); Potassium 4.1 mmol/L (3.4-5.0); Sodium 140 mmol/L (137-145)
== END 2024-09-08 09:58 | disposition home or self-care (01) ==
LOC: ANHLAB 09:57
PROVIDERS: PCP Family Medicine; Visit Provider Physician Assistant
DX: D72.819 Decreased white blood cell count, unspecified (principal); E55.9 Vitamin D deficiency, unspecified; I10 Essential (primary) hypertension
CPT/HCPCS: 36415; 80053; 82306; 85025

== ENCOUNTER 2025-02-15 14:05 | Outpatient (CLI) | payer MEDICARE, SELFPAY ==
--- NOTE | ~2025-02-15 | DEXA_ITS ---
Bone Density Report Name: DANILO PATTERSON Age: 84 Sex: Female Ethnicity: White Date of : 1940 Indication: postmenopausal; screening for osteoporosis; height loss; hysterectomy; Referring Provider: CEDRIC SOUTH Study: Bone densitometry was performed. Exam Date: February 15, 2025 Accession number: [id number] Bone Density: Region BMD T-score Z-score Classification AP Spine(L1-L4) 0.857 -1.7 1.1 Osteopenia Femoral Neck (Left) 0.610 -2.1 0.3 Osteopenia Total Hip (Left) 0.813 -1.1 1.2 Osteopenia Femoral Neck (Right) 0.565 -2.6 -0.1 Osteoporosis Total Hip (Right) 0.686 -2.1 0.2 Osteopenia Total Hip Mean 0.750 -1.6 0.7 Osteopenia World Health Organization criteria for BMD impression classify patients as: Normal (T-score at or above -1.0), Osteopenia (T-score between -1.0 and -2.5), or Osteoporosis (T-score at or below -2.5). 10-year Fracture Risk: FRAX not reported because: Some T-score for Spine Total or Hip Total or Femoral Neck at or below -2.5 Clinical Information Provided by Patient: Has used the following medications: Vitamin D, Calcium Has the following medical conditions: Hysterectomy Patient maximum height was 64.5 Menopause Age: 55 Onset of menses at age 12 Number of children 2 Impression: The patient has osteoporosis, based on the Right Femoral Neck T-score. Discussion: INCREASED RISK OF FRACTURE. BONE DENSITY IS UNDESIRABLY LOW AT ONE OR MORE SKELETAL SITES, CONSISTENT WITH POSTMENOPAUSAL OSTEOPOROSIS. This patient's lowest T-score meets the World Health Organization's (WHO) criteria for osteoporosis at one or more sites (T-score -2.5 or below). In untreated patients, the risk of osteoporotic fracture increases approximately two-fold for each 1.0 SD decrease in T-score. Low bone density is not the only risk factor for fracture; also consider factors such as patient's age, frailty or poor health, risk of falling, risk of injury, previous osteoporotic fracture, family history of osteoporosis, cigarette smoking, low body weight, etc. Not everyone with low bone mineral density has osteoporosis; osteomalacia and other metabolic bone disorders should also be considered. Patients who have osteoporosis should be evaluated for specific diseases and conditions (secondary causes) that may cause or contribute to bone loss. The [place] [employer] Endocrinologists (AACE) and National Osteoporosis Foundation (NOF) recommend pharmacologic intervention for all postmenopausal women whose T-score is in this range. The patient should follow a healthful lifestyle (good nutrition with adequate calcium and vitamin D, and appropriate weight-bearing exercise). Follow-Up: Consider a repeat BMD and Vertebral Fracture Assessment (VFA) exam in 2 years or sooner if medically necessary, to reassess this patient's status. Reported by: CATALINA on 02/15/2025 2:53:00 PM. Reviewed, dictated and finalized at location A.
--- OUTSIDE RECORDS SUMMARY | 2025-02-15 15:56 | XMS_ITS | Referral Summary ---
Author Organization [facility] [address] Address [address] [place] [address] Care Team Providers Care Warp Worker Name Role Phone Gary Pulliam MD Primary Care Provider Gary Pulliam MD Unavailable [phone] Encounters Date Type Department Care Team Description 01/26/2025 Orders Only [facility] [address] [place] [address] Unknown, Notinfile from Last 3 Months Allergies Active Allergy Reactions Criticality Noted Date Comments Codeine Unknown 11/11/2019 Epinephrine Unknown 07/16/2021 Levocetirizine Dihydrochloride Unknown Levofloxacin Unknown 05/17/2012 Lidocaine Unknown 07/16/2021 Nitrofurantoin Unknown 05/17/2012 Penicillins Unknown 05/17/2012 Sulfa (Sulfonamide Antibiotics) Unknown macrobid Tioconazole Unknown 02/03/2013 Levocetirizine Unknown 07/16/2021 Medications ALPRAZolam (XANAX) 0.25 mg tablet take 1 tablet (0.25MG) by oral route every day as needed 0 3 Active Additional Information Patient taking differently: 0.125 mg oral Daily, Informant: Self, Reported on 09/12/2024 mometasone (NASONEX) 50 mcg/actuation nasal spray spray 2 spray by intranasal route every day in each nostril 0 spray 0 4 Active cholecalciferol (cholecalciferol ) 1,000 unit tablet take 1 by Oral route once 0 0 4 Active multivitamin tablet tablet take 1 by Oral route once 0 0 4 Active estradiol (ESTRACE) 0.01 % (0.1 mg/gram) vaginal cream Insert 2 g into the vagina daily Active psyllium, aspartame, SF (METAMUCIL SF) 3.4 gram packet Take 1 packet by mouth daily Active cranberry 400 mg capsule Take by mouth. Activ e docusate sodium (COLACE) 100 mg capsuleIndicatio ns:constipation Take 1 capsule (100 mg total) by mouth 2 (two) times a day Active calcium citrate-vitamin D3 200 mg calcium -250 unit tablet 1 tablet Active triamcinolone (KENALOG) 0.1 % cream 0 Active Bifidobacterium infantis (ALIGN) 4 mg capsule 1 capsule (4 mg total) Active busPIRone (BUSPAR) 10 mg tablet Take 1 tablet (10 mg total) by mouth 4 Active losartan (COZAAR) 25 mg tabletIndication s:Essential hypertension Take 1 tablet (25 mg total) by mouth daily Take in addition to 50 mg tablet for total daily dose 75 mg 90 tablet 3 4 Active losartan (COZAAR) 50 mg tablet Take 1 tablet (50 mg total) by mouth daily 90 tablet 3 5 Active Active Problems Problem Noted Date Diagnosed Date 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 premature complexes 06/25/2017 Essential hypertension 06/25/2017 Social History Tobacco Use Types Packs/Day Years Used Date Smoking Tobacco: Never Smokeless Tobacco: Never Tobacco Cessation:Counseling Given: Not Answered Alcohol Use Standard Drinks/Week Comments No 0 (1 standard drink = 0.6 oz pur e alcohol) Comments Unknown Sex and Gender Information Value Date Recorded Sex Assigned at Not on file Legal Sex Female 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 AM 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 Gender Identity Not on file Sexual Orientation Not on file Last Filed Vital Signs Vital Sign Reading Time Taken Comments Blood Pressure 192/104 09/12/2024 1:33 PM 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 Pulse 100 09/12/2024 1:33 PM 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 Temperature - - Respiratory Rate 14 06/25/2017 1:05 PM CDT Oxygen Saturation 98% 09/12/2024 1:33 PM 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 Inhaled Oxygen Concentration - - Weight 51.9 kg (114 lb 8 oz) 09/12/2024 1:33 PM 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 Height 162.6 cm (5' 4) 09/12/2024 1:33 PM 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 Body Mass Index 19.65 09/12/2024 1:33 PM 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 Plan of Treatment Not on file Procedures Procedure Name Priority Date/Time Associated Diagnosis Comments SURGICAL PATHOLOGY Routine 01/26/2025 3: 00 PM CDT from Last 3 Months Results * Surgical pathology (01/26/2025 3:00 PM CDT) Skin, shave biopsy 01/26/2025 3:00 PM CDT 01/27/2025 8:07 AM CDT Narrative 01/30/2025 2:02 PM CDT EPIC results best viewed via link to PDF [facility] [address] [place] [address], [address], [place] [address] [email or web address] Note to Patients: This report may contain a detailed description of human tissue sent by a health care provider to the laboratory for pathologic evaluation. The content of this report is essential for diagnosis and may provide important critical findings. This information may be unfamiliar to patients to review without a medical professional present. It is advised that the patient review this report in the presence of a health care provider who can answer questions and explain the details. FINAL REPORT Patient Information: PATIENT NAME: DANILO BERGER SEX: F : 1940 (Age: 84) Specimen Information: COLLECTED: 01/26/2025 RECEIVED: 01/27/2025 REPORTED: 01/30/2025 Submitting Physician Information: Tiffanie Engel [facility], [address] [place] [address], DERMATOPATHOLOGY REPORT RESULTS DIAGNOSIS: SKIN, RIGHT INFERIOR MEDIAL FOREHEAD, SHAVE BIOPSY: FOLLICULAR CYST, INFUNDIBULAR TYPE, RUPTURED dh/ajrr By this signature, I attest that the above diagnosis is based upon my personal examination of the slides(and/or other material indicated in the diagnosis). Gen Christensen M.D. Report Electronically Reviewed and Signed Out By Gen Christensen M.D. 01/30/2025 14:02:32 CLINICAL INFORMATION NEOPLASM OF UNCERTAIN BEHAVIOR SPECIMEN DATA MICROSCOPIC DESCRIPTION: There is a cyst lined by infundibular-type epithelium and filled with orthokeratotic cells which is surrounded by a dense mixed inflammatory cell infiltrate that contains numerous neutrophils and histiocytes, many of which are multinucleated. (L72.0) GROSS DESCRIPTION: Received in a formalin-containing bottle is a superficial fragment of pale carrion, finely scaling and hair-bearing skin measuring 0.7 by 0.6 by 0.1 cm. The surgical margin is inked blue. The specimen bears a centrally located, carrion-yellow, scaly area measuring 0.3 by 0.3 cm. The specimen is sectioned into 2 pieces and submitted entirely in a single cassette. Also within the bottle is a superficial fragment of carrion-merritt, variegated, scaly and hair-bearing skin measuring 0.9 by 0.6 by 0.1 cm. The surgical margin is inked blue. The specimen is sectioned into 2 pieces and submitted entirely in a single cassette. Due to shrinkage, measurements may be different than those at time of procedure. dh/mxf ICD-9 A; ZSD.657 Clerical Data A; 03247 The characteristics of special, immunohistochemical, and immunofluorescence stains and in-situ hybridization tests performed by the [facility] were deemed acceptable in ongoing quality eng measures and in compliance with regulations drawn from the Clinical Laboratory Improvement Act wa8249 (CLIA '88). Control reactions for all stains performed were deemed adequate and appropriate by a pathologist prior to evaluation of patient tissue. Some diagnoses were rendered with the assistance of laboratory-developed tests utilizing analyte-specific reagents; the performance characteristic of these tests were determined by [facility] and are not cleared or approved by the [place] Food an Drug administration. Laboratory developed test may only be performed in a facility that is certified by the [facility] as a high-complexity laboratory under CLIA '88. These tests are used for clinical purposes and are not investigational. us Notinfile Unknown LAB PATHOLOGY ORDERABLES Final Result from Last 3 Months Insurance [facility] MEDICARE [facility] MEDICARE Care Teams Warp Worker Relationship Specialty Start Date End Date Gary Pulliam MD [address] [place] [address] PCP - General Family Medicine 06/25/17 Gary Pulliam MD [address] [place] [address] Family Medicine 06/25/17
--- OUTSIDE RECORDS SUMMARY | 2025-02-15 15:56 | XMS_ITS | Clinical Summary ---
Author Organization [facility] Address [address] [place] [address] Care Team Providers Care Class A Lineman Name Role Phone Gary Pulliam MD Primary Care Provider [phone] Allergies Active Allergy Reactions Criticality Noted Date Comments Codeine Unknown 11/11/2019 Levofloxacin Unknown 05/17/2012 Nitrofurantoin Unknown 05/17/2012 Penicillins Unknown 05/17/2012 Sulfa Antibiotics Unknown 02/03/2013 Tioconazole Unknown 02/03/2013 Medications valsartan (DIOVAN) 160 MG tablet Take 1 tablet by mouth daily. Active psyllium (METAMUCIL FIBER) 51.7 % packet Take 1 packet by mouth daily. Active psyllium (METAMUCIL) 0.52 g capsule Activ e nebivolol (BYSTOLIC) 20 MG tablet Take 20 mg by mouth daily. 07/14/2019 Active Multiple Vitamin (MULTI-VITAMIN) tablet Take 1 tablet by mouth daily. Active losartan 50 MG tablet 09/01/2019 Active fluticasone propionate 50 MCG/ACT nasal spray 05/20/2012 Active fexofenadine 60 MG tablet Take 1 tablet by mouth daily. Active esomeprazole (NEXIUM) 40 MG capsule Take 1 capsule by mouth daily. 01/12/2014 Active ALPRAZolam 0.25 MG tablet 0.25 mg. 02/01/2013 Active Active Problems No known active problems Family History Medical History Relation Comments Breast Cancer Neg Hx Social History Tobacco Use Types Packs/Day Years Used Date Smoking Tobacco: Never Smokeless Tobacco: Never Comments Unknown Sex and Gender Information Value Date Recorded Sex Assigned at Not on file Legal Sex Female 7:50 PM CDT Gender Identity Not on file Sexual Orientation Not on file Last Filed Vital Signs Vital Sign Reading Time Taken Comments Blood Pressure 126/78 11/11/2019 3:06 PM CDT Pulse 76 11/11/2019 3:06 PM CDT Temperature - - Respiratory Rate 18 11/11/2019 3:06 PM CDT Oxygen Saturation 98% 11/11/2019 3:06 PM CDT Inhaled Oxygen Concentration - - Weight 49 kg (108 lb) 11/11/2019 3:06 PM CDT Height 162.6 cm (5' 4) 01/12/2014 3:21 PM CDT Body Mass Index 18.54 01/12/2014 3:21 PM CDT Plan of Treatment Health Maintenance Due Date Last Done Comments DTaP, Tdap and Td Vaccines ( 1 - Tdap) 12/21/1959 Zoster Vaccines (1 of 2) 1990 Annual Medicare Wellness Visit 2005 Pneumococcal Vaccine: 50+ Years (2 of 2 - PCV) 06/06/2014 06/06/2013 RSV Immunization or 60+ Years (1 - 1-dose 75+ series) 12/21/2015 COVID-19 Vaccine ( - 2023-2 5 season) 2024 Dexa Scan (General) Completed 08/15/2022, 08/10/2020 Meningococcal B Vaccine Aged Out No l onger eligible based on patient's age to complete this topic Meningococcal Vaccine Aged Out No dre charan eligible based on patient's age to complete this topic RSV Immunizations Under 20 Months Aged Out No longer eligible b ased on patient's age to complete this topic Procedures Procedure Name Priority Date/Time Associated Diagnosis Comments BONE DENSITY/DEXA Routine 08/15/2022 10: 04 AM AIRCRAFT ENGINE TECHNICIAN Asymptomatic menopausal state from Last 3 Months or Most Recently Relevant to Health Maintenance Results * BONE DENSITY/DEXA (08/15/2022 10:04 AM AIRCRAFT ENGINE TECHNICIAN) Anatomical Region Laterality Modality Bone Bone Density 08/15/2022 11:0 3 AM AIRCRAFT ENGINE TECHNICIAN Narrative 08/15/2022 11:05 AM AIRCRAFT ENGINE TECHNICIAN Fracture IMAGING STUDIES: BONE DENSITY/DEXA DATE: 08/15/2022 9:55 AM CLINICAL HISTORY: Postmenopausal. On calcium replacement therapy. 81-year-old female with menopause at age 50. FINDINGS: LUMBAR SPINE L2-L4: BMD: 1.021 g/sq cm T-SCORE: -0.5 WHO CLASSIFICATION: Normal young adult range FRACTURE RISK: Very low LEFT FEMORAL NECK: BMD: 0.603 T-SCORE: -2.2 WHO CLASSIFICATION: Very osteopenic FRACTURE RISK: Low COMPARISON STUDY: 08/10/2020. LUMBAR SPINE L2-L4: BMD: 0.975 T-SCORE: -0.9 WHO CLASSIFICATION: Normal young adult range FRACTURE RISK: Very low LEFT FEMORAL NECK: BMD: 0.634 T-SCORE: -1.9 WHO CLASSIFICATION: Moderate osteopenia FRACTURE RISK: Very low Recommendation. Continuation of calcium replacement therapy with repeat imaging in 2 years Ordered By: POP SPANN Interpreted By: Tonya Randall, 08/15/2022 11:03 AM Procedure Note Sebastien Randall MD - 08/15/2022 Fracture IMAGING STUDIES: BONE DENSITY/DEXA DATE: 08/15/2022 9:55 AM CLINICAL HISTORY: Postmenopausal. On calcium replacement therapy.81-year-old female with menopause at age 50. FINDINGS: LUMBAR SPINE L2-L4: BMD: 1.021 g/sq cm T-SCORE: -0.5 WHO CLASSIFICATION: Normal young adult range FRACTURE RISK: Very low LEFT FEMORAL NECK: BMD: 0.603 T-SCORE: -2.2 WHO CLASSIFICATION: Very osteopenic FRACTURE RISK: Low COMPARISON STUDY: 08/10/2020. LUMBAR SPINE L2-L4: BMD: 0.975 T-SCORE: -0.9 WHO CLASSIFICATION: Normal young adult range FRACTURE RISK: Very low LEFT FEMORAL NECK: BMD: 0.634 T-SCORE: -1.9 WHO CLASSIFICATION: Moderate osteopenia FRACTURE RISK: Very low Recommendation. Continuation of calcium replacement therapy with repeatimaging in 2 years Ordered By: POP SPANN Interpreted By: Tonya Randall, 08/15/2022 11:03 AM us Pop NORMAN DEXA Final Resu lt from Last 3 Months or Most Recently Relevant to Health [place] [address] [employer] Care Teams Class A Lineman Relationship Specialty Start Date End Date Gary Pulliam MD [address] [place], [place] [id number] PCP - General FAMILY PRACTICE 06/15/19
--- OUTSIDE RECORDS SUMMARY | 2025-02-15 15:56 | XMS_ITS | Clinical Summary ---
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 Essential hypertension 06/25/2017 Encounters Date Type Department Care Team Description 01/26/2025 Orders Only [facility] [address] [place] [address] Unknown, Notinfile from Last 3 Months Surgical History Surgery Date Site/Laterality Comments HYSTERECTOMY KNEE SURGERY 08/31/2003 - 08/30/2004 BLADDER SURGERY 08/31/2007 - 08/30/2008 Medical History Medical History Date Comments Hx Other Medical Chronic Anxiety Hypertension Hypertension Social History Tobacco Use Types Packs/Day Years Used Date Smoking Tobacco: Never Smokeless Tobacco: Never Tobacco Cessation:Counseling Given: Not Answered Alcohol Use Standard Drinks/Week Comments No 0 (1 standard drink = 0.6 oz pur e alcohol) Comments Unknown Sex and Gender Information Value Date Recorded Sex Assigned at Not on file 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[employer] Gender Identity Not on file Sexual Orientation Not on file Obstetrics History Last Filed Vital Signs Vital Sign Reading Time Taken Comments Blood Pressure 192/104 09/12/2024 1:33 PM 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[employer] Pulse 100 09/12/2024 1:33 PM 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[employer] Temperature - - Respiratory Rate 14 06/25/2017 1:05 PM CDT Oxygen Saturation 98% 09/12/2024 1:33 PM 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 WORKER Inhaled Oxygen Concentration - - Weight 51.9 kg (114 lb 8 oz) 09/12/2024 1:33 PM ROCK WORKER Height 162.6 cm (5' 4) 09/12/2024 1:33 PM ROCK WORKER Body Mass Index 19.65 09/12/2024 1:33 PM ROCK WORKER Plan of Treatment Health Maintenance Due Date Last Done Comments Depression Screening 1940 Fall Risk Assessment 1940 Hepatitis B Screening 1958 Pneumococcal vaccine 65+ (1 of 1 - PCV) 1990 Well Visit 65+ 2005 Zoster Vaccine (2 of 2) 04/04/2024 02/08/2024 Osteoporosis Screening-Bone Density Scan 08/15/2024 08/15/2022, 08/10/2020 Influenza Vaccine (Season Ended) 2025 05/12/20 19, 05/18/2018 DTaP/Tdap/Td Vaccine (2 - Td or Tdap) 05/12/202807/2018 Procedures Procedure Name Priority Date/Time Associated Diagnosis Comments SURGICAL PATHOLOGY Routine 01/26/2025 3: 00 PM CDT from Last 3 Months Results * Surgical pathology (01/26/2025 3:00 PM CDT) Skin, shave biopsy 01/26/2025 3:00 PM CDT 01/27/2025 8:07 AM CDT Narrative 01/30/2025 2:02 PM CDT EPIC results best viewed via link to PDF [facility] [address] [place] [address], [address], [place] [address] [email or web address] Note to Patients: This report may contain [...] 01/27/2025 REPORTED: 01/30/2025 Submitting Physician Information: Tiffanie Engel, [facility], [address] [place] [address], DERMATOPATHOLOGY REPORT RESULTS DIAGNOSIS: SKIN, RIGHT INFERIOR [...] dh/mxf ICD-9 A; ZSD.657 Clerical Data A; 75400 The characteristics of special, immunohistochemical, and immunofluorescence stains and in-situ hybridization tests performed by the [facility] were deemed acceptable in ongoing quality management coordinator measures and in compliance with regulations drawn from the Clinical Laboratory Improvement Act [id number] (CLIA '88). Control reactions for all stains performed were deemed adequate and appropriate by a pathologist prior to evaluation of patient tissue. Some diagnoses were rendered with the assistance of laboratory-developed tests utilizing analyte-specific reagents; the performance characteristic of these tests were determined by [facility] and are not cleared or approved by the [place] Food an Drug administration. Laboratory developed test may only be performed in a facility that is certified by the [facility] as a high-complexity laboratory under CLIA '88. These tests are used for clinical purposes and are not investigational. us Notinfile Unknown LAB PATHOLOGY ORDERABLES Final Result from Last 3 Months Insurance [facility] MEDICARE [facility] [place] [address] Care Teams Hydrologic Engineer Relationship Specialty Start Date End Date Gary Pulliam MD [address] [place] [address] PCP - General Family Medicine 06/25/17 Gary Pulliam MD [address] [place] [address] Family Medicine 06/25/17
== END 2025-02-15 14:06 | disposition home or self-care (01) ==
PROVIDERS: PCP Family Medicine; Visit Provider Student in an Organized Health Care Education/Training Program
DX: Z78.0 Asymptomatic menopausal state (principal); M85.88 Other specified disorders of bone density and structure, other site; M85.852 Other specified disorders of bone density and structure, left thigh; M85.851 Other specified disorders of bone density and structure, right thigh; M81.0 Age-related osteoporosis without current pathological fracture
CPT/HCPCS: 77080

== ENCOUNTER 2025-03-16 09:47 | Outpatient (CLI) | payer MEDICARE, SELFPAY ==
[2025-03-16 10:21] LABS: Hematocrit 46.8 % (37.0-47.0); Hemoglobin 15.2 g/dL (12.0-15.0); Immature Granulocyte Percent A 0.2 % (0-0.5); Lymphocytes Absolute Auto 1.34 K/mm3 (0.9-3.2); Mean Corpuscular HGB Conc 32.5 g/dl (32-36); Mean Corpuscular Hemoglobin 30.6 pg (26-34); Mean Corpuscular Volume 94.2 fl (80-100); Nucleated Red Blood Cells Absolute Auto 0.000 K/mm3 (0.0-0.012); Nucleated Red Blood Cells Perc 0.0 % (0.0-0.2); Platelet Count Result 192 k/mm3 (150-375); Red Blood Count 4.97 M/mm3 (4.2-5.4); White Blood Count 4.2 K/mm3 (4.5-10.0)
[2025-03-16 10:45] LABS: Alanine Aminotransferase 21 U/L (6-35); Albumin Level 4.6 g/dL (3.5-5.1); Alkaline Phosphatase 118 U/L (38-126); Anion Gap 9 mmol/L (4-12); Aspartate Amino Transferase 38 U/L (14-36); Bilirubin,Total 1.1 mg/dL (0.2-1.3); Blood Urea Nitrogen 22 mg/dL (7-17); Calcium 9.6 mg/dL (8.4-10.2); Carbon Dioxide 28 mmol/L (22-30); Chloride 104 mmol/L (98-107); Estimated Glomerular Filt Rate > 60; Glucose 101 mg/dL (65-110); Potassium 4.0 mmol/L (3.4-5.0); Sodium 141 mmol/L (137-145); Total Protein 8.1 g/dL (6.3-8.2)
[2025-03-16 11:12] LABS: Hemoglobin A1C 5.5 % (<5.7)
[2025-03-16 11:24] LABS: Thyroid Stimulating Hormone Reflex 1.510 uIU/mL (0.465-4.68)
== END 2025-03-16 09:48 | disposition home or self-care (01) ==
LOC: ANHLAB 09:48
PROVIDERS: PCP Family Medicine
DX: R73.01 Impaired fasting glucose (principal); I10 Essential (primary) hypertension; R79.89 Other specified abnormal findings of blood chemistry
CPT/HCPCS: 36415; 80053; 83036; 84443; 85025

== ENCOUNTER 2025-08-25 11:27 | Outpatient (CLI) | payer MEDICARE, SELFPAY ==
--- NOTE | ~2025-08-25 | MM_ITS ---
EXAMINATION: MM screening yury BI w elva HISTORY: Screening TECHNIQUE: Craniocaudal and mediolateral oblique 3-D tomosynthesis images were obtained and synthetic 2-D images were generated. CAD analysis was submitted and interpreted. COMPARISON: Comparison to multiple prior studies sequentially, with oldest reviewed study dated 08/15/2022. BREAST PARENCHYMAL COMPOSITION: Dense: The breasts are heterogeneously dense, which may obscure small masses FINDINGS: There is no evidence of suspicious mass, calcification, or architectural distortion to suggest malignancy in either breast. There has been no suspicious interval change. IMPRESSION: 1. No mammographic evidence of malignancy. 2. Recommend routine screening mammography in one year. BI-RADS Category 1: Negative Reviewed, dictated and finalized at location O. 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
== END 2025-08-25 11:28 | disposition home or self-care (01) ==
LOC: MICIMG 11:29
PROVIDERS: PCP Family Medicine; Visit Provider Family Medicine
DX: Z12.31 Encounter for screening mammogram for malignant neoplasm of breast (principal)
CPT/HCPCS: 77063; 77067